=== PATIENT | female | born 1980 | race Caucasian/White ===

== ENCOUNTER 2024-10-22 07:53 | Inpatient (IN) ==
[2024-10-22] MEDS ORDERED: CALCIUM CARBONATE 500 MG CHEWABLE TAB PO PRN (09:47)
[2024-10-22] MEDS ORDERED: LIDOCAINE 1% LOCAL 20 ML VIAL INFIL PRN (09:47)
[2024-10-22] MEDS ORDERED: ACETAMINOPHEN 500 MG TAB PO PRN (09:47)
[2024-10-22] MEDS ORDERED: OXYTOCIN 30 UNITS/NSS 30 UNITS/500 ML BAG IV PRN (09:47)
[2024-10-22] MEDS: DINOPROSTONE 10 MG INSERT PV ONE (10:20)
--- NOTE | 2024-10-22 10:29 | History & Physical Report ---
Date of Service October 22, 2024 Assessment & Plan (1) Encounter for induction of labor: Plan: 44-year-old -0-1-0 at 39 weeks of gestation scheduled for induction of labor at term for AMA, Vital signs stable afebrile, GBS negative, labs pending heart rate reassuring, Cervix unfavorable, Cervidil is placed for cervical ripening, Discussed what to expect during induction of labor, continue to monitor closely, All questions were answered. (2) AMA (advanced maternal age) primigravida 35+: (3) Marginal insertion of umbilical cord affecting management of mother in third trimester: (4) Hx of partial thyroidectomy: Admission and Anticipated Discharge Date Admission Date: October 22, 2024 History of Present Illness Primary Care Provider: Kelsey Vitale DO Patient is a 42-year-old -0-1-0 at 39 weeks who was admitted for induction of labor at term for AMA. She has no complaints. She denies contractions, leakage of fluid, vaginal bleeding. She reports good movements. Her has been complicated by, 1. AMA, NIPT testing was low risk, has seen maternal- medicine, 2. History of trisomy 13 and prior , SAB at 11 weeks, 3. hypothyroidism, on levothyroxine, Allergies Allergy/AdvReac Type Severity Reaction Status Date / Time Sulfa (Sulfonamide Allergy Intermediate Rash Verified 10/22/24 08:52 Antibiotics) Home Medications Medication Instructions Recorded Confirmed Type levothyroxine 112 mcg capsule 112 mcg PO DAILY 10/22/24 10/22/24 History vits no.124-ferrous fum 1 tab PO DAILY 10/22/24 10/22/24 History 27 mg iron-folic acid 800 mcg tablet ( Vitamin) Patient History Medical History AMA (advanced maternal age) primigravida 35+ Marginal insertion of umbilical cord affecting management of mother in third trimester Surgical History Hx of partial thyroidectomy Family History Mother Hypertension Hyperlipidemia Father Hypertension Hyperlipidemia Social History Smoking Status: Former smoker Tobacco Type: Cigarettes Second Hand Exposure: No; Do You Dip or Chew Tobacco: No; Tobacco Cessation Education Requested by Patient: No Hx Alcohol Use: No Hx Substance Use: No Preferred Language: Slovenian Communication Ability: Effective [employer] Supervisor Required: No Beliefs That Will Affect Care: None marital status: Current Living Situation: Spouse Other Information That Helps Us Care for You: No Feels Safe at Home: Yes Safety Concerns: Feels Safe At This Time 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 no history of STDs, no history of chlamydia, gonorrhea, herpes Review of Systems as per Subjective / HPI Physical Exam Constitutional: WD/WN, vitals as above well developed, well nourished and comfortable Gastrointestinal (Abdomen): normal bowel sounds, soft, nontender, no hepat osplenomegaly ( gravid) Genitourinary: normal external appearance OB Exam Abdomen: + vertex ( confirmed with bedside ultrasound) Manual OB Exam: + cervical dilation fingertip, + cervical effacement 10% and + station high ( posterior) OB Exam Monitor Tracing: + external uterine monitor used and + category I Results & Data Vital Signs (Past 12 Hours) Vital Signs Temp Pulse Resp BP 10/22/24 08:21 36.6 C 18 10/22/24 08:16 107 H 133/80 (2) AMA (advanced maternal age) primigravida 35+ Trimester: third trimester Qualified Code(s): O09.513 - Supervision of elderly primigravida, third trimester
[2024-10-22] MEDS: LACTATED RINGER'S 1,000 ML IV PRN (10:49)
[2024-10-22 10:53] LABS: Hematocrit (blood only) 34.3 % (37.0-47.0); Hemoglobin 11.8 g/dl (12.0-16.0); Mean Corpuscular Hemoglobin 32.4 pg (25.0-34.0); Mean Corpuscular Hgb Conc 34.4 g/dL (32.0-36.0); Mean Corpuscular Volume 94.2 fL (80.0-100.0); Mean Platelet Volume 8.6 fL (9.4-12.4); Platelet Count 194 K/uL (130-400); RDW Coefficient of Variation 13.4 % (11.5-14.5); RDW Standard Deviation 46.2 fL (36.4-46.3); Red Blood Count 3.64 M/uL (4.20-5.40)
[2024-10-22 11:11] LABS: Albumin Globulin Ratio 1.3 (0.9-2); Albumin Level 3.5 gm/dl (3.4-5.0); BUN Creatinine Ratio 15.9 (10-20); Bilirubin,Total 0.3 mg/dl (0.2-1.0); Calcium 8.9 mg/dl (8.6-10.3); Globulin 2.7 gm/dl (2.5-4.0); Potassium 3.7 mmol/L (3.5-5.1); Total Protein 6.2 gm/dl (6.0-8.3)
--- OUTSIDE RECORDS SUMMARY | 2024-10-22 12:14 | External Medical Summary ---
Author Name Unknown Address Unknown Organization [id number] [place] [id number] Laboratory Report Ordering Provider Test Date Status NURSE,GW 10/17/2024 13:31:00 Final Observation Date Value Abnormality Reference (Units ) Status Color of Urine by Auto 10/17/2024 13:31:00 Yellow Light Yellow, Yellow Final Clarity, Urine 10/17/2024 13:31:00 Clear Clear Final Glucose [Mass/volume] in Urine by Automated test strip 10/17/2024 13:31:00 Negative Negative (mg/dL) Final Bilirubin.total [Presence] in Urine by Automated test strip 10/17/2024 13:31:00 Negative Negative Final Ketones [Mass/volume] in Urine by Automated test strip 10/17/2024 13:31:00 15 Abnormal Negative (mg/dL) Final Specific gravity, Urine 10/17/2024 13:31:00 >=1.030 1.003-1.030 Final Hemoglobin [Presence] in Urine by Automated test strip 10/17/2024 13:31:00 Negative Negative Final pH, Urine 10/17/2024 13:31:00 6.0 5.0, 5.5, 6.0, 6.5, 7.0, 7.5 (units) Final Protein [Mass/volume] in Urine by Automated test strip 10/17/2024 13:31:00 Trace Abnormal Negative (mg/dL) Final Urobilinogen, Urine 10/17/2024 13:31:00 0.2 0.2, 1.0 (mg/dL) Final Nitrite [Presence] in Urine by Automated test strip 10/17/2024 13:31:00 Negative Negative Final Leukocyte esterase [Presence] in Urine by Automated test strip 10/17/2024 13:31:00 Trace Abnormal Negative Final Performing Location [facility] [place] [id number]
--- OUTSIDE RECORDS SUMMARY | 2024-10-22 12:14 | External Medical Summary | Summary of Care ---
Author Name Unknown Organization [facility] Address [address] [address] Phone [phone] Care Team Providers Care Tool Crib Lead Name Role Phone Kelsey Vitale DO Primary Care Provider [phone] Reason for Visit * Reason Onset Date Comments Forms Request 10/06/2024 [facility] paperwork f or Encounter Details Date Type Department Care Team (Late st Contact Info) Description 10/06/2024 Telephone Gynecology/Obstetrics [facility] [address] [place] [id number] Analilia Perry CRNP [address] [place] [address] Forms Request ([facility] paperwork for ) Allergies Active Allergy Reactions Criticality Noted Date Comments Sulfa Antibiotics Hives 08/13/2018 documented as of this encounter (statuses as of 10/07/2024) Medications 28-0.8 MG Oral Tablet Take by mouth. Active Levothyroxine Sodium 112 MCG Oral Tablet (Levoxyl)Indica tions:Hypothyro idism affecting in first trimester 1 tablet by mouth on Sunday, Sunday, Sunday, Sunday, Sunday; 2 tablets on / (at least 30 min prior to breakfast or other meds) 36 Tablet 6 4 Active documented as of this encounter (statuses as of 10/07/2024) Active Problems Problem Noted Date Diagnosed Date Marginal insertion of umbili zach cord affecting management of mother 06/13/2024 Assessment & Plan (06/13/2024 2:23 PM EST): A marginal cord insertion was noted on today's u/s. This finding may be associated with a mildly increased risk for poor OB outcomes, including PTD, pre-eclampsia, and IUGR. Family history of trisomy 13 03/24/2024 Overview (03/27/2024): Qnatal positive for Trisomy 13 in 10/2023 -- pt had miscarriage Patient deferred genetic counseling referral at this time. Patient desires NIPT. Assessment & Plan (03/25/2024 1:41 PM EDT): Offer genetic counseling referral. At risk for complication of 10/03/2023 Overview (03/27/2024): Moderate risk factors for preeclampsia: nulliparity, age >35YO, and BMI >30 BP Readings from Last 5 Encounters: 03/24/24 118/70 02/15/24 126/68 11/09/23 108/70 11/02/23 135/77 10/30/23 112/64 Discussed recommendation for bASA therapy (aspirin 81mg/day) starting at 13w gestation. Assessment & Plan (03/27/2024 9:57 AM EDT): For patients with more than one moderate risk factor for developing preeclampsia, we recommend aspirin (dose less than 81 mg), starting at 12-28 weeks' gestation (optimally before 16 weeks) continued until delivery. These moderate risk factors include: nulliparity, obesity (BMI greater than 30), race, use of assisted reproductive techniques, family history of preeclampsia (ie mother or sister), age greater than or equal to 35, personal history factors (eg low weight, SGA, or previous adverse outcome, greater than 10-year interval). There is no evidence of increased risk of bleeding complications, abruption, early closure of the ductus arteriosus or intraventricular hemorrhage in women exposed to low-dose aspirin. Contraindications to aspirin use during include: Women with a history of aspirin allergy or hypersensitivity to other salicylates Women with a history of a hypersensitivity to NSAIDs Women with nasal polyps as it can result in life-threatening bronchoconstriction Women with a history of aspirin-induced bronchospasm History of gastrointestinal bleeding, active peptic ulcer disease, and severe hepatic dysfunction Thrombocytopenia (platelets less than 150,000) Assessment & Plan (10/03/2023 9:46 AM EST): For patients with more than one moderate risk factor for developing preeclampsia, we recommend aspirin (dose less than 81 mg), starting at 12-28 weeks' gestation (optimally before 16 weeks) continued until delivery. These moderate risk factors include: nulliparity, obesity (BMI greater than 30), race, use of assisted reproductive techniques, family history of preeclampsia (ie mother or sister), age greater than or equal to 35, personal history factors (eg low weight, SGA, or previous adverse outcome, greater than 10-year interval). There is no evidence of increased risk of bleeding complications, abruption, early closure of the ductus arteriosus or intraventricular hemorrhage in women exposed to low-dose aspirin. Contraindications to aspirin use during include: Women with a history of aspirin allergy or hypersensitivity to other salicylates Women with a history of a hypersensitivity to NSAIDs Women with nasal polyps as it can result in life-threatening bronchoconstriction Women with a history of aspirin-induced bronchospasm History of gastrointestinal bleeding, active peptic ulcer disease, and severe hepatic dysfunction Thrombocytopenia (platelets less than 150,000) High-risk 09/26/2023 Hypothyroidism affecting 09/26/2023 Overview (07/17/2024): Postoperative hypothyroidism History of Graves disease, was on methimazole in past. Patient had thyroidectomy by Dr. Regalado in May 2015, and pathology was benign. Managed by PCP Managed with Levothyroxine 112 mcg daily Lab Results Component Value Date/Time TSH - [facility] 1.55 05/22/2024 04:07 PM TSH - [facility] 1.11 02/25/2020 08:45 AM Assessment & Plan (06/13/2024 1:25 PM EST): TSH Results: Lab Results Component Value Date/Time TSH - [facility] 1.55 05/22/2024 04:07 PM TSH - [facility] 1.33 03/14/2024 08:14 AM TSH - [facility] 0.17 (L) 02/11/2024 12:07 PM TSH - [facility] 1.11 02/25/2020 08:45 AM TSH - [facility] 0.72 04/02/2019 07:24 AM Stable on current levothyroxine. Assessment & Plan (03/25/2024 1:42 PM EDT): CONSIDERATIONS: Discussed with the patient that uncontrolled maternal hypothyroidism is associated with compromised neuropsychological development of the developing fetus in addition to an increased risk of miscarriage, , preeclampsia, placental abruption, low weight infants, and IUFD. These risks are modifiable with thyroid-replacement medications. Thyroid-replacement therapies are safe to use during and essential to normal development. One third of hypothyroid patients will require increased T4 supplementation in . Discussed that she should space her thyroxine dose and her vitamin, iron or calcium doses by 2-3 hours as these can interfere with thyroxine absorption. If hypothyroidism is due to treated Graves' disease, the fetus may be at risk for or goiter/hyperthyroidism due to the residual presence of maternal thyroid receptor antibodies (TRAb). RECOMMENDATIONS: In women with pre- diagnosis of hypothyroidism, recommend assessing TSH every 4-6 weeks until the patient is euthyroid based on TSH (first trimester, 0.1-2.5 mIU/L; second trimester, 0.2-2.5 mIU/L; third trimester, 0.3-2.5 mIU/L). After any adjustment of thyroid replacement dosing, recheck TSH 4-6 weeks later. Once euthyroidism is attained, TSH should be assessed every trimester. In those with previous radioiodine ablation or thyroidectomy, anticipatory increases of T4 replacement by 25% are suggested to decrease the likelihood of significant hypothyroidism in . Maternal Medicine ultrasound is only indicated if patient requires an adjustment of her thyroid replacement therapy dosing after the first trimester of . Refer back to [facility] if this occurs. She should continue to have growth assessments with MFM while she is clinically hypothyroid. If patient experiences thyroid goiter or nodule during , we recommend that she be referred to endocrinology for evaluation and management. is not a contraindication to fine needle aspiration but should be handled at the discretion of the highway technician. If hypothyroidism is poorly controlled, consider weekly NSTs at 32 weeks. For women with a history of treated Graves' disease, third trimester MFM ultrasound should be performed to evaluate for goiter. Please refer immediately back to [facility] for persistent tachycardia on office evaluation as this may also be a symptom of hyperthyroidism. Please check TSI/TRAb after 20 weeks and notify MF if positive by sending a message to the [facility] Advanced Practitioner Pool ([id number]). We will alert pediatrics to the need for possible follow-up. Assessment & Plan (10/01/2023 7:20 PM EST): CONSIDERATIONS: Discussed with the patient that uncontrolled maternal hypothyroidism is associated with compromised neuropsychological development of the developing fetus in addition to an increased risk of miscarriage, , preeclampsia, placental abruption, low weight infants, and IUFD. These risks are modifiable with thyroid-replacement medications. Thyroid-replacement therapies are safe to use during and essential to normal development. One third of hypothyroid patients will require increased T4 supplementation in . Discussed that she should space her thyroxine dose and her vitamin, iron or calcium doses by 2-3 hours as these can interfere with thyroxine absorption. If hypothyroidism is due to treated Graves' disease, the fetus may be at risk for or goiter/hyperthyroidism due to the residual presence of maternal thyroid receptor antibodies (TRAb). RECOMMENDATIONS: In women with pre- diagnosis of hypothyroidism, recommend assessing TSH every 4-6 weeks until the patient is euthyroid based on TSH (first trimester, 0.1-2.5 mIU/L; second trimester, 0.2-2.5 mIU/L; third trimester, 0.3-2.5 mIU/L). After any adjustment of thyroid replacement dosing, recheck TSH 4-6 weeks later. Once euthyroidism is attained, TSH should be assessed every trimester. In those with previous radioiodine ablation or thyroidectomy, anticipatory increases of T4 replacement by 25% are suggested to decrease the likelihood of significant hypothyroidism in . Maternal Medicine ultrasound is only indicated if patient requires an adjustment of her thyroid replacement therapy dosing after the first trimester of . Refer back to [facility] if this occurs. She should continue to have growth assessments with [facility] while she is clinically hypothyroid. If patient experiences thyroid goiter or nodule during , we recommend that she be referred to endocrinology for evaluation and management. is not a contraindication to fine needle aspiration but should be handled at the discretion of the highway technician. If hypothyroidism is poorly controlled, consider weekly NSTs at 32 weeks. For women with a history of treated Graves' disease, third trimester MFM ultrasound should be performed to evaluate for goiter. Please refer immediately back to [facility] for persistent tachycardia on office evaluation as this may also be a symptom of hyperthyroidism. Please check TSI/TRAb after 20 weeks and notify [facility] if positive by sending a message to the [facility] Advanced Practitioner Pool ([id number]). We will alert pediatrics to the need for possible follow-up. AMA (advanced maternal age) multigravida 35+ Overview (04/16/2024): Age 44YO at [facility] Patient desires NIPT - ordered by [facility]. Patient deferred genetic counseling referral at this time. 04/16/24: NIPT LR Assessment & Plan (06/13/2024 1:26 PM EST): Low risk NIPT and msAFP appreciated. Plan to repeat u/s for growth in the third trimester as well as NST at 38 weeks and delivery by EDC reviewed. Assessment & Plan (03/27/2024 9:57 AM EDT): CONSIDERATIONS: We reviewed the most pertinent aspects of the following: Advanced maternal age (AMA) refers to a woman with a nesbitt who will be at the age of 35 or older at the estimated time of delivery and may be associated with increased morbidity. After discussion of the genetic screening/testing options, the patient desires cffDNA screening, and testing was coordinated by [facility]. Cell-free DNA (cffDNA) screening is a genetic screening option that analyzes maternal blood for DNA that is placental in origin and targets the following conditions: Trisomy 21 (Down syndrome), trisomy 18, trisomy 13, and sex chromosome abnormalities such as monosomy X (Soriano syndrome), and sex chromosome trisomies (triple X, Klinefelter syndrome, XYY). It may also evaluate for other genetic alterations such as microdeletions, depending on the specific test. It reveals the sex of the fetus but should generally not be performed solely for this indication. The screening test can be performed after 10 weeks gestation. Results provided are NOT diagnostic, but provide a risk estimate. Types of results include low-risk/negative, high-risk/positive, and inconclusive. Low-risk results convey a low risk for the conditions screened, while high-risk results will indicate which condition is high risk and the likelihood of the condition based on the results. High-risk and inconclusive results would require follow up with a Maternal- Medicine genetic counselor. Amniocentesis would be recommended in the setting of high-risk results. Cost of cffDNA screening is dependent on health insurance plan. Offer MSAFP only (not Quad Screen) at 16-22 weeks if screening for open neural tube defects is desired. Amniocentesis for diagnosis of chromosomal abnormalities is also available. The risk of complications from the procedure and that risk is 1 in 500 (0.2%). In addition to the risk of chromosomal abnormalities, there is an increased risk of congenital/structural anomalies. RECOMMENDATIONS: Recommend MFM anatomy ultrasound at 19-20 weeks gestation. As patient is 40 or greater at [place]: Recommend ultrasound for growth 28-30 weeks gestation. Recommend surveillance with weekly NST at 38 weeks. Recommend delivery by EDC. Assessment & Plan (10/29/2023 3:35 PM EDT): I reviewed the ultrasound with her. There is no heart rate identified on today's ultrasound, indicating a demise. The crown-rump length is consistent with an 11 week 0 day gestation. I explained the above findings with the patient. She has yet to complete any noninvasive screening. I told her that she should not get the blood drawn as the demise we will greatly affect this result. We did review some of the causes of miscarriage at this point in . She did have some spotting with wiping today and some very minimal cramping. I told her if this continues, then she is to call her primary OB provider or come into the hospital to be evaluated. I told her to call her primary OB provider tomorrow for plans on follow-up. Assessment & Plan (10/03/2023 9:43 AM EST): CONSIDERATIONS: We reviewed the most pertinent aspects of the following: Advanced maternal age (AMA) refers to a woman with a nesbitt who will be at the age of 35 or older at the estimated time of delivery and may be associated with increased morbidity. After discussion of the genetic screening/testing options, the patient desires cffDNA screening, and testing was coordinated by [facility]. Cell-free DNA (cffDNA) screening is a genetic screening option that analyzes maternal blood for DNA that is placental in origin and targets the following conditions: Trisomy 21 (Down syndrome), trisomy 18, trisomy 13, and sex chromosome abnormalities such as monosomy X (Soriano syndrome), and sex chromosome trisomies (triple X, Klinefelter syndrome, XYY). It may also evaluate for other genetic alterations such as microdeletions, depending on the specific test. It reveals the sex of the fetus but should generally not be performed solely for this indication. Results provided are NOT diagnostic, but provide a risk estimate. Types of results include low-risk/negative, high-risk/positive, and inconclusive. Low-risk results convey a low risk for the conditions screened, while high-risk results will indicate which condition is high risk and the likelihood of the condition based on the results. High-risk and inconclusive results would require follow up with a Maternal- Medicine genetic counselor. Amniocentesis would be recommended in the setting of high-risk results. Offer MSAFP only (not Quad Screen) at 16-22 weeks if screening for open neural tube defects is desired. Amniocentesis for diagnosis of chromosomal abnormalities is also available. The risk of complications from the procedure and that risk is 1 in 500 (0.2%). In addition to the risk of chromosomal abnormalities, there is an increased risk of congenital/structural anomalies. RECOMMENDATIONS: Recommend MFM anatomy ultrasound at 19-20 weeks gestation. As patient is 40 or greater at [place]: Recommend ultrasound for growth 28-30 weeks gestation. Recommend surveillance with weekly NST at 38 weeks. Recommend delivery by EDC. Obesity in , antepartum 09/26/2023 Overview (03/27/2024): The patient's pre-gravid BMI is 31.63. Class 1 Early 1hr GCT ordered. Assessment & Plan (03/25/2024 1:42 PM EDT): CONSIDERATIONS: Discussed obstetrical risks associated with class I obesity (pre- BMI of 30 to 34.9) Reviewed that the accuracy of ultrasound at diagnosing anomalies is significantly decreased for women with an increased BMI. RECOMMENDATIONS: Recommend restricting weight gain during to 11-20 pounds. Consider referral for nutrition consult. Recommend evaluation for signs and symptoms (snoring, excessive daytime sleepiness witnessed apnea or unexplained hypoxia) of obstructive sleep apnea. If any of these are present, referral to Sleep Medicine specialist for further evaluation should be considered. Recommend performing gestational diabetes mellitus screen at first visit and repeat again at 26-28 weeks if early screen is normal. Recommend Maternal- Medicine ultrasound for anatomy at 20 weeks. Assessment & Plan (10/01/2023 7:17 PM EST): DISCUSSION: Discussed obstetrical risks associated with class I obesity (pre- BMI of 30 to 34.9). Reviewed that the accuracy of ultrasound at diagnosing anomalies is significantly decreased for women with an increased BMI. RECOMMENDATIONS: Recommend restricting weight gain during to 11-20 pounds. Consider referral for nutrition consult. Recommend evaluation for signs and symptoms (snoring, excessive daytime sleepiness witnessed apnea or unexplained hypoxia) of obstructive sleep apnea. If any of these are present, referral to Sleep Medicine specialist for further evaluation should be considered. Recommend performing gestational diabetes mellitus screen at first visit and repeat again at 26-28 weeks if early screen is normal. Recommend Maternal- Medicine ultrasound for anatomy at 20 weeks. Postoperative hypothyroidism 08/13/2018 Overview (08/13/2018): S/p partial thyroidectomy Chronic allergic rhinitis 08/13/2018 Estimated Date of Delivery Comme nts Yes 10/29/2024 Based on last me nstrual period of 01/23/2024 (Exact Date) documented as of this encounter (statuses as of 10/07/2024) Resolved Problems Problem Noted Date Diagnosed Date Resolved Date Maternal care for (suspected ) chromosomal abnormality in fetus, trisomy 13, fetus 1 10/31/2023 03/24/2024 Overview (10/31/2023): Qnatal positive for Trisomy 13 in 10/2023 -- pt had miscarriage History of Graves' disease 10/01/2023 0 03/24/2024 Overview (10/03/2023): History of Graves disease - S/P partial thyroidectomy Per MFM: Please check TSI/TRAb after 20 weeks and notify MFM if positive by sending a message to the [facility] Advanced Practitioner Pool ([id number]). Abnormal mammogram 04/17/2022 Overview (04/17/2022): Subcentimeter focal asymmetry about 8/9 o'clock middle to posterior depth, right breast. Additional imaging is advised. No mammographic evidence of malignancy In the left breast. Further imaging right breast ordered documented as of this encounter (statuses as of 10/07/2024) Immunizations Name Administration Dates Next Due DTaP Dipth/Tet/Acell Pertussis (Infanrix), Peds 04/24/1986,10/18/1983,1982,08/15,1982 HIB PRP-T, 4 Dose, PF, IM (H iberix, ActHib) 10/18/1983,1982,1982,06/16 Hepatitis B, 0-19 yrs 07/12/1998,01/13/1998,0512/1997 IPV - Polio Virus Vaccine (Inact) 1983,1982,1982,06/16 MMR - Measles/Mumps/Rubella Vaccine 12/02/1997,1 1982 Meningococcal Conjugate Vacc ine (Menactra/Menveo) 07/30/2000 Seasonal Influenza, PF, 6 M & above, IM , (FluLaval or Fluzone) 04/21/2022,04/19/2021,04/15/2020,08/18 Seasonal Influenza, Trivalen t, (IIV3), PF, (Fluzone) 06/19/2024 TDAP, Age 7 and older, IM (Adacel) 08/04/2024, documented as of this encounter Social History Tobacco Use Types Packs/Day Years Used Date Smoking Tobacco: Former Cigarettes 0.3 5 2 008 - 2013 Passive Smoke Exposure: Never Smokeless Tobacco: Never Alcohol Use Standard Drinks/Week Comments Not Currently 0 (1 standard drink = 0.6 oz pur e alcohol) denies in AUDIT-C Answer Date Recorded Q1: How often do you have a drink containing alcohol? 4 or more times a week 11/24/2020 Q2: How many drinks containi ng alcohol do you have on a typical day when you are drinking? 1 or 2 Q3: How often do you have si x or more drinks on one occasion? Less than monthly 11/24/2020 PHQ-2 Answer Date Recorded PHQ Adult Total Score 1 02/15/2024 Hunger Vital Sign Answer Date Recorded Within the past 12 months, y ou worried that your food would run out before you got the money to buy more. Never true 06/05/20 24 Within the past 12 months, t he food you bought just didn't last and you didn't have money to get more. Never true 06/05/2024 [place] Depression Scale Answer Date Recorded [place] Depression Scale Total 3 09/18/2024 The thought of harming myself has occurred to me . Never 09/18/2024 Childcare Answer Date Recorded Do you feel overwhelmed with taking care of a child, family member or friend? No 06/05/2024 Does your family need help f inding childcare? (Household - for ages 0-17 years) Not on file 06/05/2024 Clothing Answer Date Recorded Have you been unable to get clothing when it was really needed? No 06/05/2024 Is your family able to get c lothes or diapers when needed? (Household - for ages 0-17 years) Not on file 06/05/2024 Personal Safety Answer Date Recorded Do you feel unsafe or have concerns for your saf ety? No 06/05/2024 Do you have concerns for you r family's safety? (Household - for ages 0-17 years) Not on file 06/05/2024 Utilities Answer Date Recorded Do you have trouble paying y our heating, water, or electric bill? No 06/05/2024 Is your family able to pay t he heat, water, or electric bill? (Household - for ages 0-17 years) Not on file 06/05/2024 Does your family have access to good internet? (Household - for ages 0-17 years) Not on file 06/05/2024 Employment Status Answer Date Recorded Are you unemployed or without regular income? No 06/05/2024 Does the household have a [facility] source [facility] income? (Household - for ages 0-17 years) Not on file 06/05/2024 Social Connections Answer Date Recorded How often do you feel lonely or isolated from th ose around you? Never 06/05/2024 Financial Resource Strain Answer Date R ecorded Do you have any trouble payi ng for your medications, or do you think you might in the future? No 06/05/2024 Does your family have troubl e paying for medicine? (Household - for ages 0-17 years) Not on file 06/05/2024 Transportation Needs Answer Date Record ed Do you have trouble getting a ride to medical visits or work? (Adult - for ages 18 years and over) Not on file 06/05/2024 Does your family have a hard time getting a ride to doctors visits? (Household - for ages 0-17 years) Not on file 06/05/2024 Has lack of transportation k ept you from medical appointments, meetings, work, or from getting things needed for daily living? Check all that apply. No 06/05/2024 Do you (or your family) have trouble finding or paying for a ride (transportation)? (Household - for ages 0-17 years) Not on file 06/05/2024 Housing Stability Answer Date Recorded Do you currently live in a s helter or have no steady place to sleep at night? No 06/05/2024 Do you think you are at risk of becoming homeless? (Adult - for ages 18 years and over) Not on file 06/05/2024 Does your family worry about paying for your home or becoming homeless? (Household - for ages 0-17 years) Not on file 1 08/05/2023 Are you homeless or worried that you might be in the future? No 06/05/2024 Are you (or your family) tiara eless or worried that you might be in the future? (Household - for ages 0-17 years) Not on file Food Insecurity Answer Date Recorded Do you need food for this week? No 06/05/2024 Are you able to get enough f ood for your family? (Household - for ages 0-17 years) Not on file 06/05/2024 Does your family need food t his week? (Household - for ages 0-17 years) Not on file 06/05/2024 Do you always have enough fo od for your family? (Household - for ages 0-17 years) Not on file 06/05/2024 Food Insecurity Answer Date Recorded Within the past 12 months, y ou worried that your food would run out before you got the money to buy more. Never true 06/05/20 24 Within the past 12 months, t he food you bought just didn't last and you didn't have money to get more. Never true 06/05/2024 Do you need food for this week? No 06/05/2024 Estimated Date of Delivery Comme nts Yes 10/29/2024 Based on last me nstrual period of 01/23/2024 (Exact Date) Sex and Gender Information Value Date Recorded Sex Assigned at Female 04/06/2021 4:24 PM EDT Legal Sex Female 5:44 AM EST Gender Identity Female 04/06/2021 4:24 PM EDT Sexual Orientation Straight 04/06/2021 4: 24 PM EDT Occupation Industry Job Start Date Job End Date [employer] Not on file Not on file Not on file documented as of this encounter Miscellaneous Notes * Telephone Encounter - Maria Del Carmen Seay LPN - 10/06/2024 2:13 PM EDT Paperwork completed/signed by provider. Copy made and placed in scan bin. Original in pick up worker folder in triage. * Telephone Encounter - Maria Del Carmen Seay LPN - 10/06/2024 12:50 PM EDT Pt dropping of FMLA paperwork. Paperwork placed in Casandra's office for completion. documented in this encounter Plan of Treatment Upcoming Encounters Date Type Department Care Team (Late st Contact Info) Description 10/15/2024 11:30 AM EDT Office Visit Gynecology/Obstetrics Nicole Osorio [address] [place] [address] Taryn Johnson CRNP [address] [place] [address] [facility] Non Stress Tests Omar [address] [place] [address] 11/12/2024 11:30 AM EDT Telemedicine Gynecology/Obstetrics Nicole Osorio [address] [place] [address] Taryn Johnson CRNP [address] [place] [address] 12/04/2024 12:00 PM EDT Office Visit Gynecology/Obstetrics Nicole Osorio [address] [place] [address] Taryn Jonhson CRNP [address] [place] [address] Health Maintenance Due Date Last Done Comments HPV/Co-Test 2012 Cervical Cancer Screening 09/16/2022 Pap Smear 09/16/2022 09/16/2019, 08/30, 01/14/2018 COVID-19 Vaccine ( season) 2024 Mammogram 06/18/2024 06/18/2023, 05/31, 05/02/2022, Additional history exists Depression Screening 02/14/2025 02/15/2024 TSH 08/04/2025 08/04/2024, 04/30, 03/14/2024, Additional history exists Diabetes Screening 01/23/2026 01/23/2023, 0 01/23/2022, 02/25/2020, Additional history exists Lipid Panel 01/24/2028 01/23/2023, 12/29, 02/25/2020, Additional history exists DTap/Tdap Vaccines (8 - Td or Tdap) 08/04/2034 08/04/2024, 01/01/2014, 04/24/1986, Additional history exists Hepatitis B Vaccine Completed 07/12/1998, 01/13/1998, 12/02/1997 MENINGOCOCCAL (MENACTRA/MENVEO) Completed 07/30/2000 Influenza Vaccine (FLU shot) Completed , 04/21/2022, 04/19/2021, Additional history exists HPV (Gardasil) Vaccine Aged Out No lo nger eligible based on patient's age to complete this topic Meningitis B Vaccine (Bexsero/Trumemba) Aged Out No longer eligible based on patient's age to complete this topic Pneumococcal Vaccine: Pediatrics (0 to 5 Years) and At-Risk Patients (6 to 18 Years and 19+ Years) Aged Out No longer eligib le based on patient's age to complete this topic documented as of this encounter Goals Goal Patient Goal Type Associated Problems Recent Progress Patient-Stated? Author Reminders Care Plan OB Reminders No Rasheeda Provider documented as of this encounter Medical Devices Not on filedocumented as of this encounter Additional Health Concerns Active Problems Noted Date Diagnosed Date OB Reminders 04/08/2024 documented as of this encounter Care Teams Tool Crib Lead Relationship Specialty Start Date End Date Kelsey Vitale DO [address] [place] [address] PCP - General Family Medicine 11/02/23 documented as of this encounter
--- OUTSIDE RECORDS SUMMARY | 2024-10-22 12:14 | External Medical Summary | Summary of Care ---
Author Name Unknown Organization [facility] Address [address] [facility] [place] [address] Phone [phone] Care Team Providers Care Property Utilization Manager Name Role Phone Kelsey Vitale DO Primary Care Provider Encounter Details Date Type Department Care Team (Late st Contact Info) Description 10/10/2024 Telephone [facility] [address] [place] [address] Raymond Wood MD [address] [place] [phone] Allergies Active Allergy Reactions Criticality Noted Date Comments Sulfa Antibiotics Hives 08/13/2018 documented as of this encounter (statuses as of 10/10/2024) Medications 28-0.8 MG Oral Tablet Take by mouth. Active Levothyroxine Sodium 112 MCG Oral Tablet (Levoxyl)Indica tions:Hypothyro idism affecting in first trimester 1 tablet by mouth on Sunday, Sunday, Sunday, Sunday, Sunday; 2 tablets on Tu/Thurs (at least 30 min prior to breakfast or other meds) 36 Tablet 6 4 Active documented as of this encounter (statuses as of 10/10/2024) Active Problems Problem Noted Date Diagnosed Date [...] first trimester of . Refer back to MFM if this occurs. She should continue to have growth assessments with MFM while she is clinically hypothyroid. If patient experiences thyroid goiter or nodule during , we recommend that she be referred to endocrinology for evaluation and management. is not a contraindication to fine needle aspiration but should be handled at the discretion of the quotation clerk. If hypothyroidism is poorly controlled, consider weekly NSTs at 32 weeks. For women with a history of treated Graves' disease, third trimester MFM ultrasound should be performed to evaluate for goiter. Please refer immediately back to MFM for persistent tachycardia on office evaluation as this may also be a symptom of hyperthyroidism. Please check TSI/TRAb after 20 weeks and notify MFM if positive by sending a message to the [facility] Advanced Practitioner Pool ([id number]). We will alert pediatrics to the need [...] first trimester of . Refer back to [facility] if this occurs. She should continue to have growth assessments with MFM while she is clinically hypothyroid. If patient experiences thyroid goiter or nodule during , we recommend that she be referred to endocrinology for evaluation and management. is not a contraindication to fine needle aspiration but should be handled at the discretion of the quotation clerk. If hypothyroidism is poorly controlled, consider weekly NSTs at 32 weeks. For women with a history of treated Graves' disease, third trimester MFM ultrasound should be performed to evaluate for goiter. Please refer immediately back to MFM for persistent tachycardia on office evaluation as this may also be a symptom of hyperthyroidism. Please check TSI/TRAb after 20 weeks and notify MFM if positive by sending a message to the [facility] Advanced Practitioner Pool ([id number]). We will alert pediatrics to the need for possible follow-up. AMA (advanced maternal age) multigravida 35+ Overview (04/16/2024): Age 44YO at [facility] Patient desires NIPT - ordered by [facility]. Patient deferred genetic counseling referral at [...] cffDNA screening, and testing was coordinated by [facility]. Cell-free DNA (cffDNA) screening is a [...] cffDNA screening, and testing was coordinated by [facility]. Cell-free DNA (cffDNA) screening is a [...] as of this encounter (statuses as of 10/10/2024) Resolved Problems Problem Noted Date Diagnosed Date [...] positive by sending a message to the [facility] Advanced Practitioner Pool ([id number]). Abnormal mammogram 04/17/2022 3 Overview (04/17/2022): Subcentimeter focal asymmetry about 8/9 o'clock middle to posterior depth, right breast. Additional imaging is advised. No mammographic evidence of malignancy In the left breast. Further imaging right breast ordered documented as of this encounter (statuses as of 10/10/2024) Immunizations Name Administration Dates Next Due DTaP Dipth/Tet/Acell Pertussis (Infanrix), Peds 04/24/1986,10/18/1983,1982,08/15,1982 HIB PRP-T, 4 Dose, PF, IM (H iberix, ActHib) 10/18/1983,1982,1982,06/16 Hepatitis B, 0-19 yrs 07/12/1998,01/13/1998,12/1997 IPV - Polio Virus Vaccine (Inact) 1983,1982,1982,06/16 [...] money to get more. Never true 06/05/2024 Coin Depression Scale Answer Date Recorded Coin Depression Scale Total 3 09/18/2024 The thought [...] No 06/05/2024 Does the household have a re gular source of income? (Household - for ages [...] Industry Job Start Date Job End Date [employer] Not on file Not on file Not on file documented as of this encounter Miscellaneous Notes * Telephone Encounter - Yolis Duarte RN - 10/10/2024 11:38 AM EDT Pt c/o back pain. Just started today. ONly when sitting. She has not tried tylenol or heat. Advisedto try this and see if it helps and if not, may be more of a late stage concern. Pt is aware. documented in this encounter Plan of Treatment Upcoming Encounters Date Type Department Care Team (Late st Contact Info) Description 10/15/2024 11:30 AM EDT Office Visit Gynecology/Obstetrics [address] [place] [address] Taryn Johnson CRNP [address] [place] [address] Osorio Non Stress Tests Omar [address] [place] [address] 11/12/2024 11:30 AM EDT Telemedicine Gynecology/Obstetrics [facility] [address] [place] [address] Taryn Johnson CRNP [address] [place] [address] 12/04/2024 12:00 PM EDT Office Visit Gynecology/Obstetrics [facility] [address] [place] [address] Taryn Johnson CRNP [address] [place] [address] Health Maintenance Due Date Last Done Comments [...] Author Reminders Care Plan OB Reminders No Mychart, Provider documented as of this encounter Medical Devices Not on filedocumented as of this encounter Additional Health Concerns Active Problems Noted Date Diagnosed Date OB Reminders 04/08/2024 documented as of this encounter Care Teams Property Utilization Manager Relationship Specialty Start Date End Date Kelsey Vitale DO [address] [place] [address] PCP - General Family Medicine 11/02/23 documented as of this encounter
--- OUTSIDE RECORDS SUMMARY | 2024-10-22 12:14 | External Medical Summary | Summary of Care ---
Author Name Unknown Organization [facility] Address [address] [facility] [address] Phone [phone] Care Team Providers Care Braiding Operator Name Role Phone Kelsey Vitale DO Primary Care Provider [phone] Reason for Visit * Reason Comments Return Visit Non Stress Test Encounter Details Date Type Department Care Team (Late st Contact Info) Description 10/15/2024 11:30 AM EDT Office Visit Gynecology/Obstetric s Nicole Osorio [address] [place] [address] Taryn Johnson CRNP [address] [place] [address] [place] Non Stress Tests Omar [address] [place] [address] High-risk in third trimester*; Postoperative hypothyroidism; Hypothyroidism affecting in third trimester; Antepartum multigravida of advanced maternal age; Obesity in , antepartum; At risk for complication of ; Family history of trisomy 13; Marginal insertion of umbilical cord affecting management of mother; Multigravida of advanced maternal age in third trimester Allergies Active Allergy Reactions Criticality Noted Date Comments Sulfa Antibiotics Hives 08/13/2018 documented as of this encounter (statuses as of 10/15/2024) Medications 28-0.8 MG Oral Tablet Take by mouth. Active Levothyroxine Sodium 112 MCG Oral Tablet (Levoxyl)Indica tions:Hypothyro idism affecting in first trimester 1 tablet by mouth on Sunday, Sunday, Sunday, Sunday, Sunday; 2 tablets on / (at least 30 min prior to breakfast or other meds) 36 Tablet 6 4 Active documented as of this encounter (statuses as of 10/15/2024) Active Problems Problem Noted Date Diagnosed Date [...] first trimester of . Refer back to [facility] if this occurs. She should continue to have growth assessments with MFM while she is clinically hypothyroid. If patient experiences thyroid goiter or nodule during , we recommend that she be referred to endocrinology for evaluation and management. is not a contraindication to fine needle aspiration but should be handled at the discretion of the water plant maintenance mechanic. If hypothyroidism is poorly controlled, consider weekly NSTs at 32 weeks. For women with a history of treated Graves' disease, third trimester MFM ultrasound should be performed to evaluate for goiter. Please refer immediately back to [facility] for persistent tachycardia on office evaluation as this may also be a symptom of hyperthyroidism. Please check TSI/TRAb after 20 weeks and notify [facility] if positive by sending a message to the [facility] Advanced Practitioner Pool ([id number]). We will alert pediatrics to the need [...] first trimester of . Refer back to [facility] if this occurs. She should continue to have growth assessments with MFM while she is clinically hypothyroid. If patient experiences thyroid goiter or nodule during , we recommend that she be referred to endocrinology for evaluation and management. is not a contraindication to fine needle aspiration but should be handled at the discretion of the water plant maintenance mechanic. If hypothyroidism is poorly controlled, consider weekly NSTs at 32 weeks. For women with a history of treated Graves' disease, third trimester MFM ultrasound should be performed to evaluate for goiter. Please refer immediately back to [facility] for persistent tachycardia on office evaluation as this may also be a symptom of hyperthyroidism. Please check TSI/TRAb after 20 weeks and notify [facility] if positive by sending a message to the [facility] Advanced Practitioner Pool ([id number]). We will alert pediatrics to the need for possible follow-up. AMA (advanced maternal age) multigravida 35+ Overview (04/16/2024): Age 44YO at [facility] Patient desires NIPT - ordered by [facility]. Patient deferred genetic counseling referral at [...] cffDNA screening, and testing was coordinated by [facility]. Cell-free DNA (cffDNA) screening is a [...] increased risk of congenital/structural anomalies. RECOMMENDATIONS: Recommend M anatomy ultrasound at 19-20 weeks gestation. As [...] cffDNA screening, and testing was coordinated by [facility]. Cell-free DNA (cffDNA) screening is a genetic [...] as of this encounter (statuses as of 10/15/2024) Resolved Problems Problem Noted Date Diagnosed Date [...] positive by sending a message to the [facility] Advanced Practitioner Pool ([id number]). Abnormal mammogram 04/17/2022 3 Overview (04/17/2022): Subcentimeter focal asymmetry about 8/9 o'clock middle to posterior depth, right breast. Additional imaging is advised. No mammographic evidence of malignancy In the left breast. Further imaging right breast ordered documented as of this encounter (statuses as of 10/15/2024) Immunizations Name Administration Dates Next Due DTaP [...] money to get more. Never true 06/05/2024 [place] Depression Scale Answer Date Recorded [place] Depression Scale Total 3 09/18/2024 The thought [...] 06/05/2024 Does the household have a re lar source of income? (Household - for ages [...] Industry Job Start Date Job End Date [employer] Not on file Not on file Not on file documented as of this encounter Last Filed Vital Signs Vital Sign Reading Time Taken Comments Blood Pressure 134/88 10/15/2024 11:30 AM EDT Pulse - - Temperature - - Respiratory Rate - - Oxygen Saturation - - Inhaled Oxygen Concentration - - Weight 108.5 kg (239 lb 3.2 oz) 025 11:30 AM EDT Height - - Body Mass Index 36.37 06/19/2024 9:12 AM EST documented in this encounter Progress Notes * Taryn Johnson CRNP - 10/15/2024 11:51 AM EDT 38w No complaints. Baby is active. No contractions or bleeding. BP mildly elevated today. Urine dip with trace proteinuria. Return in 2 days for BP and urine dip. ASSESSMENT assessment with Non-stress Test completed on 10/15/2024 at 38weeks gestation for indication ofAMA heart baseline: 135 bpm Variability: Moderate Decelerations: absent Accelerations: present Contractions: None NST start time: 1421 (time stamp on NST) NST stop time: 1445 NST strip reviewed, interpreted, and approved by OB Taryn lofton CRNP . NST strip stored in clinic storage file * Luz Gray CMA - 10/15/2024 11:30 AM EDT [id number] Denies any concerns documented in this encounter Plan of Treatment Upcoming Encounters Date Type Department Care Team (Late st Contact Info) Description 10/17/2024 1:30 PM EDT Nurse Only Gynecology/Obstetrics [facility] [address] [place] [address] Gw, Nurse Obgyn Injection [address] [place] [address] 11/12/2024 11:30 AM EDT Telemedicine Gynecology/Obstetrics Nicole Osorio [address] [place] [address] Taryn Johnson CRNP [address] [place] [address] 12/04/2024 12:00 PM EDT Office Visit Gynecology/Obstetrics Nicole Osorio [address] [place] [address] Taryn Johnson CRNP [address] [place] [address] Health Maintenance Due Date Last Done Comments [...] Author Reminders Care Plan OB Reminders No Magot, Provider documented as of this encounter Medical Devices Not on filedocumented as of this encounter Procedures Procedure Name Priority Date/Time Associated Diagnosis Comments URINALYSIS OBSTETRICS, POINT OF CARE [facility] 10/15/2024 11:56 AM EDT documented in this encounter Results * (ABNORMAL) URINALYSIS OBSTETRICS, POINT OF CARE (10/15/2024 11:56 AM EDT) Color, Urine Yellow Light Yellow, Yellow 10/15/2024 12:15 PM EDT [facility] Clarity, Urine Clear Clear 10/15/2024 12:15 PM EDT [facility] Glucose, Urine Negative Negative mg/dL 10/15/2024 12:15 PM EDT [facility] [place] [facility] [facility] Bilirubin, Urine Negative Negative 10/15/2024 12:15 PM EDT [facility] [place] [facility] Ketone, Urine 15(A) Negative mg/dL 10/15/2024 12:15 PM EDT [facility] [place] [facility] [facility] Specific [place], Urine 1.020 1.003 - 1.030 10/15/2024 12:15 PM EDT [facility] [place] [facility] [facility] Blood, Urine Negative Negative 10/15/2024 12:15 PM EDT [facility] [place] [facility] pH, Urine 7.0 5.0, 5.5, 6.0, 6.5, 7.0, 7.5 units 10/15/2024 12:15 PM EDT [facility] [place] [facility] [facility] Protein, Urine Trace(A) Negative mg/dL 10/15/2024 12:15 PM EDT [facility] [place] [facility] Urobilinogen, Urine 0.2 0.2, 1.0 mg/dL 10/15/2024 12:15 PM EDT [facility] [place] [facility] [facility] Nitrite, Urine Negative Negative 10/15/2024 12:15 PM EDT [facility] [place] [facility] Esterase, Urine Small(A) Negative 10/15/2024 12:15 PM EDT [facility] Urine 10/15/2024 11:5 6 AM EDT 10/15/2024 12:14 PM EDT [facility] POINT OF CARE TE ST DOCKED DEVICE UNSOLICITED RESULTS Final Result Performing Organization Address City/State/[facility] [[email or web address]] Co de Phone Number [facility] [address] [facility] [place] [address] documented in this encounter Visit Diagnoses Diagnosis Supervision of high-risk , first trimester- Primary 8 weeks gestation of state, incidental Primigravida of advanced maternal age in first trimester Hypothyroidism affecting in first trimester History of Graves' disease Personal history of other endocrine, metabolic, and immunity disorders Obesity in , antepartum Obesity complicating , childbirth, or the puerperium, antepartum condition or complication At risk for complication of Primigravida of advanced maternal age in first trimester- Primary Hypothyroidism affecting in first trimester Obesity in , antepartum Obesity complicating , childbirth, or the puerperium, antepartum condition or complication Supervision of high risk in first trimester- Primary Unspecified high-risk 9 weeks gestation of state, incidental Multigravida of advanced maternal age in first trimester Family history of trisomy 13 Obesity in , antepartum Obesity complicating , childbirth, or the puerperium, antepartum condition or complication Hypothyroidism affecting in first trimester At risk for complication of Obesity in , antepartum- Primary Obesity complicating , childbirth, or the puerperium, antepartum condition or complication Multigravida of advanced maternal age in second trimester Encounter for anatomic survey 20 weeks gestation of state, incidental Hypothyroidism affecting in second trimester Marginal insertion of umbilical cord affecting management of mother High-risk in third trimester- Primary Postoperative hypothyroidism Postsurgical hypothyroidism Hypothyroidism affecting in third trimester Antepartum multigravida of advanced maternal age Obesity in , antepartum Obesity complicating , childbirth, or the puerperium, antepartum condition or complication At risk for complication of Family history of trisomy 13 Marginal insertion of umbilical cord affecting management of mother Multigravida of advanced maternal age in third trimester documented in this encounter Additional Health Concerns Active Problems Noted Date Diagnosed Date OB Reminders 04/08/2024 documented as of this encounter Care Teams Braiding Operator Relationship Specialty Start Date End Date Kelsey Vitale DO [address] [address] PCP - General Family Medicine 11/02/23 documented as of this encounter
--- OUTSIDE RECORDS SUMMARY | 2024-10-22 12:14 | External Medical Summary | Summary of Care ---
Author Name Unknown Organization [facility] Address [address] [facility] [address] Phone [phone] Care Team Providers Care [employer] Teacher Name Role Phone Kelsey Vitale DO Primary Care Provider [phone] Reason for Visit * Reason Comments Return Visit Encounter Details Date Type Department Care Team (Late st Contact Info) Description 10/06/2024 8:30 AM EDT Office Visit Gynecology/Obstetric s Nicole Osorio [address] [place] [address] Analilia ePrry CRNP [address] [place] [address] High-risk in third trimester*; Postoperative hypothyroidism; Hypothyroidism affecting in third trimester; Multigravida of advanced maternal age in third trimester; Obesity in , antepartum; At risk for complication of ; Family history of trisomy 13; Marginal insertion of umbilical cord affecting management of mother Allergies Active Allergy Reactions Criticality Noted Date Comments Sulfa Antibiotics Hives 08/13/2018 documented as of this encounter (statuses as of 10/06/2024) Medications 28-0.8 MG Oral Tablet Take by mouth. Active Levothyroxine Sodium 112 MCG Oral Tablet (Levoxyl)Indica tions:Hypothyro idism affecting in first trimester 1 tablet by mouth on Sunday, Sunday, Sunday, Sunday, Sunday; 2 tablets on / (at least 30 min prior to breakfast or other meds) 36 Tablet 6 4 Active documented as of this encounter (statuses as of 10/06/2024) Active Problems Problem Noted Date Diagnosed Date [...] first trimester of . Refer back to [facility] if this occurs. She should continue to have growth assessments with MFM while she is clinically hypothyroid. If patient experiences thyroid goiter or nodule during , we recommend that she be referred to endocrinology for evaluation and management. is not a contraindication to fine needle aspiration but should be handled at the discretion of the newspaper carrier. If hypothyroidism is poorly controlled, consider weekly NSTs at 32 weeks. For women with a history of treated Graves' disease, third trimester MFM ultrasound should be performed to evaluate for goiter. Please refer immediately back to [facility] for persistent tachycardia on office evaluation as this may also be a symptom of hyperthyroidism. Please check TSI/TRAb after 20 weeks and notify [facility] if positive by sending a message to the [facility] Advanced Practitioner Pool ([id number]). We will alert pediatrics to the need [...] first trimester of . Refer back to [facility] if this occurs. She should continue to have growth assessments with MFM while she is clinically hypothyroid. If patient experiences thyroid goiter or nodule during , we recommend that she be referred to endocrinology for evaluation and management. is not a contraindication to fine needle aspiration but should be handled at the discretion of the newspaper carrier. If hypothyroidism is poorly controlled, consider weekly NSTs at 32 weeks. For women with a history of treated Graves' disease, third trimester MFM ultrasound should be performed to evaluate for goiter. Please refer immediately back to [facility] for persistent tachycardia on office evaluation as this may also be a symptom of hyperthyroidism. Please check TSI/TRAb after 20 weeks and notify MF if positive by sending a message to the [facility] Advanced Practitioner Pool ([id number]). We will alert pediatrics to the need for possible follow-up. AMA (advanced maternal age) multigravida 35+ Overview (04/16/2024): Age 44YO at [facility] Patient desires NIPT - ordered by [facility]. Patient deferred genetic counseling referral at this [...] cffDNA screening, and testing was coordinated by MFM. Cell-free DNA (cffDNA) screening is a genetic [...] cffDNA screening, and testing was coordinated by [facility]. Cell-free DNA (cffDNA) screening is a genetic [...] increased risk of congenital/structural anomalies. RECOMMENDATIONS: Recommend [facility] anatomy ultrasound at 19-20 weeks gestation. As [...] as of this encounter (statuses as of 10/06/2024) Resolved Problems Problem Noted Date Diagnosed Date [...] positive by sending a message to the [facility] Advanced Practitioner Pool ([id number]). Abnormal mammogram 04/17/2022 Overview (04/17/2022): Subcentimeter focal asymmetry about 8/9 o'clock middle to posterior depth, right breast. Additional imaging is advised. No mammographic evidence of malignancy In the left breast. Further imaging right breast ordered documented as of this encounter (statuses as of 10/06/2024) Immunizations Name Administration Dates Next Due DTaP [...] money to get more. Never true 06/05/2024 Creighton Depression Scale Answer Date Recorded Creighton Depression Scale Total 3 09/18/2024 The thought [...] Sign Reading Time Taken Comments Blood Pressure 114/68 10/06/2024 8:23 AM EDT Pulse - - Temperature - - Respiratory Rate - - Oxygen Saturation - - Inhaled Oxygen Concentration - - Weight 107.5 kg (237 lb) 10/06/2024 8:23 AM EDT Height - - Body Mass Index 36.04 06/19/2024 9:12 AM EST documented in this encounter Progress Notes * Analilia Perry CRNP - 10/06/2024 8:33 AM EDT 36w5d Baby is active. No ctx, leaking, bleeding. Plans to use condoms . Agreeable to IOL in 39th week, scheduled. Start weekly NSTs at 38 weeks. 1 week NURYS. Lead Sharepoint Developer Documentation Provider requested kier tender. Name of kier tender: JAYSON Coon * Maria Del Carmen Seay LPN - 10/06/2024 8:24 AM EDT 36w5d Denies vaginal bleeding/rom + movement documented in this encounter Plan of Treatment Upcoming Encounters Date Type Department Care Team (Late st Contact Info) Description 10/15/2024 11:30 AM EDT Office Visit Gynecology/Obstetrics Irving[facility] Osorio [address] [place] [address] Taryn Johnson CRNP [address] [place] [address] Charlotte Osorio Stress Tests Omar [address] [place] [address] 11/12/2024 11:30 AM EDT Telemedicine Gynecology/Obstetrics [facility] Venegass [address] [place] [address] Taryn Johnson CRNP [address] [place] [address] 12/04/2024 12:00 PM EDT Office Visit Gynecology/Obstetrics [facility] Osorio [address] [place] [address] Taryn Johnson CRNP [address] [place] [address] Scheduled Orders Name Type Priority Associated Diagnoses Orde r Schedule GROUP B STREP CULTURE/PCR Lab Routine High-risk in third trimester Expected: 10/06/2024, Expires: 10/06/2025 Health Maintenance Due Date Last Done Comments [...] Not on filedocumented as of this encounter Visit Diagnoses Diagnosis Supervision of [...] Postsurgical hypothyroidism Hypothyroidism affecting in third trimester Multigravida of advanced maternal age in third trimester Obesity in , antepartum Obesity complicating , childbirth, or the puerperium, antepartum condition or complication At risk for complication of Family history of trisomy 13 Marginal insertion of umbilical cord affecting management of mother documented in this encounter Additional Health Concerns Active Problems Noted Date Diagnosed Date OB Reminders 04/08/2024 documented as of this encounter Care Teams [employer] Auto [employer] Teacher Relationship Specialty Start Date End Date Kelsey Vitale DO [address] [address] PCP - General Family Medicine 11/02/23 documented as of this encounter
--- OUTSIDE RECORDS SUMMARY | 2024-10-22 12:14 | External Medical Summary | Summary of Care ---
Author Name Unknown Organization [facility] Address [address] [address] Phone [phone] Care Team Providers Care Clinical Pharmacy Specialist Name Role Phone Kelsey Vitale DO Primary Care Provider [phone] Reason for Visit * Reason Comments Blood Pressure Check Encounter Details Date Type Department Care Team (Late st Contact Info) Description 10/17/2024 1:30 PM EDT Nurse Only Gynecology/Obstetrics [facility] [address] [place] [address] Gw, Nurse Obgyn Injection [address] [place] [address] Blood Pressure Check Allergies Active Allergy Reactions Criticality Noted Date Comments Sulfa Antibiotics Hives 08/13/2018 documented as of this encounter (statuses as of 10/17/2024) Medications 28-0.8 MG Oral Tablet Take by mouth. Active Levothyroxine Sodium 112 MCG Oral Tablet (Levoxyl)Indica tions:Hypothyro idism affecting in first trimester 1 tablet by mouth on Sunday, Sunday, Sunday, Sunday, Sunday; 2 tablets on / (at least 30 min prior to breakfast or other meds) 36 Tablet 6 4 Active documented as of this encounter (statuses as of 10/17/2024) Active Problems Problem Noted Date Diagnosed Date [...] be handled at the discretion of the stone and concrete washer. If hypothyroidism is poorly controlled, consider weekly NSTs at 32 weeks. For women with a history of treated Graves' disease, third trimester MFM ultrasound should be performed to evaluate for goiter. Please refer immediately back to [facility] for persistent tachycardia on office evaluation as this may also be a symptom of hyperthyroidism. Please check TSI/TRAb after 20 weeks and notify MF if positive by sending a message to the [facility] Advanced Practitioner Pool ([id number]). We will alert pediatrics to the need [...] first trimester of . Refer back to [facility] if this occurs. She should continue to have growth assessments with MF while she is clinically hypothyroid. If patient experiences thyroid goiter or nodule during , we recommend that she be referred to endocrinology for evaluation and management. is not a contraindication to fine needle aspiration but should be handled at the discretion of the stone and concrete washer. If hypothyroidism is poorly controlled, consider weekly NSTs at 32 weeks. For women with a history of treated Graves' disease, third trimester MFM ultrasound should be performed to evaluate for goiter. Please refer immediately back to [facility] for persistent tachycardia on office evaluation as this may also be a symptom of hyperthyroidism. Please check TSI/TRAb after 20 weeks and notify MFM if positive by sending a message to the [facility] Advanced Practitioner Pool ([id number]). We will alert pediatrics to the need for possible follow-up. AMA (advanced maternal age) multigravida 35+ Overview (04/16/2024): Age 44YO at [facility] Patient desires NIPT - ordered by [facility]. Patient deferred genetic counseling referral at [...] cffDNA screening, and testing was coordinated by [facility]. Cell-free DNA (cffDNA) screening is a [...] cffDNA screening, and testing was coordinated by [facility]. Cell-free DNA (cffDNA) screening is a [...] As patient is 40 or greater at [facility]: Recommend ultrasound for growth 28-30 weeks gestation. [...] as of this encounter (statuses as of 10/17/2024) Resolved Problems Problem Noted Date Diagnosed Date [...] positive by sending a message to the [facility] Advanced Practitioner Pool ([id number]). Abnormal mammogram 04/17/2022 Overview (04/17/2022): Subcentimeter focal asymmetry about 8/9 o'clock middle to posterior depth, right breast. Additional imaging is advised. No mammographic evidence of malignancy In the left breast. Further imaging right breast ordered documented as of this encounter (statuses as of 10/17/2024) Immunizations Name Administration Dates Next Due DTaP [...] money to get more. Never true 06/05/2024 Jean Depression Scale Answer Date Recorded Jean Depression Scale Total 3 09/18/2024 The thought [...] Sign Reading Time Taken Comments Blood Pressure 124/80 10/17/2024 1:35 PM EDT Pulse - - Temperature - - Respiratory Rate - - Oxygen Saturation - - Inhaled Oxygen Concentration - - Weight - - Height - - Body Mass Index - - documented in this encounter Nursing Notes * Luz Gray CMA - 10/17/2024 1:36 PM EDT Patient here for BP check. In office 124/80. Denies vision changes. States she has a headache but more in her neck from how she slept. documented in this encounter Plan of Treatment Upcoming Encounters Date Type Department Care Team (Late st Contact Info) Description 11/12/2024 11:30 AM EDT Telemedicine Gynecology/Obstetrics Nicole Osorio [address] [place] [address] Taryn Johnson CRNP [address] [place] [address] 12/04/2024 12:00 PM EDT Office Visit Gynecology/Obstetrics Nicole Osorio [address] [place] [address] Taryn Johnson CRNP [address] [place] [address] Health Maintenance Due Date Last Done Comments [...] Diagnosis Comments URINALYSIS OBSTETRICS, POINT OF CARE [place] 10/17/2024 1:31 PM EDT documented in this encounter Results * (ABNORMAL) URINALYSIS OBSTETRICS, POINT OF CARE (10/17/2024 1:31 PM EDT) Color, Urine Yellow Light Yellow, Yellow 10/17/2024 1:34 PM EDT [facility] Clarity, Urine Clear Clear 10/17/2024 1:34 PM EDT [facility] Glucose, Urine Negative Negative mg/dL 10/17/2024 1:34 PM EDT [facility] Bilirubin, Urine Negative Negative 10/17/2024 1:34 PM EDT [facility] Ketone, Urine 15(A) Negative mg/dL 10/17/2024 1:34 PM EDT [facility] Specific [place]man, Urine >=1.030 1.003 - 1.030 10/17/2024 1:34 PM EDT [facility] Blood, Urine Negative Negative 10/17/2024 1:34 PM EDT [facility] pH, Urine 6.0 5.0, 5.5, 6.0, 6.5, 7.0, 7.5 units 10/17/2024 1:34 PM EDT [facility] Protein, Urine Trace(A) Negative mg/dL 10/17/2024 1:34 PM EDT [facility] Urobilinogen, Urine 0.2 0.2, 1.0 mg/dL 10/17/2024 1:34 PM EDT [facility] Nitrite, Urine Negative Negative 10/17/2024 1:34 PM EDT [facility] Esterase, Urine Trace(A) Negative 10/17/2024 1:34 PM EDT [facility] Urine 10/17/2024 1:31 PM EDT 10/17/2024 1:34 PM EDT us Nurse Obgyn Injection Gw LAB POINT OF CA RE TEST DOCKED DEVICE UNSOLICITED RESULTS Final Result [facility] [address] [place] [address] documented in this encounter Additional Health Concerns Active Problems Noted Date Diagnosed Date OB Reminders 04/08/2024 documented as of this encounter Care Teams Clinical Pharmacy Specialist Relationship Specialty Start Date End Date Kelsey Vitale DO [address] [address] PCP - General Family Medicine 11/02/23 documented as of this encounter
--- OUTSIDE RECORDS SUMMARY | 2024-10-22 12:14 | External Medical Summary ---
Author Name Unknown Address Unknown Organization [facility] [place] [address] Laboratory Report Ordering Provider Test Date Status MAYRA DARNELL 10/15/2024 11:56:00 Final Observation Date Value Abnormality Reference (Units ) Status Color of Urine by Auto 10/15/2024 11:56:00 Yellow Light Yellow, Yellow Final Clarity, Urine 10/15/2024 11:56:00 Clear Clear Final Glucose [Mass/volume] in Urine by Automated test strip 10/15/2024 11:56:00 Negative Negative (mg/dL) Final Bilirubin.total [Presence] in Urine by Automated test strip 10/15/2024 11:56:00 Negative Negative Final Ketones [Mass/volume] in Urine by Automated test strip 10/15/2024 11:56:00 15 Abnormal Negative (mg/dL) Final Specific gravity, Urine 10/15/2024 11:56:00 1.020 1.003-1.030 Final Hemoglobin [Presence] in Urine by Automated test strip 10/15/2024 11:56:00 Negative Negative Final pH, Urine 10/15/2024 11:56:00 7.0 5.0, 5.5, 6.0, 6.5, 7.0, 7.5 (units) Final Protein [Mass/volume] in Urine by Automated test strip 10/15/2024 11:56:00 Trace Abnormal Negative (mg/dL) Final Urobilinogen, Urine 10/15/2024 11:56:00 0.2 0.2, 1.0 (mg/dL) Final Nitrite [Presence] in Urine by Automated test strip 10/15/2024 11:56:00 Negative Negative Final Leukocyte esterase [Presence] in Urine by Automated test strip 10/15/2024 11:56:00 Small Abnormal Negative Final Performing Location [facility] [address] [place] [address]
--- OUTSIDE RECORDS SUMMARY | 2024-10-22 12:15 | External Medical Summary | Summary of Care ---
Author Name Unknown Organization [facility] Address [address] [place] [address] Phone [phone] Care Team Providers Care Resolution Analyst Name Role Phone IamKelsey prado Marlys MENDEZ Primary Care Provider [phone] Reason for Visit * Evaluate & Treat - Unlimited Visits (Within 10 days (routine)) - Authorized Specialty Diagnoses / Procedures Referred By Contnawaf t Referred To Contact Obstetrics/Gynecology / Maternal Medicine Diagnoses High-risk in first trimester Primigravida of advanced maternal age in first trimester Obesity in , antepartum Hypothyroidism affecting in first trimester Analilia Perry CRNP [address] [facility] [place] [address] Phone: tel: fax: Referral ID Status Reason Start Date Expiration Date Visits Requested Visits Authorized [id number] Authorized Specialty Services Required 09/26/2023 09/26/[phone] Encounter Details Date Type Department Care Team (Late st Contact Info) Description 08/21/2024 8:45 AM EST Office Visit Avionics Technician Obstetrics Maternal Medicine, Omar Osorio [address] [place] [address] Verna Valencia, DO [address] [place] [address] Obesity in , antepartum*; Multigravida of advanced maternal age in second trimester; Marginal insertion of umbilical cord affecting management of mother; 30 weeks gestation of ; Ultrasound for screening for growth restriction Allergies Active Allergy Reactions Criticality Noted Date Comments Sulfa Antibiotics Hives 08/13/2018 documented as of this encounter (statuses as of 08/21/2024) Medications 28-0.8 MG Oral Tablet Take by mouth. Active Levothyroxine Sodium 112 MCG Oral Tablet (Levoxyl)Indica tions:Hypothyro idism affecting in first trimester 1 tablet by mouth on Sunday, Sunday, Sunday, Sunday, Sunday; 2 tablets on / (at least 30 min prior to breakfast or other meds) 36 Tablet 6 4 Active documented as of this encounter (statuses as of 08/21/2024) Active Problems Problem Noted Date Diagnosed Date [...] first trimester of . Refer back to [facility] if this occurs. She should continue to have growth assessments with MFM while she is clinically hypothyroid. If patient experiences thyroid goiter or nodule during , we recommend that she be referred to endocrinology for evaluation and management. is not a contraindication to fine needle aspiration but should be handled at the discretion of the microsoft dynamics ax consultant. If hypothyroidism is poorly controlled, consider weekly NSTs at 32 weeks. For women with a history of treated Graves' disease, third trimester MFM ultrasound should be performed to evaluate for goiter. Please refer immediately back to [facility] for persistent tachycardia on office evaluation as this may also be a symptom of hyperthyroidism. Please check TSI/TRAb after 20 weeks and notify [facility] if positive by sending a message to the [facility] Advanced Practitioner Pool ([id number]). We will alert pediatrics to the need [...] first trimester of . Refer back to [facility] if this occurs. She should continue to have growth assessments with MFM while she is clinically hypothyroid. If patient experiences thyroid goiter or nodule during , we recommend that she be referred to endocrinology for evaluation and management. is not a contraindication to fine needle aspiration but should be handled at the discretion of the microsoft dynamics ax consultant. If hypothyroidism is poorly controlled, consider weekly [...] positive by sending a message to the [facility] Advanced Practitioner Pool ([id number]). We will alert pediatrics to the need for possible follow-up. AMA (advanced maternal age) multigravida 35+ Overview (04/16/2024): Age 44YO at [facility] Patient desires NIPT - ordered by [facility]. Patient deferred genetic counseling referral at [...] cffDNA screening, and testing was coordinated by [facility]. Cell-free DNA (cffDNA) screening is a [...] cffDNA screening, and testing was coordinated by [facility]. Cell-free DNA (cffDNA) screening is a [...] as of this encounter (statuses as of 08/21/2024) Resolved Problems Problem Noted Date Diagnosed Date [...] positive by sending a message to the [facility] Advanced Practitioner Pool ([id number]). Abnormal mammogram 04/17/2022 3 Overview (04/17/2022): Subcentimeter focal asymmetry about 8/9 o'clock middle to posterior depth, right breast. Additional imaging is advised. No mammographic evidence of malignancy In the left breast. Further imaging right breast ordered documented as of this encounter (statuses as of 08/21/2024) Immunizations Name Administration Dates Next Due DTaP Dipth/Tet/Acell Pertussis (Infanrix), Peds 04/24/1986,10/18/1983,1982,08/15,1982 HIB PRP-T, 4 Dose, PF, IM (H iberix, ActHib) 10/18/1983,1982,1982,06/16 Hepatitis B, 0-19 yrs 07/12/1998,01/13/1998,05/0 12/1997 IPV - Polio Virus Vaccine (Inact) 1983,1982,1982,06/16 [...] money to get more. Never true 06/05/2024 Cinebar Depression Scale Answer Date Recorded Cinebar Depression Scale Total 3 03/24/2024 The thought of harming myself has occurred to me . Never 03/24/2024 Childcare Answer Date Recorded Do you feel [...] No 06/05/2024 Does the household have a [facility] source of income? (Household - for ages [...] ages 0-17 years) Not on file 06/05/2024 Estimated Date of Delivery Comme nts [...] on file documented as of this encounter Progress Notes * Verna Valencia, - 08/21/2024 10:10 AM EST Brook presented today at 30w1d for an ultrasound for the following indications: Obesity in , antepartum Multigravida of advanced maternal age in second trimester Marginal insertion of umbilical cord affecting management of mother 30 weeks gestation of Ultrasound for screening for growth restriction Ultrasound summary: Patient presented at 30w 1d for growth assessment. Normal growth with EFW 1502 g at 34%ile. Normal CAROL at 12 cm. Cephalic presentation. I reviewed the ultrasound images. Brook was given the opportunity to meet with me if she had anyquestions. Please refer to the ultrasound report for additional details about today's ultrasound examination. RECOMMENDATIONS: Follow up with MFM for ultrasound as clinically indicated. Weekly NSTs at 38 weeks. See prior formal MFM consultation note. Thank you for allowing us to participate in the care of this patient. Please call with any questions. Verna Valencia DO 08/21/2024 10:10 AM documented in this encounter Plan of Treatment Upcoming Encounters Date Type Department Care Team (Late st Contact Info) Description 09/05/2024 8:45 AM EST Office Visit Gynecology/Obstetrics [facility] [address] [place] [address] Taryn Johnson CRNP [address] [place] [address] Health Maintenance Due Date Last Done Comments [...] of umbilical cord affecting management of mother Obesity in , antepartum- Primary Obesity complicating , childbirth, or the puerperium, antepartum condition or complication Multigravida of advanced maternal age in second trimester Marginal insertion of umbilical cord affecting management of mother 30 weeks gestation of state, incidental Ultrasound for screening for growth restriction screening for growth retardation using ultrasonics documented in this encounter Additional Health Concerns Active Problems Noted Date Diagnosed Date OB Reminders 04/08/2024 documented as of this encounter Care Teams Resolution Analyst Relationship Specialty Start Date End Date Kelsey Vitale DO [address] [place] [address] PCP - General Family Medicine 11/02/23 documented as of this encounter
--- OUTSIDE RECORDS SUMMARY | 2024-10-22 12:15 | External Medical Summary | Summary of Care ---
Author Name Unknown Organization [facility] Address [address] [facility] [place] [address] Phone [phone] Care Team Providers Care Resp Ther Name Role Phone Kelsey Vitale DO Primary Care Provider [phone] Encounter Details Date Type Department Care Team (Late st Contact Info) Description 08/19/2024 Population Health External Data Unspecified Department Allergies Active Allergy Reactions Criticality Noted Date Comments Sulfa Antibiotics Hives 08/13/2018 documented as of this encounter (statuses as of 08/19/2024) Medications 28-0.8 MG Oral Tablet Take by mouth. Active Levothyroxine Sodium 112 MCG Oral Tablet (Levoxyl)Indica tions:Hypothyro idism affecting in first trimester 1 tablet by mouth on Sunday, Sunday, Sunday, Sunday, Sunday; 2 tablets on / (at least 30 min prior to breakfast or other meds) 36 Tablet 6 4 Active documented as of this encounter (statuses as of 08/19/2024) Active Problems Problem Noted Date Diagnosed Date [...] be handled at the discretion of the radiology therapist. If hypothyroidism is poorly controlled, consider weekly [...] positive by sending a message to the [facility] Advanced Practitioner Pool ([id number]). We will alert pediatrics to the need [...] first trimester of . Refer back to [facility] if this occurs. She should continue to have growth assessments with MFM while she is clinically hypothyroid. If patient experiences thyroid goiter or nodule during , we recommend that she be referred to endocrinology for evaluation and management. is not a contraindication to fine needle aspiration but should be handled at the discretion of the radiology therapist. If hypothyroidism is poorly controlled, consider weekly NSTs at 32 weeks. For women with a history of treated Graves' disease, third trimester MFM ultrasound should be performed to evaluate for goiter. Please refer immediately back to M for persistent tachycardia on office evaluation as this may also be a symptom of hyperthyroidism. Please check TSI/TRAb after 20 weeks and notify MFM if positive by sending a message to the [facility] Advanced Practitioner Pool ([id number]). We will alert pediatrics to the need for possible follow-up. AMA (advanced maternal age) multigravida 35+ Overview (04/16/2024): Age 44YO at [facility] Patient desires NIPT - ordered by [facility]. Patient deferred genetic counseling referral at [...] cffDNA screening, and testing was coordinated by [facility]. Cell-free DNA (cffDNA) screening is a [...] cffDNA screening, and testing was coordinated by [facility]. Cell-free DNA (cffDNA) screening is a [...] increased risk of congenital/structural anomalies. RECOMMENDATIONS: Recommend [facility] anatomy ultrasound at 19-20 weeks gestation. As [...] as of this encounter (statuses as of 08/19/2024) Resolved Problems Problem Noted Date Diagnosed Date Resolved Date Maternal care for (suspected ) chromosomal abnormality in fetus, trisomy 13, fetus 1 10/31/2023 03/24/2024 Overview (10/31/2023): Qnatal positive for Trisomy 13 in 10/2023 -- pt had miscarriage History of Graves' disease 10/01/2023 0 03/24/2024 Overview (10/03/2023): History of Graves disease - S/P partial thyroidectomy Per [facility]: Please check TSI/TRAb after 20 weeks and notify [facility] if positive by sending a message to the [facility] Advanced Practitioner Pool ([id number]). Abnormal mammogram 04/17/2022 3 Overview (04/17/2022): Subcentimeter focal asymmetry about 8/9 o'clock middle to posterior depth, right breast. Additional imaging is advised. No mammographic evidence of malignancy In the left breast. Further imaging right breast ordered documented as of this encounter (statuses as of 08/19/2024) Immunizations Name Administration Dates Next Due DTaP [...] money to get more. Never true 06/05/2024 [place] Depression Scale Answer Date Recorded [place] Depression Scale Total 3 03/24/2024 The thought [...] on file documented as of this encounter Plan of Treatment Upcoming Encounters Date Type Department Care Team (Late st Contact Info) Description 08/21/2024 8:45 AM EST Imaging Maternal Medicine Imaging, [facility] [address] [facility] [facility] [place] [id number] 08/21/2024 8:45 AM EST Office Visit Wall Taper Helper Obstetrics Maternal Medicine, [facility] [address] [facility] [place] [address] Verna Valencia, DO [address] [place] [address] 08/21/2024 10:15 AM EST Office Visit Gynecology/Obstetrics [facility] [address] [place] [address] Taryn Johnson CRNP [address] [place] [address] Health Maintenance Due Date Last Done Comments [...] documented as of this encounter Care Teams Resp Ther Relationship Specialty Start Date End Date Kelsey Vitale DO [address] [place] [address] PCP - General Family Medicine 11/02/23 documented as of this encounter
--- OUTSIDE RECORDS SUMMARY | 2024-10-22 12:15 | External Medical Summary ---
Author Name Unknown Address Unknown Organization K01:[facility] [place] [facility] [address] [place] [address] Laboratory Report Ordering Provider Test Date Status ANDRA ZENG 10/06/2024 08:37:19 Final Observation Date Value Abnormality Reference (Units ) Status Streptococcus agalactiae DNA [Presence] in Specimen by ADRIAN with probe detection 10/06/2024 08:37:19 Negative Negative Final No Group B Streptococcus det ected by culture-enhanced PCR (amplified probe). GBS GBSCT - [facility] 10/06/2024 08:37:19 0.0 Final GBS SPCCT - [facility] 10/06/2024 08:37:19 31.1 Final Performing Location [facility] - [address] [place] [address]
--- OUTSIDE RECORDS SUMMARY | 2024-10-22 12:15 | External Medical Summary | Summary of Care ---
Author Name Unknown Organization [facility] Address [address] [facility] [place] [address] Phone [phone] Care Team Providers Care Paper Sales Representative Name Role Phone IamKelsey prado Primary Care Provider [phone] Encounter Details Date Type Department Care Team (Late st Contact Info) Description 05/12/2024 Telephone Gynecology/Obstetrics [facility] [address] [place] [address] Miguel A Salomon MD [address] [place] [address] Allergies Active Allergy Reactions Criticality Noted Date Comments Sulfa Antibiotics Hives 08/13/2018 documented as of this encounter (statuses as of 08/11/2024) Medications 28-0.8 MG Oral Tablet Take by mouth. Active Levothyroxine Sodium 112 MCG Oral Tablet (Levoxyl)Indica tions:Hypothyro idism affecting in first trimester 1 tablet by mouth on Sunday, Sunday, Sunday, Sunday, Sunday; 2 tablets on /Th (at least 30 min prior to breakfast or other meds) 36 Tablet 6 4 Active documented as of this encounter (statuses as of 08/11/2024) Active Problems Problem Noted Date Diagnosed Date [...] be handled at the discretion of the soaking room operator. If hypothyroidism is poorly controlled, consider weekly [...] positive by sending a message to the [facility] Advanced Practitioner Pool ([id number]). We will alert pediatrics to the need [...] first trimester of . Refer back to [facility] if this occurs. She should continue to have growth assessments with MFM while she is clinically hypothyroid. If patient experiences thyroid goiter or nodule during , we recommend that she be referred to endocrinology for evaluation and management. is not a contraindication to fine needle aspiration but should be handled at the discretion of the soaking room operator. If hypothyroidism is poorly controlled, consider weekly NSTs at 32 weeks. For women with a history of treated Graves' disease, third trimester MFM ultrasound should be performed to evaluate for goiter. Please refer immediately back to [facility] for persistent tachycardia on office evaluation as this may also be a symptom of hyperthyroidism. Please check TSI/TRAb after 20 weeks and notify MFM if positive by sending a message to the [facility] Advanced Practitioner Pool ([id number]). We will alert pediatrics to the need for possible follow-up. AMA (advanced maternal age) multigravida 35+ Overview (04/16/2024): Age 44YO at [facility] Patient desires NIPT - ordered by [facility]. Patient deferred genetic counseling referral at this [...] cffDNA screening, and testing was coordinated by [facility]. Cell-free DNA (cffDNA) screening is a genetic [...] cffDNA screening, and testing was coordinated by [facility]. Cell-free DNA (cffDNA) screening is a genetic [...] increased risk of congenital/structural anomalies. RECOMMENDATIONS: Recommend [facility] anatomy ultrasound at 19-20 weeks gestation. As [...] as of this encounter (statuses as of 08/11/2024) Resolved Problems Problem Noted Date Diagnosed Date [...] positive by sending a message to the [facility] Advanced Practitioner Pool ([id number]). Abnormal mammogram 04/17/2022 3 Overview (04/17/2022): Subcentimeter focal asymmetry about 8/9 o'clock middle to posterior depth, right breast. Additional imaging is advised. No mammographic evidence of malignancy In the left breast. Further imaging right breast ordered documented as of this encounter (statuses as of 08/11/2024) Immunizations Name Administration Dates Next Due DTaP Dipth/Tet/Acell Pertussis (Infanrix), Peds 04/24/1986,10/18/1983,1982,08/15,1982 HIB PRP-T, 4 Dose, PF, IM (H iberix, ActHib) 10/18/1983,1982,1982,06/16 Hepatitis B, 0-19 yrs 07/12/1998,01/13/1998,0512/1997 IPV - Polio Virus Vaccine (Inact) 1983,1982,1982,06/16 MMR - Measles/Mumps/Rubella Vaccine 12/02/1997,1 1982 Meningococcal Conjugate Vacc ine (Menactra/Menveo) 07/30/2000 Seasonal Influenza, PF, 6 M & above, IM , (FluLaval or Fluzone) 04/21/2022,04/19/2021,04/15/2020,08/18 TDAP, Age 7 and older, IM (Adacel) 01/01/2014 documented as of this encounter Social History Tobacco Use Types Packs/Day Years Used Date Smoking Tobacco: Former Cigarettes 0.3 5 2 008 - 2012 Passive Smoke Exposure: Never Smokeless Tobacco: Never [...] money to get more. Never true 06/05/2024 [place] Depression Scale Answer Date Recorded [place] Depression Scale Total 3 03/24/2024 The thought [...] encounter Miscellaneous Notes * Telephone Encounter - Heaven Ching LPN - 05/12/2024 12:24 PM EDT Spoke with pt she verbalized understanding. Please schedule pt for US in 2 weeks with her 05/22 appt * Telephone Encounter - Miguel A Salomon MD - 05/12/2024 12:18 PM EDT Should call if bleeding gets worse Pelvic rest Recommend to repeat US in 2 weeks Thanks * Telephone Encounter - Heaven Ching LPN - 05/12/2024 9:38 AM EDT I received report form [facility]. Pt went to er over the weekend for brown discharge. US Report Subchorionic bleed measuring 0.6 x 0.6 x 1.1 cm HR of 141 bpm. Report also showed echogenic debris seen near the internal os possible amniotic fluid sludge. Pt also had bacteria in urine and possible bv, yeast infection and was prescribed keflex 500mg every 8 hrs for 7 days and metronidazole 250mg tid for 7 days. Please review and advise * Telephone Encounter - Heaven Ching LPN - 05/12/2024 8:19 AM EDT Pt called in with going to ER in [place] over the weekend for brown discharge. Pt was toldjessy has a subchorionic hematoma and sludge in her uterus along with bacteria in her urine she was put on 2 abx and was told to call us right away on mon. I told pt that she needs to sign a record release from and I gave pt our fax number to have records faxed. I told pt once we receive these we will discuss with hospital admissions clerk provider for recommendations. Pt said she was going to call them right away documented in this encounter Plan of Treatment Upcoming Encounters Date Type Department Care Team (Late st Contact Info) Description 08/21/2024 8:45 AM EST Imaging Maternal Medicine Imaging, [facility] [address] [place] [phone] 08/21/2024 10:15 AM EST Office Visit Gynecology/Obstetrics Nicole Osorio [address] [place] [address] Taryn Johnson CRNP [address] [place] [address] Health Maintenance Due Date Last Done Comments [...] Not on filedocumented as of this encounter Results * US PREG LIMITED 1 OR MORE FETUSES (05/22/2024 3:39 PM EDT) Anatomical Region Laterality Modality Pelvis, Body Ultrasound 05/22/2024 4:04 PM EDT Impressions 05/22/2024 4:02 PM EDT IMPRESSION 1. Normal heart rate. 2. No subchorionic hemorrhage. Narrative 05/22/2024 4:02 PM EDT EXAM US PREG LIMITED 1 OR MORE FETUSES - 05/22/2024 3:39 pm HISTORY Subchorionic bleed COMPARISON 04/18/2024 TECHNIQUE Sonographic examination performed. FINDINGS : Nesbitt Presentation: Breech heart rate: 154 bpm Placenta: Posterior No subchorionic hemorrhage visualized. Procedure Note Olegario Carter MD - 05/22/2024 EXAM US PREG LIMITED 1 OR MORE FETUSES - 05/22/2024 3:39 pm HISTORY Subchorionic bleed COMPARISON 04/18/2024 TECHNIQUE Sonographic examination performed. FINDINGS : Nesbitt Presentation: Breech heart rate: 154 bpm Placenta: Posterior No subchorionic hemorrhage visualized. IMPRESSION IMPRESSION 1. Normal heart rate. 2. No subchorionic hemorrhage. us Miguel A Resendiz MD RAD ULTRASOUND Final Re sult documented in this encounter Visit Diagnoses Diagnosis [...] first trimester At risk for complication of Vaginal bleeding in - Primary Unspecified antepartum hemorrhage, unspecified as to episode of care Vaginal bleeding in Unspecified antepartum hemorrhage, unspecified as to episode of care Obesity in , antepartum- Primary Obesity complicating [...] documented as of this encounter Care Teams Paper Sales Representative Relationship Specialty Start Date End Date Kelsey Vitale DO [address] [place] [address] PCP - General Family Medicine 11/02/23 documented as of this encounter
--- OUTSIDE RECORDS SUMMARY | 2024-10-22 12:15 | External Medical Summary | Summary of Care ---
Author Name Unknown Organization [facility] Address [address] [address] [address] Phone [phone] Care Team Providers Care Carburizing Furnace Operator Name Role Phone Kelsey Vitale DO Primary Care Provider [phone] Reason for Visit * Reason Comments Return Visit Encounter Details Date Type Department Care Team (Late st Contact Info) Description 09/05/2024 8:45 AM EST Office Visit Gynecology/Obstetric s [facility] Osorio [address] [place] [address] Taryn Johnson CRNP [address] [place] [address] High-risk in third trimester*; Postoperative hypothyroidism; Hypothyroidism affecting in third trimester; Antepartum multigravida of advanced maternal age; Obesity in , antepartum; At risk for complication of ; Family history of trisomy 13; Marginal insertion of umbilical cord affecting management of mother Allergies Active Allergy Reactions Criticality Noted Date Comments Sulfa Antibiotics Hives 08/13/2018 documented as of this encounter (statuses as of 09/05/2024) Medications 28-0.8 MG Oral Tablet Take by mouth. Active Levothyroxine Sodium 112 MCG Oral Tablet (Levoxyl)Indica tions:Hypothyro idism affecting in first trimester 1 tablet by mouth on Sunday, Sunday, Sunday, Sunday, Sunday; 2 tablets on / (at least 30 min prior to breakfast or other meds) 36 Tablet 6 4 Active documented as of this encounter (statuses as of 09/05/2024) Active Problems Problem Noted Date Diagnosed Date [...] trimester of . Refer back to [facility] if this occurs. She should continue to have growth assessments with [facility] while she is clinically hypothyroid. If patient experiences thyroid goiter or nodule during , we recommend that she be referred to endocrinology for evaluation and management. is not a contraindication to fine needle aspiration but should be handled at the discretion of the software quality tester. If hypothyroidism is poorly controlled, consider weekly NSTs at 32 weeks. For women with a history of treated Graves' disease, third trimester MF ultrasound should be performed to evaluate for goiter. Please refer immediately back to [facility] for persistent tachycardia on office evaluation as this may also be a symptom of hyperthyroidism. Please check TSI/TRAb after 20 weeks and notify [facility] if positive by sending a message to the [facility] Advanced Practitioner Pool ([id number]). We will alert pediatrics to the need [...] trimester of . Refer back to [facility] if this occurs. She should continue to have growth assessments with MFM while she is clinically hypothyroid. If patient experiences thyroid goiter or nodule during , we recommend that she be referred to endocrinology for evaluation and management. is not a contraindication to fine needle aspiration but should be handled at the discretion of the software quality tester. If hypothyroidism is poorly controlled, consider weekly NSTs at 32 weeks. For women with a history of treated Graves' disease, third trimester MFM ultrasound should be performed to evaluate for goiter. Please refer immediately back to [facility] for persistent tachycardia on office evaluation as this may also be a symptom of hyperthyroidism. Please check TSI/TRAb after 20 weeks and notify MFM if positive by sending a message to the [facility] Advanced Practitioner Pool ([id number]). We will alert pediatrics to the need for possible follow-up. AMA (advanced maternal age) multigravida 35+ Overview (04/16/2024): Age 44YO at [facility] Patient desires NIPT - ordered by [facility]. Patient deferred genetic counseling referral [...] screening, and testing was coordinated by [facility]. Cell-free DNA (cffDNA) screening is [...] screening, and testing was coordinated by [facility]. Cell-free DNA (cffDNA) screening is [...] as of this encounter (statuses as of 09/05/2024) Resolved Problems Problem Noted Date Diagnosed Date [...] by sending a message to the [facility] Advanced Practitioner Pool ([id number]). Abnormal mammogram 04/17/2022 Overview (04/17/2022): Subcentimeter focal asymmetry about 8/9 o'clock middle to posterior depth, right breast. Additional imaging is advised. No mammographic evidence of malignancy In the left breast. Further imaging right breast ordered documented as of this encounter (statuses as of 09/05/2024) Immunizations Name Administration Dates Next Due DTaP [...] money to get more. Never true 06/05/2024 [place] Depression Scale Answer Date Recorded [place] Depression Scale Total 3 03/24/2024 The thought [...] Sign Reading Time Taken Comments Blood Pressure 122/68 09/05/2024 8:41 AM EST Pulse - - Temperature - - Respiratory Rate - - Oxygen Saturation - - Inhaled Oxygen Concentration - - Weight 106 kg (233 lb 9.6 oz) 09/05/2024 8:41 AM EST Height - - Body Mass Index 35.52 06/19/2024 9:12 AM EST documented in this encounter Progress Notes * Taryn Johnson CRNP - 09/05/2024 8:56 AM EST 32w2d C/o BLE edema, improves overnight. Suggested compression stockings. No other concerns. Planning to breastfeed. Discussed contraceptive options, planning condoms. JAYSON Shultz * Luz Gray CMA - 09/05/2024 8:41 AM EST 32w2d Swelling in both lower legs, more so after a long day. documented in this encounter Plan of Treatment Upcoming Encounters Date Type Department Care Team (Late st Contact Info) Description 09/18/2024 9:15 AM EST Office Visit Gynecology/Obstetrics [facility] [address] [place] [address] Backer, JAYSON Kay [address] [place] [address] Health Maintenance Due Date Last Done Comments [...] Author Reminders Care Plan OB Reminders No Soraidahart, Provider documented as of this encounter Medical [...] documented as of this encounter Care Teams Carburizing Furnace Operator Relationship Specialty Start Date End Date Kelsey Vitale DO [address] [place] [address] PCP - General Family Medicine 11/02/23 documented as of this encounter
--- OUTSIDE RECORDS SUMMARY | 2024-10-22 12:15 | External Medical Summary | Summary of Care ---
Author Name Unknown Organization [facility] Address [address] [facility] [place] [address] Phone [phone] Care Team Providers Care Veneer Jointer Operator Name Role Phone IamEricmanuel Frankel DO Primary Care Provider [phone] Encounter Details Date Type Department Care Team (Late st Contact Info) Description 08/20/2024 Telephone Gynecology/Obstetrics [facility] [address] [place] [address] Cassandra Haddad MD [address] [place] [address] Allergies Active Allergy Reactions Criticality Noted Date Comments Sulfa Antibiotics Hives 08/13/2018 documented as of this encounter (statuses as of 08/20/2024) Medications 28-0.8 MG Oral Tablet Take by mouth. Active Levothyroxine Sodium 112 MCG Oral Tablet (Levoxyl)Indica tions:Hypothyro idism affecting in first trimester 1 tablet by mouth on Sunday, Sunday, Sunday, Sunday, Sunday; 2 tablets on /Th (at least 30 min prior to breakfast or other meds) 36 Tablet 6 4 Active documented as of this encounter (statuses as of 08/20/2024) Active Problems Problem Noted Date Diagnosed Date [...] be handled at the discretion of the claims vice president. If hypothyroidism is poorly controlled, consider weekly [...] positive by sending a message to the [facility] Advanced Practitioner Pool ([id number]). We will alert pediatrics to the need [...] first trimester of . Refer back to MF if this occurs. She should continue to have growth assessments with MFM while she is clinically hypothyroid. If patient experiences thyroid goiter or nodule during , we recommend that she be referred to endocrinology for evaluation and management. is not a contraindication to fine needle aspiration but should be handled at the discretion of the claims vice president. If hypothyroidism is poorly controlled, consider weekly NSTs at 32 weeks. For women with a history of treated Graves' disease, third trimester MFM ultrasound should be performed to evaluate for goiter. Please refer immediately back to [facility] for persistent tachycardia on office evaluation as this may also be a symptom of hyperthyroidism. Please check TSI/TRAb after 20 weeks and notify MFM if positive by sending a message to the [facility] Advanced Practitioner Pool ([id number]). We will alert pediatrics to the need for possible follow-up. AMA (advanced maternal age) multigravida 35+ Overview (04/16/2024): Age 44YO at [facility] Patient desires NIPT - ordered by [facility]. Patient deferred genetic counseling referral at [...] cffDNA screening, and testing was coordinated by [facility]. Cell-free DNA (cffDNA) screening is a [...] cffDNA screening, and testing was coordinated by [facility]. Cell-free DNA (cffDNA) screening is a [...] as of this encounter (statuses as of 08/20/2024) Resolved Problems Problem Noted Date Diagnosed Date [...] positive by sending a message to the [facility] Advanced Practitioner Pool ([id number]). Abnormal mammogram 04/17/2022 3 Overview (04/17/2022): Subcentimeter focal asymmetry about 8/9 o'clock middle to posterior depth, right breast. Additional imaging is advised. No mammographic evidence of malignancy In the left breast. Further imaging right breast ordered documented as of this encounter (statuses as of 08/20/2024) Immunizations Name Administration Dates Next Due DTaP [...] money to get more. Never true 06/05/2024 [place] Depression Scale Answer Date Recorded [place] Depression Scale Total 3 03/24/2024 The thought [...] encounter Miscellaneous Notes * Telephone Encounter - Florinda Davies RN - 08/20/2024 4:[address] Haddad : I agree with your advice, but if the pt experiences any severe pain or vaginal bleeding , pt has togo the near hospital immediately for evaluation. Called patient and made aware of recommendations she is agreeable and verbalized understanding to all. Currently she feels fine, + FM, no bleeding, leaking or pain. * Telephone Encounter - Florinda Davies RN - 08/20/2024 1:46 PM EST Patient called she is 30w0d . concerned because she had a fall on the ice. She did not fallhard or directly on her belly, states she did a "split and knelt down to the ground on her knee". She has no vaginal bleeding, or leaking. Denies any pain. Has had + FM since falling. Advised her to continue to monitor FM, rest, drink plenty of water and monitor symptoms and to call back with new concerns. She verbalized understanding. Please advise further if needed. documented in this encounter Plan of Treatment Upcoming Encounters Date Type Department Care Team (Late st Contact Info) Description 08/21/2024 8:45 AM EST Imaging Maternal Medicine Imaging, [facility] [address] [facility] [place] [id number] 08/21/2024 8:45 AM EST Office Visit Dog Races Manager Obstetrics Maternal Medicine, [facility] [address] [facility] [place] [address] Verna Valencia, DO [address] [place] [address] 08/21/2024 10:15 AM EST Office Visit Gynecology/Obstetrics [facility] [address] [facility] [place] [address] Taryn Johnson CRNP [address] [facility] [address] Health Maintenance Due Date Last Done Comments [...] documented as of this encounter Care Teams Veneer Jointer Operator Relationship Specialty Start Date End Date Kelsey Vitale DO [address] [place] [address] PCP - General Family Medicine 11/02/23 documented as of this encounter
--- OUTSIDE RECORDS SUMMARY | 2024-10-22 12:15 | External Medical Summary | Summary of Care ---
Author Name Unknown Organization [facility] Address [address] [facility] [place] [address] Phone [phone] Care Team Providers Care Commercial Artist Lettering Name Role Phone Kelsey Vitale Primary Care Provider [phone] Reason for Visit * Reason Comments Return Visit Encounter Details Date Type Department Care Team (Late st Contact Info) Description 08/21/2024 10:15 AM EST Office Visit Gynecology/Obstetric s [facility] [address] [place] [address] Taryn Johnson CRNP [address] [place] [address] High-risk in third trimester*; Postoperative hypothyroidism; Hypothyroidism [...] in past. Patient had thyroidectomy by Dr. Regaaldo in May 2015, and pathology was benign. [...] first trimester of . Refer back to [facility] if this occurs. She should continue to have growth assessments with [facility] while she is clinically hypothyroid. If patient experiences thyroid goiter or nodule during , we recommend that she be referred to endocrinology for evaluation and management. is not a contraindication to fine needle aspiration but should be handled at the discretion of the classroom assistant. If hypothyroidism is poorly controlled, consider weekly NSTs at 32 weeks. For women with a history of treated Graves' disease, third trimester MF ultrasound should be performed to evaluate for goiter. Please refer immediately back to [facility] for persistent tachycardia on office evaluation as this may also be a symptom of hyperthyroidism. Please check TSI/TRAb after 20 weeks and notify [facility] if positive by sending a message to the [facility] Advanced Practitioner Pool ([id number]). We will alert pediatrics to the need [...] first trimester of . Refer back to [facility] if this occurs. She should continue to have growth assessments with MFM while she is clinically hypothyroid. If patient experiences thyroid goiter or nodule during , we recommend that she be referred to endocrinology for evaluation and management. is not a contraindication to fine needle aspiration but should be handled at the discretion of the classroom assistant. If hypothyroidism is poorly controlled, consider weekly NSTs at 32 weeks. For women with a history of treated Graves' disease, third trimester MFM ultrasound should be performed to evaluate for goiter. Please refer immediately back to [facility] for persistent tachycardia on office evaluation as this may also be a symptom of hyperthyroidism. Please check TSI/TRAb after 20 weeks and notify MFM if positive by sending a message to the [facility] Advanced Practitioner Pool ([id number]). We will alert pediatrics to the need for possible follow-up. AMA (advanced maternal age) multigravida 35+ Overview (04/16/2024): Age 44YO at [facility] Patient desires NIPT - ordered by [facility]. Patient deferred genetic counseling referral [...] cffDNA screening, and testing was coordinated by [facility]. Cell-free DNA (cffDNA) screening is [...] cffDNA screening, and testing was coordinated by [facility]. Cell-free DNA (cffDNA) screening is [...] positive by sending a message to the [facility] Advanced Practitioner Pool ([id number]). Abnormal mammogram 04/17/2022 Overview (04/17/2022): Subcentimeter focal [...] money to get more. Never true 06/05/2024 [place] Depression Scale Answer Date Recorded [place] Depression Scale Total 3 03/24/2024 The thought [...] Sign Reading Time Taken Comments Blood Pressure 126/74 08/21/2024 10:09 AM EST Pulse - - Temperature - - Respiratory Rate - - Oxygen Saturation - - Inhaled Oxygen Concentration - - Weight 105.1 kg (231 lb 12.8 oz) 2024 10:09 AM EST Height - - Body Mass Index 35.25 06/19/2024 9:12 AM EST documented in this encounter Progress Notes * Taryn Johnson CRNP - 08/21/2024 10:16 AM EST 30w1d No concerns. Baby is active. No contractions, bleeding, LOF. Had MFM appt before this visit, +cardiac activity, appropriate growth. JAYSON Shultz * Luz Gray CMA - 08/21/2024 10:09 AM EST 30w1d Denies any concerns documented in this encounter Plan of Treatment Upcoming Encounters Date Type Department Care Team (Late st Contact Info) Description 09/05/2024 8:45 AM EST Office Visit Gynecology/Obstetrics [facility] [address] [place] [address] Taryn Johnson CRNP [address] [place] [address] Health Maintenance Due Date Last Done Comments [...] documented as of this encounter Care Teams Commercial Artist Lettering Relationship Specialty Start Date End Date Kelsey Vitale DO [address] [place] [address] PCP - General Family Medicine 11/02/23 documented as of this encounter
--- OUTSIDE RECORDS SUMMARY | 2024-10-22 12:15 | External Medical Summary | Summary of Care ---
Author Name Unknown Organization [facility] Address [address] [place] [address] Phone [phone] Care Team Providers Care Scrub Technician Name Role Phone IamKelsey prdao Marlys MENDEZ Primary Care Provider [phone] Reason for Visit * Evaluate & Treat - Unlimited Visits (Within 10 days (routine)) - Authorized Specialty Diagnoses / Procedures Referred By Contnawaf t Referred To Contact Obstetrics/Gynecology / Maternal Medicine Diagnoses High-risk in first trimester Primigravida of advanced maternal age in first trimester Obesity in , antepartum Hypothyroidism affecting in first trimester Analilia Perry CRNP [address] [facility] [place] [address] Phone: tel: fax: Referral ID Status Reason Start Date Expiration Date Visits Requested Visits Authorized [id number] Authorized Specialty Services Required 09/26/2023 09/26/[phone] Encounter Details Date Type Department Care Team (Late st Contact Info) Description 08/21/2024 8:45 AM EST Office Visit Bricklayer'S Assistant Obstetrics Maternal Medicine, [facility] [address] [place] [address] Verna Valencia, DO [address] [place] [address] Obesity in , antepartum*; Multigravida [...] first trimester of . Refer back to [facility] if this occurs. She should continue to have growth assessments with MFM while she is clinically hypothyroid. If patient experiences thyroid goiter or nodule during , we recommend that she be referred to endocrinology for evaluation and management. is not a contraindication to fine needle aspiration but should be handled at the discretion of the fashion merchandiser. If hypothyroidism is poorly controlled, consider weekly NSTs at 32 weeks. For women with a history of treated Graves' disease, third trimester MFM ultrasound should be performed to evaluate for goiter. Please refer immediately back to [facility] for persistent tachycardia on office evaluation as this may also be a symptom of hyperthyroidism. Please check TSI/TRAb after 20 weeks and notify [facility] if positive by sending a message to the [facility] Advanced Practitioner Pool ([id number]). We will alert pediatrics to the need [...] first trimester of . Refer back to [facility] if this occurs. She should continue to have growth assessments with MFM while she is clinically hypothyroid. If patient experiences thyroid goiter or nodule during , we recommend that she be referred to endocrinology for evaluation and management. is not a contraindication to fine needle aspiration but should be handled at the discretion of the fashion merchandiser. If hypothyroidism is poorly controlled, consider weekly [...] positive by sending a message to the [facility] Advanced Practitioner Pool ([id number]). We will alert pediatrics to the need for possible follow-up. AMA (advanced maternal age) multigravida 35+ Overview (04/16/2024): Age 44YO at [facility] Patient desires NIPT - ordered by [facility]. Patient deferred genetic counseling referral [...] cffDNA screening, and testing was coordinated by [facility]. Cell-free DNA (cffDNA) screening is [...] cffDNA screening, and testing was coordinated by [facility]. Cell-free DNA (cffDNA) screening is [...] positive by sending a message to the [facility] Advanced Practitioner Pool ([id number]). Abnormal mammogram 04/17/2022 3 Overview (04/17/2022): Subcentimeter [...] money to get more. Never true 06/05/2024 [place] Depression Scale Answer Date Recorded [place] Depression Scale Total 3 03/24/2024 The thought [...] No 06/05/2024 Does the household have a [facility] source of income? (Household - for [...] 09/05/2024 8:45 AM EST Office Visit Gynecology/Obstetrics [facility] [address] [place] [address] Taryn Johnson CRNP [address] [place] [address] Health Maintenance Due Date Last Done Comments [...] documented as of this encounter Care Teams Scrub Technician Relationship Specialty Start Date End Date Kelsey Vitale DO [address] [place] [address] PCP - General Family Medicine 11/02/23 documented as of this encounter
--- OUTSIDE RECORDS SUMMARY | 2024-10-22 12:15 | External Medical Summary | Summary of Care ---
Author Name Unknown Organization [facility] Address [address] [facility] [address] Phone [phone] Care Team Providers Care Lcac Operator Name Role Phone Kelsey Vitale DO Primary Care Provider [phone] Reason for Visit * Reason Comments Return Visit Encounter Details Date Type Department Care Team (Late st Contact Info) Description 09/18/2024 9:15 AM EST Office Visit Gynecology/Obstetric s [facility] [address] [place] [address] Analilia Perry CRNP [address] [place] [address] High-risk in third trimester*; Postoperative hypothyroidism; Hypothyroidism affecting in third trimester; Multigravida of advanced maternal age in third trimester; Obesity in , antepartum; At risk for complication of ; Family history of trisomy 13; Marginal insertion of umbilical cord affecting management of mother Allergies Active Allergy Reactions Criticality Noted Date Comments Sulfa Antibiotics Hives 08/13/2018 documented as of this encounter (statuses as of 09/18/2024) Medications 28-0.8 MG Oral Tablet Take by mouth. Active Levothyroxine Sodium 112 MCG Oral Tablet (Levoxyl)Indica tions:Hypothyro idism affecting in first trimester 1 tablet by mouth on Sunday, Sunday, Sunday, Sunday, Sunday; 2 tablets on / (at least 30 min prior to breakfast or other meds) 36 Tablet 6 4 Active documented as of this encounter (statuses as of 09/18/2024) Active Problems Problem Noted Date Diagnosed Date [...] first trimester of . Refer back to [facility] if this occurs. She should continue to have growth assessments with MF while she is clinically hypothyroid. If patient experiences thyroid goiter or nodule during , we recommend that she be referred to endocrinology for evaluation and management. is not a contraindication to fine needle aspiration but should be handled at the discretion of the animal killer. If hypothyroidism is poorly controlled, consider weekly NSTs at 32 weeks. For women with a history of treated Graves' disease, third trimester MF ultrasound should be performed to evaluate for goiter. Please refer immediately back to [facility] for persistent tachycardia on office evaluation as this may also be a symptom of hyperthyroidism. Please check TSI/TRAb after 20 weeks and notify [facility] if positive by sending a message to the [facility] Advanced Practitioner Pool ([id number]). We will alert pediatrics to the need [...] first trimester of . Refer back to [facility] if this occurs. She should continue to have growth assessments with MFM while she is clinically hypothyroid. If patient experiences thyroid goiter or nodule during , we recommend that she be referred to endocrinology for evaluation and management. is not a contraindication to fine needle aspiration but should be handled at the discretion of the animal killer. If hypothyroidism is poorly controlled, consider weekly NSTs at 32 weeks. For women with a history of treated Graves' disease, third trimester MFM ultrasound should be performed to evaluate for goiter. Please refer immediately back to [facility] for persistent tachycardia on office evaluation as this may also be a symptom of hyperthyroidism. Please check TSI/TRAb after 20 weeks and notify MFM if positive by sending a message to the [facility] Advanced Practitioner Pool ([id number]). We will alert pediatrics to the need for possible follow-up. AMA (advanced maternal age) multigravida 35+ Overview (04/16/2024): Age 44YO at [facility] Patient desires NIPT - ordered by [facility]. Patient deferred genetic counseling referral at [...] cffDNA screening, and testing was coordinated by [facility]. Cell-free DNA (cffDNA) screening is a [...] cffDNA screening, and testing was coordinated by [facility]. Cell-free DNA (cffDNA) screening is a [...] increased risk of congenital/structural anomalies. RECOMMENDATIONS: Recommend [facility] anatomy ultrasound at 19-20 weeks gestation. [...] as of this encounter (statuses as of 09/18/2024) Resolved Problems Problem Noted Date Diagnosed Date [...] positive by sending a message to the [facility] Advanced Practitioner Pool ([id number]). Abnormal mammogram 04/17/2022 Overview (04/17/2022): Subcentimeter focal asymmetry about 8/9 o'clock middle to posterior depth, right breast. Additional imaging is advised. No mammographic evidence of malignancy In the left breast. Further imaging right breast ordered documented as of this encounter (statuses as of 09/18/2024) Immunizations Name Administration Dates Next Due DTaP [...] money to get more. Never true 06/05/2024 [place] Depression Scale Answer Date Recorded [place] Depression Scale Total 3 09/18/2024 The thought [...] Sign Reading Time Taken Comments Blood Pressure 118/70 09/18/2024 9:04 AM EST Pulse - - Temperature - - Respiratory Rate - - Oxygen Saturation - - Inhaled Oxygen Concentration - - Weight 106.1 kg (234 lb) 09/18/2024 9:04 AM EST Height - - Body Mass Index 35.58 06/19/2024 9:12 AM EST documented in this encounter Progress Notes * Analilia Perry CRNP - 09/18/2024 9:07 AM EST 34w1d Doing well. Denies ctx, leaking, bleeding. Baby moving normally - discussed [facility] and when to call with concerns. Labor instructions provided. In process of choosing a floor layer apprentice. Discussed MFM recommendations for weekly NSTs at 38 wks, delivery in 39th week. She declines scheduling an induction at this time. U/S with MFM last month showed normal growth and CAROL. 2 week return, GBS swab at that time. JAYSON Norman * Maria Del Carmen Seay LPN - 09/18/2024 9:05 AM EST 34w1d Denies vaginal bleeding/rom + movement documented in this encounter Plan of Treatment Upcoming Encounters Date Type Department Care Team (Late st Contact Info) Description 10/06/2024 8:30 AM EDT Office [facility] [address] [place] [address] Analilia Perry CRNP [address] [place] [address] Health Maintenance Due Date Last Done Comments [...] documented as of this encounter Care Teams Lcac Operator Relationship Specialty Start Date End Date Kelsey Vitale DO [address] [place] [address] PCP - General Family Medicine 11/02/23 documented as of this encounter
--- OUTSIDE RECORDS SUMMARY | 2024-10-22 12:15 | External Medical Summary | Summary of Care ---
Author Name Unknown Organization [facility] Address [address] [facility] [address] Phone [phone] Care Team Providers Care Model Set Artist Name Role Phone Kelsey Vitale DO Primary Care Provider [phone] Reason for Visit * Reason Comments Return Visit Encounter Details Date Type Department Care Team (Late st Contact Info) Description 10/06/2024 8:30 AM EDT Office Visit Gynecology/Obstetric s Nicole Osorio [address] [place] [address] Analilia Perry CRNP [address] [place] [address] High-risk in third trimester*; Postoperative hypothyroidism; Hypothyroidism [...] first trimester of . Refer back to [facility] if this occurs. She should continue to have growth assessments with MFM while she is clinically hypothyroid. If patient experiences thyroid goiter or nodule during , we recommend that she be referred to endocrinology for evaluation and management. is not a contraindication to fine needle aspiration but should be handled at the discretion of the industrial safety and health manager. If hypothyroidism is poorly controlled, consider weekly NSTs at 32 weeks. For women with a history of treated Graves' disease, third trimester MFM ultrasound should be performed to evaluate for goiter. Please refer immediately back to [facility] for persistent tachycardia on office evaluation as this may also be a symptom of hyperthyroidism. Please check TSI/TRAb after 20 weeks and notify [facility] if positive by sending a message to the [facility] Advanced Practitioner Pool ([id number]). We will alert pediatrics to the need [...] first trimester of . Refer back to [facility] if this occurs. She should continue to have growth assessments with MFM while she is clinically hypothyroid. If patient experiences thyroid goiter or nodule during , we recommend that she be referred to endocrinology for evaluation and management. is not a contraindication to fine needle aspiration but should be handled at the discretion of the industrial safety and health manager. If hypothyroidism is poorly controlled, consider weekly NSTs at 32 weeks. For women with a history of treated Graves' disease, third trimester MFM ultrasound should be performed to evaluate for goiter. Please refer immediately back to [facility] for persistent tachycardia on office evaluation as this may also be a symptom of hyperthyroidism. Please check TSI/TRAb after 20 weeks and notify [facility] if positive by sending a message to the [facility] Advanced Practitioner Pool ([id number]). We will alert pediatrics to the need for possible follow-up. AMA (advanced maternal age) multigravida 35+ Overview (04/16/2024): Age 44YO at [facility] Patient desires NIPT - ordered by [facility]. Patient deferred genetic counseling referral at [...] cffDNA screening, and testing was coordinated by [facility]. Cell-free DNA (cffDNA) screening is a [...] increased risk of congenital/structural anomalies. RECOMMENDATIONS: Recommend [facility] anatomy ultrasound at 19-20 weeks gestation. [...] positive by sending a message to the [facility] Advanced Practitioner Pool ([id number]). Abnormal mammogram 04/17/2022 Overview (04/17/2022): Subcentimeter focal [...] money to get more. Never true 06/05/2024 [place] Depression Scale Answer Date Recorded [place] Depression Scale Total 3 09/18/2024 The thought [...] NSTs at 38 weeks. 1 week NURYS. Director Of Consumer Affairs Documentation Provider requested optimization consultant. Name of optimization consultant: JAYSON Coon * Maria Del Carmen Seay LPN - 10/06/2024 8:24 AM EDT [id number] Denies vaginal bleeding/rom + movement documented in this encounter Plan of Treatment Upcoming Encounters Date Type Department Care Team (Late st Contact Info) Description 10/15/2024 11:30 AM EDT Office Visit Gynecology/Obstetrics Irvingkb Osorio [address] [place] [address] Taryn Johnson CRNP [address] [place] [address] Charlotte Osorio Stress Tests Omar [address] [place] [address] 11/12/2024 11:30 AM EDT Telemedicine Gynecology/Obstetrics Irving[facility] Venegass [address] [place] [address] Taryn Johnson CRNP [address] [place] [address] 12/04/2024 12:00 PM EDT Office Visit Gynecology/Obstetrics Irvingkb Osorio [address] [place] [address] Taryn Johnson CRNP [address] [place] [address] Scheduled Orders Name Type Priority Associated Diagnoses [...] documented as of this encounter Care Teams Model Set Artist Relationship Specialty Start Date End Date Kelsey Vitale DO [address] [place] [address] PCP - General Family Medicine 11/02/23 documented as of this encounter
--- OUTSIDE RECORDS SUMMARY | 2024-10-22 12:15 | External Medical Summary | Summary of Care ---
Author Name Unknown Organization [facility] Address [address] [facility] [place] [address] Phone [phone] Care Team Providers Care Food Safety Officer Name Role Phone IamEricmanuel Frankel DO Primary Care Provider [phone] Encounter Details Date Type Department Care Team (Late st Contact Info) Description 08/20/2024 Telephone Gynecology/Obstetrics [facility] [address] [place] [address] Cassandra Haddad MD [address] [place] [address] Allergies Active Allergy Reactions Criticality Noted Date [...] be handled at the discretion of the moisture conditioner operator. If hypothyroidism is poorly controlled, consider [...] by sending a message to the [facility] Advanced Practitioner Pool ([id number]). We will alert pediatrics to the need [...] be handled at the discretion of the moisture conditioner operator. If hypothyroidism is poorly controlled, consider weekly NSTs at 32 weeks. For women with a history of treated Graves' disease, third trimester MFM ultrasound should be performed to evaluate for goiter. Please refer immediately back to [facility] for persistent tachycardia on office evaluation as this may also be a symptom of hyperthyroidism. Please check TSI/TRAb after 20 weeks and notify MFM if positive by sending a message to the [facility] Advanced Practitioner Pool ([id number]). We will alert pediatrics to the need for possible follow-up. AMA (advanced maternal age) multigravida 35+ Overview (04/16/2024): Age 44YO at [place] Patient desires NIPT - ordered by [facility]. Patient deferred genetic counseling referral at this [...] screening, and testing was coordinated by [facility]. Cell-free DNA (cffDNA) screening is a genetic [...] screening, and testing was coordinated by [facility]. Cell-free DNA (cffDNA) screening is a genetic [...] by sending a message to the [facility] Advanced Practitioner Pool ([id number]). Abnormal mammogram 04/17/2022 3 Overview (04/17/2022): Subcentimeter [...] money to get more. Never true 06/05/2024 [place] Depression Scale Answer Date Recorded [place] Depression Scale Total 3 03/24/2024 The thought [...] AM EST Imaging Maternal Medicine Imaging, Omar Osorio [facility] [address] [place] [address] 08/21/2024 8:45 AM EST Office Visit Used Car Make Ready Mechanic Obstetrics Maternal Medicine, Omar Osorio [address] [place] [address] [place] [address] Annie Vernayola Cody, DO [address] [facility], [place] [address] 08/21/2024 10:15 AM EST Office Visit Gynecology/Obstetrics Nicole Osorio [address] [place] [address] Taryn Johnson CRNP [address] [place] [address] Health Maintenance Due Date Last Done Comments [...] documented as of this encounter Care Teams Food Safety Officer Relationship Specialty Start Date End Date Kelsey Vitale DO [address] [place] [address] PCP - General Family Medicine 11/02/23 documented as of this encounter
--- OUTSIDE RECORDS SUMMARY | 2024-10-22 12:15 | External Medical Summary | Summary of Care ---
Author Name Unknown Organization [facility] Address [address] [facility] [place] [address] Phone [phone] Care Team Providers Care Consultant [employer]. Vice President [employer] (Ex ) Name Role Phone Kelsey Vitale DO Primary Care Provider [phone] Encounter Details Date Type Department Care Team (Late st Contact Info) Description 08/20/2024 Telephone [facility] Gynecology and Obstetrics [address] [place] [address] Cassandra Haddad MD [address] [place] [address] Allergies Active Allergy Reactions Criticality Noted Date Comments Sulfa Antibiotics Hives 08/13/2018 documented as of this encounter (statuses as of 08/22/2024) Medications 28-0.8 MG Oral Tablet Take by mouth. Active Levothyroxine Sodium 112 MCG Oral Tablet (Levoxyl)Indica tions:Hypothyro idism affecting in first trimester 1 tablet by mouth on Sunday, Sunday, Sunday, Sunday, Sunday; 2 tablets on /Th (at least 30 min prior to breakfast or other meds) 36 Tablet 6 4 Active documented as of this encounter (statuses as of 08/22/2024) Active Problems Problem Noted Date Diagnosed Date [...] be handled at the discretion of the paper bundler. If hypothyroidism is poorly controlled, consider weekly [...] positive by sending a message to the [facility] Advanced Practitioner Pool ([id number]). We will alert pediatrics to the need [...] be handled at the discretion of the paper bundler. If hypothyroidism is poorly controlled, consider weekly NSTs at 32 weeks. For women with a history of treated Graves' disease, third trimester MFM ultrasound should be performed to evaluate for goiter. Please refer immediately back to [facility] for persistent tachycardia on office evaluation as this may also be a symptom of hyperthyroidism. Please check TSI/TRAb after 20 weeks and notify MF if positive by sending a message to the [facility] Advanced Practitioner Pool ([id number]). We will alert pediatrics to the need for possible follow-up. AMA (advanced maternal age) multigravida 35+ Overview (04/16/2024): Age 44YO at [place] Patient desires NIPT - ordered by [facility]. Patient deferred genetic counseling referral at [...] cffDNA screening, and testing was coordinated by [facility]. Cell-free DNA (cffDNA) screening is a [...] cffDNA screening, and testing was coordinated by [facility]. Cell-free DNA (cffDNA) screening is a [...] as of this encounter (statuses as of 08/22/2024) Resolved Problems Problem Noted Date Diagnosed Date [...] positive by sending a message to the [facility] Advanced Practitioner Pool ([id number]). Abnormal mammogram 04/17/2022 3 Overview (04/17/2022): Subcentimeter focal asymmetry about 8/9 o'clock middle to posterior depth, right breast. Additional imaging is advised. No mammographic evidence of malignancy In the left breast. Further imaging right breast ordered documented as of this encounter (statuses as of 08/22/2024) Immunizations Name Administration Dates Next Due DTaP [...] money to get more. Never true 06/05/2024 [place] Depression Scale Answer Date Recorded [place] Depression Scale Total 3 03/24/2024 The thought [...] encounter Miscellaneous Notes * Telephone Encounter - Cassandra Haddad MD - 08/20/2024 3:47 PM EST I agree with your advice, but if the pt experiences any severe pain or vaginal bleeding , pt has togo the near hospital immediately for evaluation. documented in this encounter Plan of Treatment Upcoming Encounters Date Type Department Care Team (Late st Contact Info) Description 09/05/2024 8:45 AM EST Office Visit Gynecology/Obstetrics [facility] [address] [place] [address] Taryn Johnson CRNP [address] [place] [address] Health Maintenance Due Date Last Done Comments [...] documented as of this encounter Care Teams Consultant [employer]. Vice President [employer] (Ex ) Relationship Specialty Start Date End Date Kelsey Vitale DO [address] [place] [address] PCP - General Family Medicine 11/02/23 documented as of this encounter
--- OUTSIDE RECORDS SUMMARY | 2024-10-22 12:16 | External Medical Summary | Summary of Care ---
Author Name Unknown Organization [facility] Address [address] [facility] [address] Phone [phone] Care Team Providers Care Claims Director Name Role Phone Kelsey Vitale DO Primary Care Provider [phone] Reason for Visit * Reason Comments Outpatient Testing Encounter Details Date Type Department Care Team (Late st Contact Info) Description 05/22/2024 4:10 PM EDT Laboratory Laboratory, [facility] [address] [facility] [place] [address] [facility] [address] [facility] [place] [address] Hypothyroidism affecting in second trimester; High-risk in second trimester Allergies Active Allergy Reactions Criticality Noted Date Comments Sulfa Antibiotics Hives 08/13/2018 documented as of this encounter (statuses as of 05/22/2024) Medications Medication Sig Dispensed Refills Start Date End Date Status 28-0.8 MG Oral Tablet Take by mouth. Active Levothyroxine Sodium 112 MCG Oral Tablet (Levoxyl)Indications :Hypothyroidism affecting in first trimester 1 tablet by mouth on Sunday, Sunday, Sunday, Sunday, Sunday; 2 tablets on /Th (at least 30 min prior to breakfast or other meds) 36 Tablet 6 04/25/2024 Active documented as of this encounter (statuses as of 05/22/2024) Active Problems Problem Noted Date Diagnosed Date Family history of trisomy 13 03/24/2024 Overview: Qnatal positive for Trisomy 13 in 10/2023 -- pt had miscarriage Patient deferred genetic counseling referral at this time. Patient desires NIPT. Last Assessment & Plan: Offer genetic counseling referral. At risk for complication of 10/03/2023 Overview: Moderate risk factors for preeclampsia: nulliparity, age >35YO, and BMI >30 BP Readings from Last 5 Encounters: 03/24/24 118/70 02/15/24 126/68 11/09/23 108/70 11/02/23 135/77 10/30/23 112/64 Discussed recommendation for bASA therapy (aspirin 81mg/day) starting at 13w gestation. Last Assessment & Plan: For patients with more than one moderate [...] than 150,000) High-risk 09/26/2023 Hypothyroidism affecting 09/26/2023 Overview: Postoperative hypothyroidism History of Graves disease, was on methimazole in past. Patient had thyroidectomy by Dr. Regalado in May 2015, and pathology was benign. Managed by PCP Managed with Levothyroxine 112 mcg daily Lab Results Component Value Date/Time TSH - [facility] 1.33 03/14/2024 08:14 AM TSH - [facility] 1.11 02/25/2020 08:45 AM Last Assessment & Plan: CONSIDERATIONS: Discussed with the patient that uncontrolled [...] be handled at the discretion of the admission nurse coordinator. If hypothyroidism is poorly controlled, consider weekly [...] positive by sending a message to the [facility] Advanced Practitioner Pool ([id number]). We will alert pediatrics to the need for possible follow-up. AMA (advanced maternal age) multigravida 35+ Overview: Age 44YO at [place] Patient desires NIPT - ordered by [facility]. Patient deferred genetic counseling referral at this time. 04/16/24: NIPT LR Last Assessment & Plan: CONSIDERATIONS: We reviewed the most pertinent aspects of the following: Advanced maternal age (AMA) refers to a woman with a nesbitt who will be at the age of 35 or older at the estimated time of delivery and may be associated with increased morbidity. After discussion of the genetic screening/testing options, the patient desires cffDNA screening, and testing was coordinated by [facility]. Cell-free DNA (cffDNA) screening is a genetic [...] by [facility]. Obesity in , antepartum 09/26/2023 Overview: The patient's pre-gravid BMI is 31.63. Class 1 Early 1hr GCT ordered. Last Assessment & Plan: CONSIDERATIONS: Discussed obstetrical risks associated with class [...] anatomy at 20 weeks. Postoperative hypothyroidism 08/13/2018 Overview: S/p partial thyroidectomy Chronic allergic rhinitis 08/13/2018 Estimated Date of Delivery Comme nts Yes 10/29/2024 Based on last me nstrual period of 01/23/2024 (Exact Date) documented as of this encounter (statuses as of 05/22/2024) Resolved Problems Problem Noted Date Diagnosed Date Resolved Date Maternal care for (suspected ) chromosomal abnormality in fetus, trisomy 13, fetus 1 10/31/2023 03/24/2024 Overview: Qnatal positive for Trisomy 13 in 10/2023 -- pt had miscarriage History of Graves' disease 10/01/2023 0 03/24/2024 Overview: History of Graves disease - S/P partial thyroidectomy Per MFM: Please check TSI/TRAb after 20 weeks and notify MFM if positive by sending a message to the [facility] Advanced Practitioner Pool ([id number]). Abnormal mammogram 04/17/2022 Overview: Subcentimeter focal asymmetry about 8/9 o'clock middle to posterior depth, right breast. Additional imaging is advised. No mammographic evidence of malignancy In the left breast. Further imaging right breast ordered documented as of this encounter (statuses as of 05/22/2024) Immunizations Name Administration Dates Next Due DTaP [...] the money to buy more. Never true 03/03/20 24 Within the past 12 months, t he food you bought just didn't last and you didn't have money to get more. Never true 03/03/2024 [place] Depression Scale Answer Date Recorded [place] Depression Scale Total 3 03/24/2024 The thought of harming myself has occurred to me . Never 03/24/2024 Childcare Answer Date Recorded Do you feel overwhelmed with taking care of a child, family member or friend? No 03/03/2024 Does your family need help f inding childcare? (Household - for ages 0-17 years) Not on file 03/03/2024 Clothing Answer Date Recorded Have you been unable to get clothing when it was really needed? No 03/03/2024 Is your family able to get c lothes or diapers when needed? (Household - for ages 0-17 years) Not on file 03/03/2024 Personal Safety Answer Date Recorded Do you feel unsafe or have concerns for your saf ety? No 03/03/2024 Do you have concerns for you r family's safety? (Household - for ages 0-17 years) Not on file 03/03/2024 Utilities Answer Date Recorded Do you have trouble paying y our heating, water, or electric bill? No 03/03/2024 Is your family able to pay t he heat, water, or electric bill? (Household - for ages 0-17 years) Not on file 03/03/2024 Does your family have access to good internet? (Household - for ages 0-17 years) Not on file 03/03/2024 Employment Status Answer Date Recorded Are you unemployed or without regular income? No 03/03/2024 Does the household have a re gular source of income? (Household - for ages 0-17 years) Not on file 03/03/2024 Social Connections Answer Date Recorded How often do you feel lonely or isolated from th ose around you? Never 03/03/2024 Financial Resource Strain Answer Date R ecorded Do you have any trouble payi ng for your medications, or do you think you might in the future? No 03/03/2024 Does your family have troubl e paying for medicine? (Household - for ages 0-17 years) Not on file 03/03/2024 Transportation Needs Answer Date Record ed Do you have trouble getting a ride to medical visits or work? (Adult - for ages 18 years and over) Not on file 03/03/2024 Does your family have a hard time getting a ride to doctors visits? (Household - for ages 0-17 years) Not on file 03/03/2024 Has lack of transportation k ept you from medical appointments, meetings, work, or from getting things needed for daily living? Check all that apply. No 03/03/2024 Do you (or your family) have trouble finding or paying for a ride (transportation)? (Household - for ages 0-17 years) Not on file 03/03/2024 Housing Stability Answer Date Recorded Do you currently live in a s helter or have no steady place to sleep at night? No 03/03/2024 Do you think you are at risk of becoming homeless? (Adult - for ages 18 years and over) Not on file 03/03/2024 Does your family worry about paying for your home or becoming homeless? (Household - for ages 0-17 years) Not on file 0 03/03/2024 Are you homeless or worried that you might be in the future? No 03/03/2024 Are you (or your family) tiara eless or worried that you might be in the future? (Household - for ages 0-17 years) Not on file Food Insecurity Answer Date Recorded Do you need food for this week? No 03/03/2024 Are you able to get enough f ood for your family? (Household - for ages 0-17 years) Not on file 03/03/2024 Does your family need food t his week? (Household - for ages 0-17 years) Not on file 03/03/2024 Do you always have enough fo od for your family? (Household - for ages 0-17 years) Not on file 03/03/2024 Estimated Date of Delivery Comme nts Yes 10/29/2024 Based on last me nstrual period of 01/23/2024 (Exact Date) Sex and Gender Information Value Date Recorded Sex Assigned at Female 04/06/2021 4:24 PM EDT Gender Identity Female 04/06/2021 4:24 PM EDT Sexual Orientation Straight 04/06/2021 4: 24 PM EDT Job Start Date Occupation Industry Not on file Not on file Not on file documented as of this encounter Plan of Treatment Upcoming Encounters Date Type Department Care Team (Late st Contact Info) Description 06/13/2024 1:30 PM EST Office Visit Locomotive Observer OB Maternal Medicine [facility] Linden Dunlap [address] [place] [address] [address] [place] [address] Verna Valencia, DO [address] [place] [address] 06/13/2024 1:30 PM EST Imaging Maternal Medicine [facility] Linden Dunlap [address] [place] [address] [address] [place] [address] 06/18/2024 11:15 AM EST Imaging Radiology [facility] [address] [facility] [place] [address] 06/19/2024 9:15 AM EST Office Visit Gynecology/Obstetrics [facility] [address] [facility] [place] [address] Analilia Perry CRNP [address] [facility] [place] [address] Pending Results Name Type Priority Associated Diagnoses Date /Time TSH WITH FREE T4 IF INDICATED Lab Routine Hypothyroidism affecting in second trimester 05/22/2024 4:07 PM EDT MATERNAL SERUM AFP Lab Routine High-risk in second trimester 05/22/2024 4:07 PM EDT Health Maintenance Due Date Last Done Comments HPV/Co-Test 2012 Cervical Cancer Screening 09/16/2022 Pap Smear 09/16/2022 09/16/2019, 08/30, 01/14/2018 DTap/Tdap Vaccines (7 - Td or Tdap) 01/02/2024 01/01/2014, 04/24/1986, 10/18/1983, Additional history exists COVID-19 Vaccine ( season) 2024 Influenza Vaccine (FLU shot) (#1) 2024 04/21/2022, 04/19/2021, 04/15/2020, Additional history exists Mammogram 06/18/2024 06/18/2023, 05/31, 05/02/2022, Additional history exists Depression Screening 02/14/2025 02/15/2024 TSH 03/14/2025 03/14/2024, 01/27, 01/11/2024, Additional history exists Diabetes Screening 01/23/2026 01/23/2023, 0 01/23/2022, 02/25/2020, Additional history exists Lipid Panel 01/24/2028 01/23/2023, 12/29, 02/25/2020, Additional history exists Hepatitis B Vaccine Completed 07/12/1998, 01/13/1998, 12/02/1997 MENINGOCOCCAL (MENACTRA/MENVEO) Completed 07/30/2000 HPV (Gardasil) Vaccine Aged Out No lo nger eligible based on patient's age to complete this topic Pneumococcal Vaccine: Pediatrics (0 to 5 Years) and At-Risk Patients (6 to 64 Years) Aged Out No longer eligible based on patient's age to complete this topic documented as of this encounter Goals Goal Patient Goal Type Associated Problems Recent Progress Patient-Stated? Author Reminders Care Plan OB Reminders No Rasheeda, Provider documented as of this encounter Medical Devices Not on filedocumented as of this encounter Visit Diagnoses Diagnosis Hypothyroidism affecting in second trimester High-risk in second trimester documented in this encounter Additional Health Concerns Active Problems Noted Date Diagnosed Date OB Reminders 04/08/2024 documented as of this encounter Care Teams Claims Director Relationship Specialty Start Date End Date Kelsey Vitale DO [address] [place] [address] PCP - General Family Medicine 11/02/23 documented as of this encounter
--- OUTSIDE RECORDS SUMMARY | 2024-10-22 12:16 | External Medical Summary | Summary of Care ---
Author Name Unknown Organization [facility] Address [address] [facility] [address] Phone [phone] Care Team Providers Care Systems Development Manager Name Role Phone Iam Kelsey Frankel DO Primary Care Provider [phone] Reason for Visit * Reason Comments Outpatient Testing Encounter Details Date Type Department Care Team (Late st Contact Info) Description 08/04/2024 11:20 AM EST Laboratory Laboratory, [facility] [address] [facility] [place] [phone] [facility] [address] [facility] [place] [address] High-risk in second trimester; Hypothyroidism affecting in second trimester Allergies Active Allergy Reactions Criticality Noted Date Comments Sulfa Antibiotics Hives 08/13/2018 documented as of this encounter (statuses as of 08/04/2024) Medications 28-0.8 MG Oral Tablet Take by mouth. Active Levothyroxine Sodium 112 MCG Oral Tablet (Levoxyl)Indica tions:Hypothyro idism affecting in first trimester 1 tablet by mouth on Sunday, Sunday, Sunday, Sunday, Sunday; 2 tablets on / (at least 30 min prior to breakfast or other meds) 36 Tablet 6 Active documented as of this encounter (statuses as of 08/04/2024) Active Problems Problem Noted Date Diagnosed Date [...] be handled at the discretion of the psychiatric security nurse. If hypothyroidism is poorly controlled, consider weekly [...] positive by sending a message to the [facility] Advanced Practitioner Pool ([id number]). We will alert pediatrics to the need [...] first trimester of . Refer back to [facility] if this occurs. She should continue to have growth assessments with [facility] while she is clinically hypothyroid. If patient experiences thyroid goiter or nodule during , we recommend that she be referred to endocrinology for evaluation and management. is not a contraindication to fine needle aspiration but should be handled at the discretion of the psychiatric security nurse. If hypothyroidism is poorly controlled, consider weekly NSTs at 32 weeks. For women with a history of treated Graves' disease, third trimester MFM ultrasound should be performed to evaluate for goiter. Please refer immediately back to [facility] for persistent tachycardia on office evaluation as this may also be a symptom of hyperthyroidism. Please check TSI/TRAb after 20 weeks and notify MF if positive by sending a message to the [facility] Advanced Practitioner Pool ([id number]). We will alert pediatrics to the need for possible follow-up. AMA (advanced maternal age) multigravida 35+ Overview (04/16/2024): Age 44YO at [facility] Patient desires NIPT - ordered by [facility]. Patient deferred genetic counseling referral [...] cffDNA screening, and testing was coordinated by [facility]. Cell-free DNA (cffDNA) screening is [...] cffDNA screening, and testing was coordinated by [facility]. Cell-free DNA (cffDNA) screening is [...] as of this encounter (statuses as of 08/04/2024) Resolved Problems Problem Noted Date Diagnosed Date [...] positive by sending a message to the [facility] Advanced Practitioner Pool ([id number]). Abnormal mammogram 04/17/2022 3 Overview (04/17/2022): Subcentimeter focal asymmetry about 8/9 o'clock middle to posterior depth, right breast. Additional imaging is advised. No mammographic evidence of malignancy In the left breast. Further imaging right breast ordered documented as of this encounter (statuses as of 08/04/2024) Immunizations Name Administration Dates Next Due DTaP [...] money to get more. Never true 06/05/2024 [place] Depression Scale Answer Date Recorded [place] Depression Scale Total 3 03/24/2024 The thought [...] Care Team (Late st Contact Info) Description 08/04/2024 1:30 PM EST Office Visit Gynecology/Obstetrics Nicole Osorio [address] [place] [address] Analilia Perry CRNP [address] [place] [address] Arrived 08/21/2024 8:45 AM EST Imaging Maternal Medicine Imaging, Omar Osorio [address] [place] [phone] Pending Results Name Type Priority Associated Diagnoses Date /Time 50-G GESTATIONAL GLUCOSE, 1 HOUR Lab Routine High-risk in second trimester 08/04/2024 12:37 PM EST CBC WITH WBC DIFFERENTIAL AND ANEMIA REFLEX WORKUP Lab Routine High-risk in second trimester 08/04/2024 12:37 PM EST SYPHILIS ANTIBODY SCREEN WITH REFLEX TO RPR Lab Routine High-risk in second trimester 08/04/2024 12:37 PM EST TSH WITH FREE T4 IF INDICATED Lab Routine Hypothyroidism affecting in second trimester 08/04/2024 12:37 PM EST ANEMIA CBC Lab Routine High-risk in second trimester 08/04/2024 12:37 PM EST DIFFERENTIAL, AUTOMATED Lab Routine High-risk in second trimester 08/04/2024 12:37 PM EST ANEMIA REFLEX CHEMISTRY HOLD Lab Routine High-risk in second trimester 08/04/2024 12:37 PM EST SYPHILIS ANTIBODY SCREEN Lab Routine High-risk in second trimester 08/04/2024 12:37 PM EST Health Maintenance Due Date Last Done Comments HPV/Co-Test 2012 Cervical Cancer Screening 09/16/2022 Pap Smear 09/16/2022 09/16/2019, 08/30, 01/14/2018 DTap/Tdap Vaccines (7 - Td or Tdap) 01/02/2024 01/01/2014, 04/24/1986, 10/18/1983, Additional history exists COVID-19 Vaccine ( season) 2024 Mammogram 06/18/2024 06/18/2023, 05/31, 05/02/2022, Additional history exists Depression Screening 02/14/2025 02/15/2024 TSH 05/22/2025 05/22/2024, 02/27, 02/11/2024, Additional history exists Diabetes Screening 01/23/2026 01/23/2023, [...] and 19+ Years) Aged Out No longer jeniferb blayne based on patient's age to complete this [...] cord affecting management of mother High-risk in second trimester Hypothyroidism affecting in second trimester documented in this encounter Additional Health Concerns Active Problems Noted Date Diagnosed Date OB Reminders 04/08/2024 documented as of this encounter Care Teams Systems Development Manager Relationship Specialty Start Date End Date Kelsey Vitale DO [address] [place] [phone] PCP - General Family Medicine 11/02/23 documented as of this encounter
--- OUTSIDE RECORDS SUMMARY | 2024-10-22 12:16 | External Medical Summary ---
Author Name Unknown Address Unknown Organization [id number]:[facility]AT[facility] - [address] [place] [address] [place] [address] Laboratory Report Ordering Provider Test Date Status ANDRA ZENG 08/04/2024 12:37:49 Final Observation Date Value Abnormality Reference (Units ) Status TSH 08/04/2024 12:37:49 0.45 0.27-4.20 (uIU/mL) Final Performing Location [facility]ORY [facility] - [address] [facility] [address]
--- OUTSIDE RECORDS SUMMARY | 2024-10-22 12:16 | External Medical Summary | Summary of Care ---
Author Name Unknown Organization [facility] Address [address] [facility] [address] Phone [phone] Care Team Providers Care Barn And Property Manager Name Role Phone Kelsey Vitale Primary Care Provider [phone] Reason for Visit * Reason Comments Return Visit Encounter Details Date Type Department Care Team (Late st Contact Info) Description 08/04/2024 1:30 PM EST Office Visit Gynecology/Obstetric s Nicole Osorio [address] [place] [address] Analilia Perry CRNP [address] [place] [address] High-risk in second trimester*; Postoperative hypothyroidism; Hypothyroidism affecting in second trimester; Multigravida of advanced maternal age in second trimester; Obesity in , antepartum; At risk for complication of ; Family history of trisomy 13; Marginal insertion of umbilical cord affecting management of mother; Need for osscupopbv-wnmditv-ru rtussis (Tdap) vaccine Allergies Active Allergy Reactions Criticality Noted Date [...] first trimester of . Refer back to [facility] if this occurs. She should continue to have growth assessments with MFM while she is clinically hypothyroid. If patient experiences thyroid goiter or nodule during , we recommend that she be referred to endocrinology for evaluation and management. is not a contraindication to fine needle aspiration but should be handled at the discretion of the navy fighter pilot. If hypothyroidism is poorly controlled, consider weekly NSTs at 32 weeks. For women with a history of treated Graves' disease, third trimester MFM ultrasound should be performed to evaluate for goiter. Please refer immediately back to [facility] for persistent tachycardia on office evaluation as this may also be a symptom of hyperthyroidism. Please check TSI/TRAb after 20 weeks and notify [facility] if positive by sending a message to the [facility] Advanced Practitioner Pool ([id number]). We will alert pediatrics to the need [...] first trimester of . Refer back to [facility] if this occurs. She should continue to have growth assessments with MFM while she is clinically hypothyroid. If patient experiences thyroid goiter or nodule during , we recommend that she be referred to endocrinology for evaluation and management. is not a contraindication to fine needle aspiration but should be handled at the discretion of the navy fighter pilot. If hypothyroidism is poorly controlled, consider weekly NSTs at 32 weeks. For women with a history of treated Graves' disease, third trimester MFM ultrasound should be performed to evaluate for goiter. Please refer immediately back to [facility] for persistent tachycardia on office evaluation as this may also be a symptom of hyperthyroidism. Please check TSI/TRAb after 20 weeks and notify MF if positive by sending a message to the [facility] Advanced Practitioner Pool ([id number]). We will alert pediatrics to the need for possible follow-up. AMA (advanced maternal age) multigravida 35+ Overview (04/16/2024): Age 44YO at [facility] Patient desires NIPT - ordered by [facility]. Patient deferred genetic counseling referral at [...] cffDNA screening, and testing was coordinated by [facility]. Cell-free DNA (cffDNA) screening is a [...] increased risk of congenital/structural anomalies. RECOMMENDATIONS: Recommend [facility] anatomy ultrasound at 19-20 weeks gestation. [...] positive by sending a message to the [facility] Advanced Practitioner Pool ([id number]). Abnormal mammogram 04/17/2022 Overview (04/17/2022): Subcentimeter focal [...] money to get more. Never true 06/05/2024 [place] Depression Scale Answer Date Recorded [place] Depression Scale Total 3 03/24/2024 The thought [...] Sign Reading Time Taken Comments Blood Pressure 124/82 08/04/2024 1:38 PM EST Pulse - - Temperature - - Respiratory Rate - - Oxygen Saturation - - Inhaled Oxygen Concentration - - Weight - - Height - - Body Mass Index - - documented in this encounter Progress Notes * Luz Gray CMA - 08/04/2024 1:38 PM EST 27w5d Denies any concerns TDAP vaccine today * Analilia Perry CRNP - 08/04/2024 1:15 PM EST 27w5d Completing 3rd trimester labs. No ctx, bleeding. Baby moving well, discussed movement counts and when to call w/concerns. Discussed childbirth classes, encouraged to look into pediatricians. Scheduled with MFM for growth scan in a few weeks. Accepts Tdap today. Return in 2 weeks. JAYSON Norman documented in this encounter Plan of Treatment Upcoming Encounters Date Type Department Care Team (Late st Contact Info) Description 08/21/2024 8:45 AM EST Imaging Maternal Medicine Imaging, Omar Osorio [address] [place] [phone] 08/21/2024 10:15 AM EST [facility] [address] [place] [address] Taryn Johnson CRNP [address] [place] [address] Health Maintenance Due Date Last Done Comments [...] 19+ Years) Aged Out No longer jeniferb le based on patient's age to complete [...] affecting management of mother High-risk in second trimester- Primary Postoperative hypothyroidism Postsurgical hypothyroidism Hypothyroidism affecting in second trimester Multigravida of advanced maternal age in second trimester Obesity in , antepartum Obesity complicating , childbirth, or the puerperium, antepartum condition or complication At risk for complication of Family history of trisomy 13 Marginal insertion of umbilical cord affecting management of mother Need for bxnhdolbcb-sgdluaq-awleyzotc (Tdap) vaccine Need for prophylactic vaccination with combined pfehrfykrn-ggsfbwr-wslzmngva (DTP) vaccine documented in this encounter Additional Health Concerns Active Problems Noted Date Diagnosed Date OB Reminders 04/08/2024 documented as of this encounter Care Teams Barn And Property Manager Relationship Specialty Start Date End Date Kelsey Vitale DO [address] [place] [address] PCP - General Family Medicine 11/02/23 documented as of this encounter
--- OUTSIDE RECORDS SUMMARY | 2024-10-22 12:16 | External Medical Summary ---
Author Name Unknown Address Unknown Organization K01:LABORATORY [facility] - [address] [place] [address] Laboratory Report Ordering Provider Test Date Status AZUCENABACKER 08/04/2024 12:37:49 Final Observation Date Value Abnormality Reference (Units ) Status WBC, Total 08/04/2024 12:37:49 9.51 4.00-10.8 0 (K/uL) Final RBC 08/04/2024 12:37:49 3.60 3.85-5.15 (M/uL) Final Hemoglobin 08/04/2024 12:37:49 12.0 12.0-15.3 (g/dL) Final Anemia reflex testing trigge rs on a HGB < 12.0 for Females and HGB < 13.0 for Males in accordance with the WHO Anemia Guidelines
Anemia reflex testing triggers on a HGB < 12.0 for Females and HGB < 13.0 for Males in accordance with the WHO Anemia Guidelines HCT 08/04/2024 12:37:49 37.0 36.0-45.2 (%) Final MCV 08/04/2024 12:37:49 102.8 81.5-97.5 (fL) Final MCH 08/04/2024 12:37:49 33.3 27.0-34.0 (pg) Final MCHC 08/04/2024 12:37:49 32.4 32.0-36.0 (g/dL) Final RDW 08/04/2024 12:37:49 13.4 11.5-15.5 (%) Final Platelets 08/04/2024 12:37:49 246 140-400 (K /uL) Final MPV 08/04/2024 12:37:49 8.9 6.6-11.1 ( fL) Final Nucleated erythrocytes/100 leukocytes [Ratio] in Blood by Automated count 08/04/2024 12:37:49 0 <=0 (/100 WBCs) Fi [facility] Performing Location LAB[facility]ATORY [facility] - [address] [facility] [address]
--- OUTSIDE RECORDS SUMMARY | 2024-10-22 12:16 | External Medical Summary | Summary of Care ---
Author Name Unknown Organization [facility] Address [address] [facility] [address] Phone [phone] Care Team Providers Care Cook Apprentice Pastry Name Role Phone Kelsey Vitale DO Primary Care Provider [phone] Encounter Details Date Type Department Care Team (Late st Contact Info) Description 05/23/2024 Telephone Gynecology/Obstetrics [facility] [address] [facility] [place] [address] Kelsey Arias PA-Nik [address] [facility] [place] [address] Allergies Active Allergy Reactions Criticality Noted Date Comments Sulfa Antibiotics Hives 08/13/2018 documented as of this encounter (statuses as of 05/23/2024) Medications Medication Sig Dispensed Refills Start Date [...] as of this encounter (statuses as of 05/23/2024) Active Problems Problem Noted Date Diagnosed Date [...] Lab Results Component Value Date/Time TSH - SRIER 1.33 03/14/2024 08:14 AM TSH - [facility] [...] be handled at the discretion of the centrifuge separator tender. If hypothyroidism is poorly controlled, consider weekly NSTs at 32 weeks. For women with a history of treated Graves' disease, third trimester MFM ultrasound should be performed to evaluate for goiter. Please refer immediately back to MFM for persistent tachycardia on office evaluation as this may also be a symptom of hyperthyroidism. Please check TSI/TRAb after 20 weeks and notify [facility] if positive by sending a message to the [facility] Advanced Practitioner Pool ([id number]). We will alert pediatrics to the need for possible follow-up. AMA (advanced maternal age) multigravida 35+ Overview: Age 44YO at [facility] Patient desires NIPT - ordered by [facility]. Patient deferred genetic counseling referral at this [...] cffDNA screening, and testing was coordinated by [facility]. Cell-free DNA (cffDNA) screening is a genetic [...] as of this encounter (statuses as of 05/23/2024) Resolved Problems Problem Noted Date Diagnosed Date [...] positive by sending a message to the [facility] Advanced Practitioner Pool ([id number]). Abnormal mammogram 04/17/2022 3 Overview: Subcentimeter focal asymmetry about 8/9 o'clock middle to posterior depth, right breast. Additional imaging is advised. No mammographic evidence of malignancy In the left breast. Further imaging right breast ordered documented as of this encounter (statuses as of 05/23/2024) Immunizations Name Administration Dates Next Due DTaP [...] money to get more. Never true 03/03/2024 [place] Depression Scale Answer Date Recorded [place] Depression Scale Total 3 03/24/2024 The thought [...] Telephone Encounter - Florinda Davies RN - 05/23/2024 12:29 PM EDT ----- Message from Kelsey Arias sent at 05/23/2024 8:01 AM EDT ----- Please inform patient her TSH was normal. Thanks! Kelsey Arias PA-C documented in this encounter Plan of Treatment Upcoming Encounters Date Type Department Care Team (Late st Contact Info) Description 06/13/2024 1:30 PM EST Office Visit [facility] OB Maternal Medicine [facility] Linden Dunlap [address] [place] [address] Dr [address] [place] [id number] Verna Valencia, DO [address] [place] [address] 06/13/2024 1:30 PM EST Imaging Maternal Medicine [facility] Linden Dunlap [address] [place] [address] Dr [address] [place] [address] 06/18/2024 11:15 AM EST Imaging Radiology [facility] [facility] [address] [facility] [place] [address] 06/19/2024 9:15 AM EST Office Visit Gynecology/Obstetrics [facility] [address] [facility] [place] [address] Analilia Perry CRNP [address] [facility] [place] [address] Health Maintenance Due Date Last Done Comments [...] Author Reminders Care Plan OB Reminders No Frances Vanessa documented as of this encounter Medical Devices Not on filedocumented as of this encounter Additional Health Concerns Active Problems Noted Date Diagnosed Date OB Reminders 04/08/2024 documented as of this encounter Care Teams Cook Apprentice Pastry Relationship Specialty Start Date End Date Kelsey Vitale DO [address] [place] [address] PCP - General Family Medicine 11/02/23 documented as of this encounter
--- OUTSIDE RECORDS SUMMARY | 2024-10-22 12:16 | External Medical Summary ---
Author Name Unknown Address Unknown Organization K0G:[facility] [address] [place] [address] Laboratory Report Ordering Provider Test Date Status DENY ZENGBARRERA 08/04/2024 12:37:49 Final Observation Date Value Abnormality Reference (Units ) Status Glucose [Moles/volume] in Serum or Plasma --1 hour post 50 g glucose PO 08/04/2024 12:37:49 98 70-129 (mg/dL) Final Performing Location [facility] [address] [place] [address]
--- OUTSIDE RECORDS SUMMARY | 2024-10-22 12:16 | External Medical Summary ---
Author Name Unknown Address Unknown Organization K01:[facility] - [address] [facility] [place] [address] Laboratory Report Ordering Provider Test Date Status ANDRA ZENG 08/04/2024 12:37:49 Final Observation Date Value Abnormality Reference (Units ) Status SYNC LEUKOCYTES IN BLOOD BY AUTOMATED COUNT 08/04/2024 12:37:49 9.51 4.00-10.80 (K/uL) Final Segs 08/04/2024 12:37:49 76.2 Above high normal 40.0-75.0 (%) Final Lymphs % 08/04/2024 12:37:49 14.7 Below low normal 18.0-42.0 (%) Final Monos 08/04/2024 12:37:49 6.3 1.0-11.0 (%) Final Eosinophils 08/04/2024 12:37:49 0.8 0.0-6.0 (%) Final Basos 08/04/2024 12:37:49 0.4 0.0-2.0 (%) Final Immature Granulocyte, Percent 08/04/2024 12:37:49 1.6 0.0-2.0 (%) Final Absolute Segs 08/04/2024 12:37:49 7.24 1.80-7.70 (K/uL) Final Lymphs, absolute 08/04/2024 12:37:49 1.40 1.00-4.80 (K/ul) Final Monos, Abs 08/04/2024 12:37:49 0.60 0.00-1.10 (K/uL) Final Eos, Abs 08/04/2024 12:37:49 0.08 0.00-0.70 (K/uL) Final Basos, Abs 08/04/2024 12:37:49 0.04 0.00-0.20 (K/uL) Final Immature Granulocytes, Number 08/04/2024 12:37:49 0.15 0.00-0.20 (K/uL) Final Performing Location [facility] - [facility] [place] [address]
--- OUTSIDE RECORDS SUMMARY | 2024-10-22 12:16 | External Medical Summary | Summary of Care ---
Author Name Unknown Organization [facility] Address [address] [facility] [place] [address] Phone [phone] Care Team Providers Care Property Accountant Name Role Phone Kelsey Vitale Primary Care Provider [phone] Reason for Visit * Reason Comments Return Visit Encounter Details Date Type Department Care Team (Late st Contact Info) Description 07/17/2024 8:45 AM EST Office Visit Gynecology/Obstetric s Nicole Osorio [address] [place] [address] Analilia Perry CRNP [address] [place] [address] High-risk in second trimester*; Hypothyroidism affecting in second trimester; Multigravida of advanced maternal age in second trimester; Obesity in , antepartum; At risk for complication of ; Family history of trisomy 13; Marginal insertion of umbilical cord affecting management of mother Allergies Active Allergy Reactions Criticality Noted Date Comments Sulfa Antibiotics Hives 08/13/2018 documented as of this encounter (statuses as of 07/17/2024) Medications 28-0.8 MG Oral Tablet Take by mouth. Active Levothyroxine Sodium 112 MCG Oral Tablet (Levoxyl)Indica tions:Hypothyro idism affecting in first trimester 1 tablet by mouth on Sunday, Sunday, Sunday, Sunday, Sunday; 2 tablets on / (at least 30 min prior to breakfast or other meds) 36 Tablet 6 4 Active documented as of this encounter (statuses as of 07/17/2024) Active Problems Problem Noted Date Diagnosed Date [...] first trimester of . Refer back to [facility] if this occurs. She should continue to have growth assessments with [facility] while she is clinically hypothyroid. If patient experiences thyroid goiter or nodule during , we recommend that she be referred to endocrinology for evaluation and management. is not a contraindication to fine needle aspiration but should be handled at the discretion of the accelerator operator. If hypothyroidism is poorly controlled, consider weekly NSTs at 32 weeks. For women with a history of treated Graves' disease, third trimester MF ultrasound should be performed to evaluate for goiter. Please refer immediately back to [facility] for persistent tachycardia on office evaluation as this may also be a symptom of hyperthyroidism. Please check TSI/TRAb after 20 weeks and notify [facility] if positive by sending a message to the [facility] Advanced Practitioner Pool ([id number]). We will alert pediatrics to the need [...] first trimester of . Refer back to [facility] if this occurs. She should continue to have growth assessments with MFM while she is clinically hypothyroid. If patient experiences thyroid goiter or nodule during , we recommend that she be referred to endocrinology for evaluation and management. is not a contraindication to fine needle aspiration but should be handled at the discretion of the accelerator operator. If hypothyroidism is poorly controlled, consider weekly NSTs at 32 weeks. For women with a history of treated Graves' disease, third trimester MFM ultrasound should be performed to evaluate for goiter. Please refer immediately back to [facility] for persistent tachycardia on office evaluation as this may also be a symptom of hyperthyroidism. Please check TSI/TRAb after 20 weeks and notify MFM if positive by sending a message to the [facility] Advanced Practitioner Pool ([id number]). We will alert pediatrics to the need for possible follow-up. AMA (advanced maternal age) multigravida 35+ Overview (04/16/2024): Age 44YO at [facility] Patient desires NIPT - ordered by [facility]. Patient deferred genetic counseling referral at [...] cffDNA screening, and testing was coordinated by [facility]. Cell-free DNA (cffDNA) screening is a [...] cffDNA screening, and testing was coordinated by [facility]. Cell-free DNA (cffDNA) screening is a [...] as of this encounter (statuses as of 07/17/2024) Resolved Problems Problem Noted Date Diagnosed Date [...] positive by sending a message to the [facility] Advanced Practitioner Pool ([id number]). Abnormal mammogram 04/17/2022 Overview (04/17/2022): Subcentimeter focal asymmetry about 8/9 o'clock middle to posterior depth, right breast. Additional imaging is advised. No mammographic evidence of malignancy In the left breast. Further imaging right breast ordered documented as of this encounter (statuses as of 07/17/2024) Immunizations Name Administration Dates Next Due DTaP [...] money to get more. Never true 06/05/2024 [place] Depression Scale Answer Date Recorded [place] Depression Scale Total 3 03/24/2024 The thought [...] Sign Reading Time Taken Comments Blood Pressure 124/72 07/17/2024 8:42 AM EST Pulse - - Temperature - - Respiratory Rate - - Oxygen Saturation - - Inhaled Oxygen Concentration - - Weight 102.6 kg (226 lb 3.2 oz) 07/17/2024 8:42 AM EST Height - - Body Mass Index 34.39 06/19/2024 9:12 AM EST documented in this encounter Progress Notes * Analilia Perry CRNP - 07/17/2024 8:44 AM EST 25w1d Feels well. No leaking, bleeding, ctx. Feeling baby move. Scheduled for growth scan with MFM next month. 3rd trimester labs, including TSH, with next visit in 2 weeks. Discussed Tdap at 27 weeks. JAYSON Norman * Luz Gray CMA - 07/17/2024 8:42 AM EST 25w1d Denies any concerns. Requesting blood work. documented in this encounter Plan of Treatment Upcoming Encounters Date Type Department Care Team (Late st Contact Info) Description 08/04/2024 11:20 AM EST [facility] [address] [place] [address] [facility] [address] [place] [address] 08/04/2024 1:30 PM EST Office Visit Gynecology/Obstetrics Nicole Osorio [address] [place] [address] BackerAnalilia CRNP [address] [place] [address] 08/21/2024 8:45 AM EST Imaging Maternal Medicine Imaging, Omar Osorio [address] [place] [id number] Scheduled Orders Name Type Priority Associated Diagnoses Orde r Schedule 50-G GESTATIONAL GLUCOSE, 1 HOUR Lab Routine High-risk in second trimester Expected: 07/31/2024 (Approximate), Expires: 07/17/2025 CBC WITH WBC DIFFERENTIAL AND ANEMIA REFLEX WORKUP Lab Routine High-risk in second trimester Expected: 07/31/2024 (Approximate), Expires: 07/17/2025 SYPHILIS ANTIBODY SCREEN WITH REFLEX TO RPR Lab Routine High-risk in second trimester Expected: 07/31/2024 (Approximate), Expires: 07/17/2025 TSH WITH FREE T4 IF INDICATED Lab Routine Hypothyroidism affecting in second trimester Expected: 07/31/2024 (Approximate), Expires: 07/17/2025 Health Maintenance Due Date Last Done Comments [...] of mother High-risk in second trimester- Primary Hypothyroidism affecting in second trimester Multigravida of [...] as of this encounter Care Teams Property Accountant Relationship Specialty Start Date End Date Kelsey Vitale DO [address] [address] PCP - General Family Medicine 11/02/23 documented as of this encounter
--- OUTSIDE RECORDS SUMMARY | 2024-10-22 12:16 | External Medical Summary | Summary of Care ---
Author Name Unknown Organization [facility] Address [address] [facility] [address] Phone [phone] Care Team Providers Care Building Stonecutter Name Role Phone Iam Kelsey Frankel DO Primary Care Provider [phone] Reason for Visit * Reason Onset Date Comments Return Visit Medication Administration 06/19/2024 Flu an d/or Pneumo Inj Encounter Details Date Type Department Care Team (Late st Contact Info) Description 06/19/2024 9:15 AM EST Office Visit Gynecology/Obstetric s Nicole Osorio [address] [place] [address] Analilia Perry CRNP [address] [place] [address] High-risk in second trimester*; Postoperative hypothyroidism; Hypothyroidism affecting in second trimester; Multigravida of advanced maternal age in second trimester; Obesity in , antepartum; At risk for complication of ; Family history of trisomy 13; Marginal insertion of umbilical cord affecting management of mother; Need for prophylactic vaccination and inoculation against influenza Allergies Active Allergy Reactions Criticality Noted Date Comments Sulfa Antibiotics Hives 08/13/2018 documented as of this encounter (statuses as of 06/19/2024) Medications 28-0.8 MG Oral Tablet Take by mouth. Active Levothyroxine Sodium 112 MCG Oral Tablet (Levoxyl)Indica tions:Hypothyro idism affecting in first trimester 1 tablet by mouth on Sunday, Sunday, Sunday, Sunday, Sunday; 2 tablets on / (at least 30 min prior to breakfast or other meds) 36 Tablet 6 4 Active documented as of this encounter (statuses as of 06/19/2024) Active Problems Problem Noted Date Diagnosed Date [...] 150,000) High-risk 09/26/2023 Hypothyroidism affecting 09/26/2023 Overview (03/25/2024): Postoperative hypothyroidism History of Graves disease, was [...] be handled at the discretion of the wad impregnator. If hypothyroidism is poorly controlled, consider weekly NSTs at 32 weeks. For women with a history of treated Graves' disease, third trimester MFM ultrasound should be performed to evaluate for goiter. Please refer immediately back to MF for persistent tachycardia on office evaluation as this may also be a symptom of hyperthyroidism. Please check TSI/TRAb after 20 weeks and notify MFM if positive by sending a message to the [facility] Advanced Practitioner Pool ([id number]). We will alert pediatrics to the need [...] first trimester of . Refer back to [facility] if this occurs. She should continue to have growth assessments with MFM while she is clinically hypothyroid. If patient experiences thyroid goiter or nodule during , we recommend that she be referred to endocrinology for evaluation and management. is not a contraindication to fine needle aspiration but should be handled at the discretion of the wad impregnator. If hypothyroidism is poorly controlled, consider weekly NSTs at 32 weeks. For women with a history of treated Graves' disease, third trimester MFM ultrasound should be performed to evaluate for goiter. Please refer immediately back to [facility] for persistent tachycardia on office evaluation as this may also be a symptom of hyperthyroidism. Please check TSI/TRAb after 20 weeks and notify MF if positive by sending a message to the [facility] Advanced Practitioner Pool ([id number]). We will alert pediatrics to the need for possible follow-up. AMA (advanced maternal age) multigravida 35+ Overview (04/16/2024): Age 44YO at [facility] Patient desires NIPT - ordered by [facility]. Patient deferred genetic counseling referral [...] cffDNA screening, and testing was coordinated by [facility]. Cell-free DNA (cffDNA) screening is [...] increased risk of congenital/structural anomalies. RECOMMENDATIONS: Recommend [facility] anatomy ultrasound at 19-20 weeks [...] cffDNA screening, and testing was coordinated by [facility]. Cell-free DNA (cffDNA) screening is [...] increased risk of congenital/structural anomalies. RECOMMENDATIONS: Recommend [facility] anatomy ultrasound at 19-20 weeks [...] as of this encounter (statuses as of 06/19/2024) Resolved Problems Problem Noted Date Diagnosed Date [...] positive by sending a message to the [facility] Advanced Practitioner Pool ([id number]). Abnormal mammogram 04/17/2022 Overview (04/17/2022): Subcentimeter focal asymmetry about 8/9 o'clock middle to posterior depth, right breast. Additional imaging is advised. No mammographic evidence of malignancy In the left breast. Further imaging right breast ordered documented as of this encounter (statuses as of 06/19/2024) Immunizations Name Administration Dates Next Due DTaP [...] money to get more. Never true 06/05/2024 [place] Depression Scale Answer Date Recorded [place] Depression Scale Total 3 03/24/2024 The thought [...] Sign Reading Time Taken Comments Blood Pressure 118/74 06/19/2024 9:12 AM EST Pulse - - Temperature - - Respiratory Rate - - Oxygen Saturation - - Inhaled Oxygen Concentration - - Weight 102.5 kg (226 lb) 06/19/2024 9:12 AM EST Height 172.7 cm (5' 8") 06/19/2024 9:12 AM EST Body Mass Index 34.36 06/19/2024 9:12 AM EST documented in this encounter Progress Notes * Analilia Perry CRNP - 06/19/2024 9:15 AM EST 21w1d Anatomy scan completed with M. + movement. No cramping or bleeding. Accepts flu shot. 4 week return JAYSON Norman documented in this encounter Nursing Notes * Xochitl Morris LPN - 06/19/2024 9:15 AM EST 21w1d Denies concerns documented in this encounter Plan of Treatment Upcoming Encounters Date Type Department Care Team (Late st Contact Info) Description 07/17/2024 8:45 AM EST Office Visit Gynecology/Obstetrics [facility] [address] [place] [address] Analilia Perry CRNP [address] [place] [address] 08/21/2024 8:45 AM EST Imaging Maternal Medicine Imaging, [facility] [address] [place] [phone] Health Maintenance Due Date Last Done Comments [...] cord affecting management of mother Need for prophylactic vaccination and inoculation against influenza documented in this encounter Additional Health Concerns Active Problems Noted Date Diagnosed Date OB Reminders 04/08/2024 documented as of this encounter Care Teams Building Stonecutter Relationship Specialty Start Date End Date Kelsey Vitale DO [address] [place] [address] PCP - General Family Medicine 11/02/23 documented as of this encounter
--- OUTSIDE RECORDS SUMMARY | 2024-10-22 12:16 | External Medical Summary | Summary of Care ---
Author Name Unknown Organization [facility] Address [address] [facility] [place] [address] Phone [phone] Care Team Providers Care Modeler Name Role Phone Iam Kelsey Marlys MENDEZ Primary Care Provider [phone] Encounter Details Date Type Department Care Team (Late st Contact Info) Description 05/22/2024 Telephone Gynecology/Obstetrics [facility] [address] [place] [address] Miguel A Salomon MD [address] [place] [address] Allergies Active Allergy Reactions Criticality Noted [...] be handled at the discretion of the wire stripper. If hypothyroidism is poorly controlled, consider weekly NSTs at 32 weeks. For women with a history of treated Graves' disease, third trimester MFM ultrasound should be performed to evaluate for goiter. Please refer immediately back to MFM for persistent tachycardia on office evaluation as this may also be a symptom of hyperthyroidism. Please check TSI/TRAb after 20 weeks and notify M if positive by sending a message to the [facility] Advanced Practitioner Pool ([id number]). We will alert pediatrics to the need for possible follow-up. AMA (advanced maternal age) multigravida 35+ Overview: Age 44YO at [facility] Patient desires NIPT - ordered by [facility]. Patient deferred genetic counseling referral at [...] cffDNA screening, and testing was coordinated by [facility]. Cell-free DNA (cffDNA) screening is a [...] positive by sending a message to the [facility] Advanced Practitioner Pool ([id number]). Abnormal mammogram 04/17/2022 3 Overview: Subcentimeter focal [...] money to get more. Never true 03/03/2024 [place] Depression Scale Answer Date Recorded [place] Depression Scale Total 3 03/24/2024 The thought [...] encounter Miscellaneous Notes * Telephone Encounter - Anni Chiang LPN - 05/22/2024 4:27 PM EDT Patient aware * Telephone Encounter - Anni Chiang LPN - 05/22/2024 4:27 PM EDT ----- Message from Miguel A Resendiz MD sent at 05/22/2024 4:22 PM EDT ----- Please let her know US was normal/ unremarkable No more EMELY Thank you documented in this encounter Plan of Treatment Upcoming Encounters Date Type Department Care Team (Late st Contact Info) Description 06/13/2024 1:30 PM EST Office Visit Top Frame Maker OB Maternal Medicine [facility] [place] [address] [place] [address] [address] [place] [address] Verna Valencia, DO [address] [facility] [address] 06/13/2024 1:30 PM EST Imaging Maternal Medicine [facility] [place] [address] [place] [address] [address] [place] [address] 06/18/2024 11:15 AM EST Imaging Radiology [address] [place] [address] 06/19/2024 9:15 AM EST [facility] [address] [place] [address] Backer, JAYSON Kay [address] [place] [address] Health Maintenance Due Date Last Done Comments [...] documented as of this encounter Care Teams Modeler Relationship Specialty Start Date End Date Kelsey Vitale DO [address] [place] [address] PCP - General Family Medicine 11/02/23 documented as of this encounter
--- OUTSIDE RECORDS SUMMARY | 2024-10-22 12:16 | External Medical Summary ---
Author Name Unknown Address Unknown Organization K01[place] [place] [address] [place] [address] Laboratory Report Ordering Provider Test Date Status ANDRA ZENG 08/04/2024 12:37:49 Final Observation Date Value Abnormality Reference (Units ) Status Treponema pallidum Ab [Presence] in Serum by Immunoassay 08/04/2024 12:37:49 Nonreactive Nonreactive Final No serologic evidence of syp hilis. No additional testing clinicially indicated at this time. Consider repeat testing in 2-4 weeks if acute or primary syphilis is suspected. Performing Location [facility] [place] [address] [place] [address]
--- OUTSIDE RECORDS SUMMARY | 2024-10-22 12:16 | External Medical Summary | Summary of Care ---
Author Name Unknown Organization [facility] Address [address] [place] [address] Phone [phone] Care Team Providers Care Payable Processor Name Role Phone Iam, Kelsey Marlys MENDEZ Primary Care Provider [phone] Encounter Details Date Type Department Care Team (Late st Contact Info) Description 06/13/2024 1:30 PM EST Office Visit [facility] Dunlap [address] [place] [address] Dr [address] [place] [address] Verna Valencia, [address] [place] [address] Obesity in , antepartum*; Multigravida of advanced maternal age in second trimester; Encounter for anatomic survey; 20 weeks gestation of ; Hypothyroidism affecting in second trimester; Marginal insertion of umbilical cord affecting management of mother Allergies Active Allergy Reactions Criticality Noted Date Comments Sulfa Antibiotics Hives 08/13/2018 documented as of this encounter (statuses as of 06/13/2024) Medications 28-0.8 MG Oral Tablet Take by mouth. Active Levothyroxine Sodium 112 MCG Oral Tablet (Levoxyl)Indica tions:Hypothyro idism affecting in first trimester 1 tablet by mouth on Sunday, Sunday, Sunday, Sunday, Sunday; 2 tablets on (at least 30 min prior to breakfast or other meds) 36 Tablet 6 4 Active documented as of this encounter (statuses as of 06/13/2024) Active Problems Problem Noted Date Diagnosed Date [...] first trimester of . Refer back to [facility] if this occurs. She should continue to have growth assessments with MFM while she is clinically hypothyroid. If patient experiences thyroid goiter or nodule during , we recommend that she be referred to endocrinology for evaluation and management. is not a contraindication to fine needle aspiration but should be handled at the discretion of the consulting intern. If hypothyroidism is poorly controlled, consider weekly NSTs at 32 weeks. For women with a history of treated Graves' disease, third trimester MFM ultrasound should be performed to evaluate for goiter. Please refer immediately back to [facility] for persistent tachycardia on office evaluation as this may also be a symptom of hyperthyroidism. Please check TSI/TRAb after 20 weeks and notify MF if positive by sending a message to the [facility] Advanced Practitioner Pool ([id number]). We will alert pediatrics to the need [...] first trimester of . Refer back to [facility] if this occurs. She should continue to have growth assessments with MFM while she is clinically hypothyroid. If patient experiences thyroid goiter or nodule during , we recommend that she be referred to endocrinology for evaluation and management. is not a contraindication to fine needle aspiration but should be handled at the discretion of the consulting intern. If hypothyroidism is poorly controlled, consider weekly NSTs at 32 weeks. For women with a history of treated Graves' disease, third trimester MFM ultrasound should be performed to evaluate for goiter. Please refer immediately back to [facility] for persistent tachycardia on office evaluation as this may also be a symptom of hyperthyroidism. Please check TSI/TRAb after 20 weeks and notify MF if positive by sending a message to the [facility] Advanced Practitioner Pool ([id number]). We will alert pediatrics to the need for possible follow-up. AMA (advanced maternal age) multigravida 35+ Overview (04/16/2024): Age 44YO at [facility] Patient desires NIPT - ordered by [facility]. Patient deferred genetic counseling referral at [...] cffDNA screening, and testing was coordinated by [facility]. Cell-free DNA (cffDNA) screening is a [...] cffDNA screening, and testing was coordinated by [facility]. Cell-free DNA (cffDNA) screening is a [...] as of this encounter (statuses as of 06/13/2024) Resolved Problems Problem Noted Date Diagnosed Date [...] positive by sending a message to the [facility] Advanced Practitioner Pool ([id number]). Abnormal mammogram 04/17/2022 Overview (04/17/2022): Subcentimeter focal asymmetry about 8/9 o'clock middle to posterior depth, right breast. Additional imaging is advised. No mammographic evidence of malignancy In the left breast. Further imaging right breast ordered documented as of this encounter (statuses as of 06/13/2024) Immunizations Name Administration Dates Next Due DTaP [...] money to get more. Never true 06/05/2024 [place] Depression Scale Answer Date Recorded [place] Depression Scale Total 3 03/24/2024 The thought [...] this encounter Progress Notes * Verna Valencia, DO - 06/13/2024 2:23 PM EST MATERNAL MEDICINE VISIT Brook Hardin presented today at 20w2d for an ultrasound and follow-up of her high risk . She was seen for the following indications: Problem List Items Addressed This Visit Hypothyroidism affecting TSH Results: Lab Results Component Value Date/Time TSH - [facility] 1.55 05/22/2024 04:07 PM TSH - [facility] 1.33 03/14/2024 08:14 AM TSH - [facility] 0.17 (L) 02/11/2024 12:07 PM TSH - [facility] 1.11 02/25/2020 08:45 AM TSH - [facility] 0.72 04/02/2019 07:24 AM Stable on current levothyroxine. AMA (advanced maternal age) multigravida 35+ Low risk NIPT and msAFP appreciated. Plan to repeat u/s for growth in the third trimester as well as NST at 38 weeks and delivery by EDC reviewed. Obesity in , antepartum - Primary Marginal insertion of umbilical cord affecting management of mother A marginal cord insertion was noted on today's u/s. This finding may be associated with a mildly increased risk for poor OB outcomes, including PTD, pre-eclampsia, and IUGR. Other Visit Diagnoses Encounter for anatomic survey 20 weeks gestation of We reviewed today's ultrasound findings. Follow up with MFM for ultrasound as clinically indicated. (For full details, please refer to ultrasound report provided separately). Ms. Hardin's questions were answered to her satisfaction. She was advised to contact our office or her OB provider for any additional questions regarding her . RECOMMENDATIONS: Recommend follow up ultrasound with MFM in 10 weeks for growth secondary to above indications. Thank you for allowing us to participate in the care of this patient. Please call with any questions. Verna Valencia DO 06/13/2024 2:23 PM documented in this encounter Miscellaneous Notes * Assessment & Plan Note - Verna Valencia DO - 06/13/2024 2:23 PM EST Associated Problem(s): Marginal insertion of umbilical cord affecting management of mother A marginal cord insertion was noted on today's u/s. This finding may be associated with a mildly increased risk for poor OB outcomes, including PTD, pre-eclampsia, and IUGR. * Assessment & Plan Note - Verna Valencia DO - 06/13/2024 1:26 PM EST Associated Problem(s): AMA (advanced maternal age) multigravida 35+ Low risk NIPT and msAFP appreciated. Plan to repeat u/s for growth in the third trimester as well as NST at 38 weeks and delivery by EDC reviewed. * Assessment & Plan Note - Verna Valencia DO - 06/13/2024 1:25 PM EST Associated Problem(s): Hypothyroidism affecting TSH Results: Lab Results Component Value Date/Time TSH - [facility] 1.55 05/22/2024 04:07 PM TSH - [facility] 1.33 03/14/2024 08:14 AM TSH - [facility] 0.17 (L) 02/11/2024 12:07 PM TSH - [facility] 1.11 02/25/2020 08:45 AM TSH - [facility] 0.72 04/02/2019 07:24 AM Stable on current levothyroxine. documented in this encounter Plan of Treatment Upcoming Encounters Date Type Department Care Team (Late st Contact Info) Description 06/19/2024 9:15 AM EST Office Visit Gynecology/Obstetrics [facility] Osorio [address] [place] [address] Backer, JAYSON Kay [address] [place] [address] 08/21/2024 8:45 AM EST Imaging Maternal Medicine Imaging, Omar Osorio [address] [place] [address] Scheduled Orders Name Type Priority Associated Diagnoses Orde r Schedule MFM US PREG FOLLOW UP EACH FETUS Medical Imaging Routine Obesity in , antepartum Multigravida of advanced maternal age in second trimester Encounter for anatomic survey 20 weeks gestation of Hypothyroidism affecting in second trimester Marginal insertion of umbilical cord affecting management of mother 5 Occurrences starting 06/13/2024 until 11/11/2024 Health Maintenance Due Date Last Done Comments [...] Depression Screening 02/14/2025 02/15/2024 TSH 05/22/2025 05/22/2024, 08/12/2023, 02/11/2024, Additional history exists Diabetes Screening 01/23/2026 [...] documented as of this encounter Care Teams Payable Processor Relationship Specialty Start Date End Date Kelsey Vitale DO [address] [place] [address] PCP - General Family Medicine 11/02/23 documented as of this encounter
--- OUTSIDE RECORDS SUMMARY | 2024-10-22 12:16 | External Medical Summary | Summary of Care ---
Author Name Unknown Organization [facility] Address [address] [facility] [address] Phone [phone] Care Team Providers Care Manager Switch Name Role Phone Kelsey Vitale DO Primary Care Provider [phone] Encounter Details Date Type Department Care Team (Late st Contact Info) Description 05/23/2024 Telephone Gynecology/Obstetrics [facility] [address] [place] [address] Kelsey Arias PA-C [address] [place] [address] Allergies Active Allergy Reactions Criticality [...] be handled at the discretion of the order processor. If hypothyroidism is poorly controlled, consider weekly [...] positive by sending a message to the [facility] Advanced Practitioner Pool ([id number]). We will alert pediatrics to the need for possible follow-up. AMA (advanced maternal age) multigravida 35+ Overview: Age 44YO at [facility] Patient desires NIPT - ordered by [facility]. Patient deferred genetic counseling referral at [...] cffDNA screening, and testing was coordinated by [facility]. Cell-free DNA (cffDNA) screening is a [...] positive by sending a message to the [facility] Advanced Practitioner Pool ([id number]). Abnormal mammogram 04/17/2022 3 Overview: Subcentimeter focal [...] money to get more. Never true 03/03/2024 [place] Depression Scale Answer Date Recorded [place] Depression Scale Total 3 03/24/2024 The thought [...] Telephone Encounter - Anni Chiang LPN - 05/23/2024 8:38 AM EDT Communication sent * Telephone Encounter - Anni Chiang LPN - 05/23/2024 8:32 AM EDT ----- Message from Kelsey Arias sent at 05/23/2024 8:01 AM EDT ----- Please inform patient her TSH was normal. Thanks! Kelsey Arias PA-C documented in this encounter Plan of Treatment Upcoming Encounters Date Type Department Care Team (Late st Contact Info) Description 06/13/2024 1:30 PM EST Office Visit Food Preparation Supervisor OB Maternal Medicine [facility] Linden Dunlap [address] [place] [address] Dr [address] [place] [address] Verna Valencia, DO [address] [facility] [place] [address] 06/13/2024 1:30 PM EST Imaging Maternal Medicine [facility] Linden Dunlap [address] [place] [address] [address] [place] [address] 06/18/2024 11:15 AM EST Imaging Radiology [address] [place] [address] 06/19/2024 9:15 AM EST Office Visit Gynecology/Obstetrics Nicole Osorio [address] [place] [address] Backer, JAYSON Kay [address] [place] [address] Health Maintenance Due Date Last Done Comments [...] documented as of this encounter Care Teams Manager Switch Relationship Specialty Start Date End Date Kelsey Vitale DO [address] [place] [address] PCP - General Family Medicine 11/02/23 documented as of this encounter
--- OUTSIDE RECORDS SUMMARY | 2024-10-22 12:16 | External Medical Summary | Summary of Care ---
Author Name Unknown Organization [facility] Address [address] [facility] [address] Phone [phone] Care Team Providers Care Hob Grinder Name Role Phone Iam Kelsey Frankel DO Primary Care Provider [phone] Reason for Visit * Reason Onset Date Comments Return Visit Medication Administration 06/19/2024 Flu an d/or Pneumo Inj Encounter Details Date Type Department Care Team (Late st Contact Info) Description 06/19/2024 9:15 AM EST Office Visit Gynecology/Obstetric s Nicole Osorio [address] [place] [address] Analilia Perry CRNP [address] [place] [address] High-risk in second trimester*; Postoperative hypothyroidism; Hypothyroidism [...] be handled at the discretion of the cell plasterer. If hypothyroidism is poorly controlled, consider weekly [...] positive by sending a message to the [facility] Advanced Practitioner Pool ([id number]). We will alert pediatrics to the need [...] first trimester of . Refer back to [facility] if this occurs. She should continue to have growth assessments with MFM while she is clinically hypothyroid. If patient experiences thyroid goiter or nodule during , we recommend that she be referred to endocrinology for evaluation and management. is not a contraindication to fine needle aspiration but should be handled at the discretion of the cell plasterer. If hypothyroidism is poorly controlled, consider weekly NSTs at 32 weeks. For women with a history of treated Graves' disease, third trimester MFM ultrasound should be performed to evaluate for goiter. Please refer immediately back to [facility] for persistent tachycardia on office evaluation as this may also be a symptom of hyperthyroidism. Please check TSI/TRAb after 20 weeks and notify MF if positive by sending a message to the [facility] Advanced Practitioner Pool ([id number]). We will alert pediatrics to the need for possible follow-up. AMA (advanced maternal age) multigravida 35+ Overview (04/16/2024): Age 44YO at [facility] Patient desires NIPT - ordered by [facility]. Patient deferred genetic counseling referral at [...] cffDNA screening, and testing was coordinated by [facility]. Cell-free DNA (cffDNA) screening is a [...] increased risk of congenital/structural anomalies. RECOMMENDATIONS: Recommend [facility] anatomy ultrasound at 19-20 weeks gestation. [...] cffDNA screening, and testing was coordinated by [facility]. Cell-free DNA (cffDNA) screening is a [...] increased risk of congenital/structural anomalies. RECOMMENDATIONS: Recommend [facility] anatomy ultrasound at 19-20 weeks gestation. [...] positive by sending a message to the [facility] Advanced Practitioner Pool ([id number]). Abnormal mammogram 04/17/2022 Overview (04/17/2022): Subcentimeter focal [...] money to get more. Never true 06/05/2024 [place] Depression Scale Answer Date Recorded [place] Depression Scale Total 3 03/24/2024 The thought [...] Notes * Xochitl Morris LPN - 06/19/2024 9:44 AM EST Patient here for tdap injection. Patient doing well no complaints. Injection given IM as ordered. Patient tolerated well. Patient to follow up as directed. Patient instructed to call if any complications. Patient verbalized understanding of instructions given and her follow up appt for NURYS Injection site: Left Deltoid Medication Source: Dispensed stock medication * Xochitl Morris LPN - 06/19/2024 9:15 AM EST 21w1d Denies concerns documented in this encounter Plan of Treatment Upcoming Encounters Date Type Department Care Team (Late st Contact Info) Description 07/17/2024 8:45 AM EST Office Visit Gynecology/Obstetrics [facility] Osorio [address] [place] [address] Analilia Perry CRNP [address] [place] [address] 08/21/2024 8:45 AM EST Imaging Maternal Medicine Imaging, Omar Osorio [address] [place] [address] Health Maintenance Due Date Last Done Comments [...] documented as of this encounter Care Teams Hob Grinder Relationship Specialty Start Date End Date Kelsey Vitale DO [address] [place] [address] PCP - General Family Medicine 11/02/23 documented as of this encounter
--- OUTSIDE RECORDS SUMMARY | 2024-10-22 12:17 | External Medical Summary | Summary of Care ---
Author Name Unknown Organization [facility] Address [address] [facility] [address] Phone [phone] Care Team Providers Care Language Arts Teacher Name Role Phone Kelsey Vitale DO Primary Care Provider [phone] Encounter Details Date Type Department Care Team (Late st Contact Info) Description 04/29/2024 Telephone Gynecology/Obstetrics [facility] [address] [place] [address] Cullen Stanton MD [address] [place] [address] Allergies Active Allergy Reactions Criticality Noted Date Comments Sulfa Antibiotics Hives 08/13/2018 documented as of this encounter (statuses as of 04/29/2024) Medications Medication Sig Dispensed Refills Start Date End Date Status 28-0.8 MG Oral Tablet Take by mouth. Active Cephalexin 500 MG Oral Capsule (Keflex) TAKE 1 CAPSULE BY MOUTH THREE TIMES A DAY FOR 7 DAYS 04/22/2024 Active Levothyroxine Sodium 112 MCG Oral Tablet (Levoxyl)Indications :Hypothyroidism affecting in first trimester 1 tablet by mouth on Sunday, Sunday, Sunday, Sunday, Sunday; 2 tablets on /Th (at least 30 min prior to breakfast or other meds) 36 Tablet 6 04/25/2024 Active documented as of this encounter (statuses as of 04/29/2024) Active Problems Problem Noted Date Diagnosed Date [...] be handled at the discretion of the typing teacher. If hypothyroidism is poorly controlled, consider weekly [...] positive by sending a message to the [facility] Advanced Practitioner Pool ([id number]). We will alert pediatrics to the need for possible follow-up. AMA (advanced maternal age) multigravida 35+ Overview: Age 44YO at [facility] Patient desires NIPT - ordered by [facility]. Patient deferred genetic counseling referral at [...] cffDNA screening, and testing was coordinated by [facility]. Cell-free DNA (cffDNA) screening is a [...] as of this encounter (statuses as of 04/29/2024) Resolved Problems Problem Noted Date Diagnosed Date [...] positive by sending a message to the [facility] Advanced Practitioner Pool ([id number]). Abnormal mammogram 04/17/2022 3 Overview: Subcentimeter focal asymmetry about 8/9 o'clock middle to posterior depth, right breast. Additional imaging is advised. No mammographic evidence of malignancy In the left breast. Further imaging right breast ordered documented as of this encounter (statuses as of 04/29/2024) Immunizations Name Administration Dates Next Due DTaP [...] money to get more. Never true 03/03/2024 [place] Depression Scale Answer Date Recorded [place] Depression Scale Total 3 03/24/2024 The thought [...] Telephone Encounter - Heaven Ching LPN - 04/29/2024 1:39 PM EDT I spoke to dr stanton and he said no concerns just to monitor vb. If bleeding becomes heavier to callus back. Spoke with pt she verbalized understanding * Telephone Encounter - Heaven Ching LPN - 04/29/2024 1:25 PM EDT Pt called in with concerns of having dark brown discharge. Pt denies any recent intercourse. Pt didgo to er last week for vb and everything was WINL at that time with US. I let pt know I will discuss with workers compensation claims analyst provider Dr Stanton and call pt back. documented in this encounter Plan of Treatment Upcoming Encounters Date Type Department Care Team (Late st Contact Info) Description 05/22/2024 3:45 PM EDT Office Visit Gynecology/Obstetrics [facility] [address] [facility] [place] [address] Kelsey Arias PA-C [address] [place] [address] 06/13/2024 1:30 PM EST Office Visit [facility] Dunlap [address] [place] [address] [address] [place] [address] Verna Valencia, DO [address] [facility] [place] [address] 06/13/2024 1:30 PM EST [facility] Dunlap [address] [place] [address] [address] [place] [address] 06/18/2024 11:15 AM EST Imaging Radiology [address], [address] [place] [address] Health Maintenance Due Date Last Done Comments [...] documented as of this encounter Care Teams Language Arts Teacher Relationship Specialty Start Date End Date Kelsey Vitale DO [address] [place] [address] PCP - General Family Medicine 11/02/23 documented as of this encounter
--- OUTSIDE RECORDS SUMMARY | 2024-10-22 12:17 | External Medical Summary ---
Author Name Unknown Address Unknown Organization : Laboratory Report Ordering Provider Test Date Status BK RICHARDSON 05/22/2024 16:07:33 Final Observation Date Value Abnormality Reference (Units ) Status INTERPRETATION 05/22/2024 16:07:33 SEE BELOW Final Screen negative for open NTD RISK FOR ONTD 05/22/2024 16:07:33 <1:5000 Final CALC'D GESTATIONAL AGE 1005/22/2024 16:07:33 17.1 Final AFP, SERUM 05/22/2024 16:07:33 36.5 (ng/mL) Final AFP MOM 05/22/2024 16:07:33 1.16 Final Reference Range:
NTD <2 .50
IDD <1.90
TWINS <4.00
TWINS IDD <3.50
TRIPLETS <4.50
The AFP test result indicates that this patient is
screen negative for open NTD. It should be noted
that normal test results can never guarantee the
of a normal baby and that 2-3% of newborns
have some type of physical or mental defect, many
of which are undetectable through any known
diagnostic technique.
This is a screening test, not a diagnostic test.
This risk assessment report is based in part on
demographic data provided by the ordering
physician. Please notify the laboratory promptly
if any data are incorrect. For assistance with
recalculations, please call your local [facility] laboratory. For assistance with
interpretation of these results, please contact
your Local [facility] genetic counselor or
call [phone] ([phone]).
Interpretive Cutoffs
Screen Positive for Open NTD:
> or = 2.50 adjusted MOM
> or = 1.90 adjusted MOM for insulin- dependent diabetics
> or = 4.00 adjusted MOM for twins
> or = 3.50 adjusted MOM for twins insulin-dependent diabetics
> or = 4.50 adjusted MOM for triplets
For additional information, please refer to
[email or web address]/faq/[email or web address]
(This link is being provided for
informational/educational purposes only.) DATE OF 05/22/2024 16:07:33 1980 Final COLLECTION DATE 05/22/2024 16:07:33 05/22/2024 Final MATERNAL WEIGHT 05/22/2024 16:07:33 214 (lbs ) Final EST'D DATE OF DELIVERY 05/22/2024 16:07:33 10/29/2024 Final [facility] DETERMINED BY 05/22/2024 16:07:33 LMP Final MOTHER'S ETHNIC ORIGIN 05/22/2024 16:07:33 WHITE Final NUMBER OF FETUSES 05/22/2024 16:07:33 1 Final INSULIN DEPEND DIABETIC 05/22/2024 16:07:33 NO Final REPEAT SPECIMEN 05/22/2024 16:07:33 NO Final HX OF NEURAL TUBE DEFECTS 05/22/2024 16:07:33 NO Final PREV DOWN SYND 05/22/2024 16:07:33 NO Final DONOR EGG 05/22/2024 16:07:33 NO Final DONOR AGE: EGG RETRIEVAL 05/22/2024 16:07:33 NOT GIVEN Final Test performed by [facility]
[address],
[place] [address]

Director Social Welfare: Kalpana Hanks MD,PHD,PRIMO
Test Rep[facility] by [facility],
[facility],
[address] [place], [place]
Colin Rosales M.D., Ph.D., Director of Laboratories
, CLIA [id number] Performing Location
--- OUTSIDE RECORDS SUMMARY | 2024-10-22 12:17 | External Medical Summary | Summary of Care ---
Author Name Unknown Organization [facility] Address [address] [facility] [address] Phone [phone] Care Team Providers Care Tab Machine Operator Name Role Phone Kelsey Vitale DO Primary Care Provider [phone] Reason for Visit * Reason Comments Return Visit Encounter Details Date Type Department Care Team (Late st Contact Info) Description 05/22/2024 3:45 PM EDT Office Visit Gynecology/Obstetric [facility] [address] [facility] [place] [address] Kelsey Arias PA-C [address] [facility] [place] [id number] High-risk in second trimester*; Multigravida of advanced maternal age in second trimester; Obesity in , antepartum; Hypothyroidism affecting in second trimester; Postoperative hypothyroidism; Vaginal bleeding in ; Family history of trisomy 13; At risk for complication of Allergies Active Allergy Reactions Criticality Noted Date Comments Sulfa Antibiotics Hives 08/13/2018 documented as of this encounter (statuses as of 05/22/2024) Medications Medication Sig Dispensed Refills Start Date End Date Status 28-0.8 MG Oral Tablet Take by mouth. Active Levothyroxine Sodium 112 MCG Oral Tablet (Levoxyl)Indicati ons:Hypothyroidis m affecting in first trimester 1 tablet by mouth on Sunday, Sunday, Sunday, Sunday, Sunday; 2 tablets on / (at least 30 min prior to breakfast or other meds) 36 Tablet 6 04/25/2024 Active Cephalexin 500 MG Oral Capsule (Keflex) TAKE 1 CAPSULE BY MOUTH THREE TIMES A DAY FOR 7 DAYS 04/22/2024 05/22/2024 Discontinued (Medication List Clean Up) documented as of this encounter (statuses as [...] first trimester of . Refer back to [facility] if this occurs. She should continue to have growth assessments with [facility] while she is clinically hypothyroid. If patient experiences thyroid goiter or nodule during , we recommend that she be referred to endocrinology for evaluation and management. is not a contraindication to fine needle aspiration but should be handled at the discretion of the fan installer. If hypothyroidism is poorly controlled, consider weekly NSTs at 32 weeks. For women with a history of treated Graves' disease, third trimester MF ultrasound should be performed to evaluate for goiter. Please refer immediately back to [facility] for persistent tachycardia on office evaluation as this may also be a symptom of hyperthyroidism. Please check TSI/TRAb after 20 weeks and notify [facility] if positive by sending a message to the [facility] Advanced Practitioner Pool ([id number]). We will alert pediatrics to the need for possible follow-up. AMA (advanced maternal age) multigravida 35+ Overview: Age 44YO at [facility] Patient desires NIPT - ordered by [facility]. Patient deferred genetic counseling referral at this [...] cffDNA screening, and testing was coordinated by [facility]. Cell-free DNA (cffDNA) screening is a genetic [...] positive by sending a message to the [facility] Advanced Practitioner Pool ([id number]). Abnormal mammogram 04/17/2022 Overview: Subcentimeter focal asymmetry [...] money to get more. Never true 03/03/2024 Ages [place] Depression Scale Answer Date Recorded Ages [place] Depression Scale Total 3 03/24/2024 The thought [...] Reading Time Taken Comments Blood Pressure 124/72 05/22/2024 3:35 PM EDT Pulse - - Temperature - - Respiratory Rate - - Oxygen Saturation - - Inhaled Oxygen Concentration - - Weight 97.5 kg (215 lb) 05/22/2024 3:35 PM EDT Height - - Body Mass Index 32.69 03/24/2024 2:24 PM EDT documented in this encounter Progress Notes * Maria Del Carmen Seay LPN - 05/22/2024 3:35 PM EDT 17w1d Denies vaginal bleeding/rom + movement Round ligament pain * Kelsey Arias PA-C - 05/22/2024 3:21 PM EDT Brook Hardin is a 44 year old female here for her routine OB appointment at 17w1d Her Estimated Date of Delivery: 10/29/24 Had U/S today to follow-up on subchorionic hemorrhage. Final report not in at time of visit - review of PACS images states EMELY no longer visualized. Will follow-up with final report. She has not had any vaginal bleeding for the last 2 weeks. Has been evaluated in the ED twice for vaginal bleeding in . Has not had any bleeding or discharge for the last 2 weeks. Is having some round ligament pain worse after prolonged sitting. Also had 1 episode of vomiting secondary to acid reflux. Nothing since. Having some infrequent headaches that are not bothersome or worsening. REVIEW OF SYSTEMS She affirms movement. Denies vaginal bleeding, LOF, contractions. PHYSICAL EXAM Filed Vitals: 05/22/24 1535 BP: 124/72 Weight: 97.5 kg (215 lb) +FHT 140s ASSESSMENT/PLAN High-risk in second trimester (Primary) - MATERNAL SERUM AFP; Future; Expected date: 05/22/2024 Multigravida of advanced maternal age in second trimester Obesity in , antepartum Hypothyroidism affecting in second trimester - TSH WITH FREE T4 IF INDICATED; Future; Expected date: 05/22/2024 Postoperative hypothyroidism Vaginal bleeding in - Bleeding resolved as of today. Precautions given. Family history of trisomy 13 At risk for complication of Supervision of - anatomy u/s due in 4 weeks. Patient is scheduled with MFM 06/13. - discussed MSAFP and role in detecting open neural tube defects. Patient desires. - encouraged cushion at work for round ligament pain. Can try belly band/light stretching. - discussed OTC treatment for acid reflux. To call if ineffective. RTO in 4 weeks Kelsey Arias PA-C 05/22/2024 documented in this encounter Plan of Treatment Upcoming Encounters Date Type Department Care Team (Late st Contact Info) Description 06/13/2024 1:30 PM EST Office Visit Composition Instructor OB Maternal Medicine [facility] [place] [address] [place] [address] [address] [place] [id number] Verna Valencia, DO [address] [facility] [address] 06/13/2024 1:30 PM EST Imaging Maternal Medicine [facility] Linden Dunlap [address] [place] [address] [address] [place] [address] 06/18/2024 11:15 AM EST Imaging Radiology [facility]st [facility] [place] [address] [place] [address] 06/19/2024 9:15 AM EST Office Visit Gynecology/Obstetrics [facility] [address] [place] [address] Analilia Perry CRNP [address] [place] [address] Pending Results Name Type Priority Associated Diagnoses Date /Time TSH WITH FREE T4 IF INDICATED Lab Routine Hypothyroidism affecting in second trimester 05/22/2024 4:07 PM EDT MATERNAL SERUM AFP Lab Routine High-risk in second trimester 05/22/2024 4:07 PM EDT Scheduled Orders Name Type Priority Associated Diagnoses Orde r Schedule TSH WITH FREE T4 IF INDICATED Lab Routine Hypothyroidism affecting in second trimester Expected: 05/22/2024, Expires: 05/22/2025 MATERNAL SERUM AFP Lab Routine High-risk in second trimester Expected: 05/22/2024 (Approximate), Expires: 05/22/2025 Health Maintenance Due Date Last Done Comments [...] as of this encounter Visit Diagnoses Diagnosis High-risk in second trimester- Primary Multigravida of advanced maternal age in second trimester Obesity in , antepartum Obesity complicating , childbirth, or the puerperium, antepartum condition or complication Hypothyroidism affecting in second trimester Postoperative hypothyroidism Postsurgical hypothyroidism Vaginal bleeding in Unspecified antepartum hemorrhage, unspecified as to episode of care Family history of trisomy 13 At risk for complication of documented in this encounter Additional Health Concerns Active Problems Noted Date Diagnosed Date OB Reminders 04/08/2024 documented as of this encounter Care Teams Tab Machine Operator Relationship Specialty Start Date End Date Kelsey Vitale DO [address] [place] [address] PCP - General Family Medicine 11/02/23 documented as of this encounter
--- OUTSIDE RECORDS SUMMARY | 2024-10-22 12:17 | External Medical Summary | Summary of Care ---
Author Name Unknown Organization [facility] Address [address] [facility] [place] [address] Phone [phone] Care Team Providers Care Hydroblaster Name Role Phone Kelsey Vitale DO Primary Care Provider [phone] Encounter Details Date Type Department Care Team (Late st Contact Info) Description 05/10/2024 Result Scan Unspecified Department <No scans attached> Allergies Active Allergy Reactions Criticality Noted Date Comments Sulfa Antibiotics Hives 08/13/2018 documented as of this encounter (statuses as of 05/12/2024) Medications Medication Sig Dispensed Refills Start Date [...] as of this encounter (statuses as of 05/12/2024) Active Problems Problem Noted Date Diagnosed Date [...] be handled at the discretion of the hand bobbin cleaner. If hypothyroidism is poorly controlled, consider weekly [...] the [facility] Advanced Practitioner Pool ([id number]). We will alert pediatrics to the need [...] as of this encounter (statuses as of 05/12/2024) Resolved Problems Problem Noted Date Diagnosed Date [...] the [facility] Advanced Practitioner Pool ([id number]). Abnormal mammogram 04/17/2022 3 Overview: Subcentimeter focal asymmetry about 8/9 o'clock middle to posterior depth, right breast. Additional imaging is advised. No mammographic evidence of malignancy In the left breast. Further imaging right breast ordered documented as of this encounter (statuses as of 05/12/2024) Immunizations Name Administration Dates Next Due DTaP [...] money to get more. Never true 03/03/2024 [place] Depression Scale Answer Date Recorded [place] Depression Scale Total 3 03/24/2024 The thought [...] No 03/03/2024 Are you (or your family) tiaar eless or worried that you might be [...] 05/22/2024 3:45 PM EDT Office Visit Gynecology/Obstetrics [facility] [address] [facility] [place] [address] Kelsey Arias PA-C [address] [facility] [place] [address] 06/13/2024 1:30 PM EST Office Visit Manufacturing Supervisor 2Nd Shift OB Maternal Medicine [facility] Lind[place]lap [address] [place] [address] [address] [place] [address] Verna Valencia, [address] [place] [address] 06/13/2024 1:30 PM EST Imaging Maternal Medicine [facility] Linden Dunlap [address] [place] [address] [address] [place] [address] 06/18/2024 11:15 AM EST Imaging Radiology [facility] 1st [facility] [place] 132 [facility] [place] [address] Health Maintenance Due Date Last Done Comments [...] Procedure Name Priority Date/Time Associated Diagnosis Comments RADIOLOGY SCANNED RESULT 05/10/2024 documented in this encounter Results * RADIOLOGY SCANNED RESULT (05/10/2024) 05/10/2024 No Physician Data Unknown DIAGNOSTIC RAD IOLOGY SERVICES documented in this encounter Additional Health Concerns Active Problems Noted Date Diagnosed Date OB Reminders 04/08/2024 documented as of this encounter Care Teams Hydroblaster Relationship Specialty Start Date End Date Kelsey Vitale DO [address] [place] [address] PCP - General Family Medicine 11/02/23 documented as of this encounter
--- OUTSIDE RECORDS SUMMARY | 2024-10-22 12:17 | External Medical Summary | Summary of Care ---
Author Name Unknown Organization [facility] Address [address] [facility] [address] Phone [phone] Care Team Providers Care Self Sealing Fuel Tank Builder Name Role Phone Kelsey Vitale DO Primary Care Provider [phone] Reason for Visit * Reason Comments Return Visit Encounter Details Date Type Department Care Team (Late st Contact Info) Description 04/25/2024 11:45 AM EDT Office Visit Gynecology/Obstetric s [facility] [address] [place] [address] Analilia Perry CRNP [address] [facility] [place] [address] High-risk in first trimester*; Postoperative hypothyroidism; Hypothyroidism affecting in first trimester; Multigravida of advanced maternal age in first trimester; Obesity in , antepartum; At risk for complication of ; Family history of trisomy 13 Allergies Active Allergy Reactions Criticality Noted Date Comments Sulfa Antibiotics Hives 08/13/2018 documented as of this encounter (statuses as of 04/25/2024) Medications Medication Sig Dispensed Refills Start Date End Date Status 28-0.8 MG Oral Tablet Take by mouth. Active Cephalexin 500 MG Oral Capsule (Keflex) TAKE 1 CAPSULE BY MOUTH THREE TIMES A DAY FOR 7 DAYS 04/22/2024 Active Levothyroxine Sodium 112 MCG Oral Tablet (Levoxyl)Indicat ions:Hypothyroid ism affecting in first trimester 1 tablet by mouth on Sunday, Sunday, Sunday, Sunday, Sunday; 2 tablets on / (at least 30 min prior to breakfast or other meds) 36 Tablet 6 04/25/2024 Active Triamcinolone Acetonide 0.1 % External Cream (Aristocort)Reyna cations:Rash and nonspecific skin eruption APPLY TO AFFECTED AREA TWICE A DAY 15 g 4 08/28/2023 4 Discontinued(Med ication List Clean Up) Levothyroxine Sodium 112 MCG Oral Tablet (Levoxyl) Take 1 Tablet by mouth in the morning. (at least 30 min prior to breakfast or other meds). 90 Tablet 1 02/12/2024 4 Discontinued documented as of this encounter (statuses as of 04/25/2024) Active Problems Problem Noted Date Diagnosed Date [...] first trimester of . Refer back to [facility] if this occurs. She should continue to have growth assessments with [facility] while she is clinically hypothyroid. If patient experiences thyroid goiter or nodule during , we recommend that she be referred to endocrinology for evaluation and management. is not a contraindication to fine needle aspiration but should be handled at the discretion of the fry cook. If hypothyroidism is poorly controlled, consider weekly NSTs at 32 weeks. For women with a history of treated Graves' disease, third trimester MFM ultrasound should be performed to evaluate for goiter. Please refer immediately back to [facility] for persistent tachycardia on office evaluation as this may also be a symptom of hyperthyroidism. Please check TSI/TRAb after 20 weeks and notify [facility] if positive by sending a message to the [facility] Advanced Practitioner Pool ([id number]). We will alert pediatrics to the need for possible follow-up. AMA (advanced maternal age) multigravida 35+ Overview: Age 44YO at [place] Patient desires NIPT - ordered by [facility]. Patient deferred genetic counseling referral at [...] screening, and testing was coordinated by [facility]. Cell-free DNA (cffDNA) screening is a [...] as of this encounter (statuses as of 04/25/2024) Resolved Problems Problem Noted Date Diagnosed Date [...] by sending a message to the [facility] Advanced Practitioner Pool ([id number]). Abnormal mammogram 04/17/2022 3 Overview: Subcentimeter focal asymmetry about 8/9 o'clock middle to posterior depth, right breast. Additional imaging is advised. No mammographic evidence of malignancy In the left breast. Further imaging right breast ordered documented as of this encounter (statuses as of 04/25/2024) Immunizations Name Administration Dates Next Due DTaP [...] money to get more. Never true 03/03/2024 [place] Depression Scale Answer Date Recorded [place] Depression Scale Total 3 03/24/2024 The thought [...] Sign Reading Time Taken Comments Blood Pressure 124/78 04/25/2024 11:29 AM EDT Pulse - - Temperature - - Respiratory Rate - - Oxygen Saturation - - Inhaled Oxygen Concentration - - Weight 98.4 kg (217 lb) 04/25/2024 11:29 AM EDT Height - - Body Mass Index 32.99 03/24/2024 2:24 PM EDT documented in this encounter Progress Notes * Analilia Perry CRNP - 04/25/2024 11:31 AM EDT 13w2d Patient was in the ER on 04/22 with a gush of blood; normal ultrasound findings with normal FHR. Shehas not had any further bleeding nor cramping. TSH in the ER was >3. Recommend starting 2 tabs of levothyroxine on T/Th, continue 1 tab on the other days. Will recheck TSH in 4 weeks. Encouraged to start baby ASA as recommended by MFM. Low risk NIPT noted. She is scheduled with MFM. 4 week return JAYSON Norman documented in this encounter Plan of Treatment Upcoming Encounters Date Type Department Care Team (Late st Contact Info) Description 05/22/2024 3:45 PM EDT Office Visit Gynecology/Obstetrics [facility] [address] [facility] [place] [address] Kelsey Arias PA-C [address] [facility] [place] [address] 06/13/2024 1:30 PM EST Office Visit Manager Heavy Equipment OB Maternal Medicine [facility] Linden Dunlap [address] [place] [address] [address] [place] [address] Verna Valencia, DO [address] [place] [address] 06/13/2024 1:30 PM EST Imaging Maternal Medicine [facility] Linden Dunlap [address] [place] [address] [address] [place] [address] 06/18/2024 11:15 AM EST Imaging Radiology [facility] 1st [facility] [address] [facility] [place] [address] Health Maintenance Due Date Last Done Comments [...] Patient-Stated? Author Reminders Care Plan OB Reminders Frances Nichols documented as of this encounter Medical Devices Not on filedocumented as of this encounter Visit Diagnoses Diagnosis High-risk in first trimester- Primary Postoperative hypothyroidism Postsurgical hypothyroidism Hypothyroidism affecting in first trimester Multigravida of advanced maternal age in first trimester Obesity in , antepartum Obesity complicating , childbirth, or the puerperium, antepartum condition or complication At risk for complication of Family history of trisomy 13 documented in this encounter Additional Health Concerns Active Problems Noted Date Diagnosed Date OB Reminders 04/08/2024 documented as of this encounter Care Teams Self Sealing Fuel Tank Builder Relationship Specialty Start Date End Date Kelsey Vitale DO [address] [place] [address] PCP - General Family Medicine 11/02/23 documented as of this encounter
--- OUTSIDE RECORDS SUMMARY | 2024-10-22 12:17 | External Medical Summary ---
Author Name Unknown Address Unknown Organization K01:[facility] - [address] [facility] [place] [address] Laboratory Report Ordering Provider Test Date Status BK RICHARDSON 05/22/2024 16:07:33 Final Observation Date Value Abnormality Reference (Units ) Status TSH 05/22/2024 16:07:33 1.55 0.27-4.20 (uIU/mL) Final Performing Location [facility] - [address] [facility] [address]
--- NOTE | 2024-10-22 18:11 | Obstetrical Progress Note ---
Date of Service October 22, 2024 Assessment & Plan Admission and Anticipated Discharge Date Admission Date: October 22, 2024 Subjective Patient i reevaluated Fels well, no complaints Ate lunch and dinner with no nausea Mild irregular cramps, on and off No LOF/VB +FM FHR categ I [place] mild irregular ctxs Continue to monitor closely Results & Data Vital Signs (Past 12 Hours) Vital Signs Temp Pulse Resp BP 10/22/24 17:43 18 10/22/24 17:43 18 10/22/24 15:29 36.6 C 90 18 131/83 10/22/24 11:35 18 10/22/24 11:35 36.7 C 18 10/22/24 10:55 96 H 18 135/86 10/22/24 08:21 36.6 C 18 10/22/24 08:16 107 H 133/80
[2024-10-22] MEDS: miSOPROStoL 50 MCG TAB PO SCH (23:41)
--- NOTE | 2024-10-23 00:14 | Obstetrical Progress Note ---
Date of Service October 23, 2024 Assessment & Plan Admission and Anticipated Discharge Date Admission Date: October 22, 2024 Subjective Late entry from 23:30 Patient is reevaluated Cervdl was removed after 12 hours and she ate, took shower Feels more stronger cramps comapred to before VE; Cervix posterior, moderate ( softer than this morningz), 20% effaced, 1 cm, -3, Patient uncomfortable during exam FHR Categ I [place] no ctxs Discussed to continue with cervical ripening, another Cervidil vs PO PG, patient prefers PO cytotec instead of another cervical insert Continue to monitor closely Cytotec 50 mcg PO, q 4 hours Results & Data Vital Signs (Past 12 Hours) Vital Signs Temp Pulse Resp BP O2 Del Method 10/22/24 23:30 18 10/22/24 23:30 36.8 C 18 10/22/24 23:29 82 138/78 10/22/24 19:00 Room Air 10/22/24 18:58 36.8 C 88 18 129/72 10/22/24 17:43 18 10/22/24 17:43 18 10/22/24 15:29 36.6 C 90 18 131/83
[2024-10-23] MEDS: D5W AND LACTATED RINGERS 1,000 ML IV SCH ×2 (04:02→04:55)
[2024-10-23] MEDS: LEVOTHYROXINE SODIUM 112 MCG TABLET PO SCH (07:31)
[2024-10-23] MEDS ORDERED: Nursing to Pharmacy Communication SCH ×2 (07:45→11:45)
[2024-10-23] MEDS: LEVOTHYROXINE SODIUM 112 MCG TABLET PO ONE (08:18)
[2024-10-23] MEDS ORDERED: LEVOTHYROXINE SODIUM 112 MCG TABLET PO SCH (09:15)
[2024-10-23] MEDS ORDERED: LEVOTHYROXINE 112 MCG PO SCH (09:15)
[2024-10-23] MEDS: PRENATAL VITAMIN 1 TAB PO SCH (11:38)
--- NOTE | 2024-10-23 13:16 | Labor Progress Brief Note ---
Date of Service October 23, 2024 Assessment & Plan Admission and Anticipated Discharge Date Admission Date: October 22, 2024 Physical Exam Genitourinary: Manual OB Exam: + cervical dilation fingertip, + cervical effacement 40% and 50% and + station high OB Exam Monitor Tracing: + external FHT monitor used, + external uterine monitor used, + category I and + normal FHT variability Cervix still unripe and very posterior. patient is uncomfortable with exams. Will continue with Cytotec for ripening. Results & Data Vital Signs (Past 12 Hours) Vital Signs Temp Pulse Resp BP 10/23/24 10:53 20 10/23/24 10:53 20 10/23/24 10:30 20 10/23/24 10:30 20 10/23/24 09:54 101 H 135/86 10/23/24 08:53 20 10/23/24 08:53 20 10/23/24 08:15 18 10/23/24 08:15 18 10/23/24 07:37 20 10/23/24 07:37 36.7 C 20 10/23/24 07:34 93 H 137/87 10/23/24 03:18 36.9 C 87 16 120/63
[2024-10-23] MEDS: LACTATED RINGER'S 1,000 ML IV PRN (14:39)
[2024-10-23] MEDS: DINOPROSTONE 10 MG INSERT PV ONE (21:50)
--- NOTE | 2024-10-23 21:58 | Labor Progress Brief Note ---
Date of Service October 23, 2024 Assessment & Plan Admission and Anticipated Discharge Date Admission Date: October 22, 2024 Physical Exam Genitourinary: Manual OB Exam: + cervical dilation fingertip, + cervical effacement 40% and 50% and + station high OB Exam Monitor Tracing: + external FHT monitor used, + external uterine monitor used, + category I and + normal FHT variability Cervidil placed in posterior vaginal fornix Results & Data Vital Signs (Past 12 Hours) Vital Signs Temp Pulse Resp BP 10/23/24 19:03 16 10/23/24 19:03 36.9 C 16 10/23/24 19:02 97 H 145/84 H 10/23/24 16:30 20 10/23/24 16:30 20 10/23/24 14:56 86 129/66 10/23/24 14:40 36.5 C 10/23/24 14:23 88 141/89 H 10/23/24 13:32 18 10/23/24 13:32 18 10/23/24 13:00 18 10/23/24 13:00 18 10/23/24 10:53 20 10/23/24 10:53 20 10/23/24 10:30 20 10/23/24 10:30 20
[2024-10-24] MEDS ORDERED: Nursing to Pharmacy Communication SCH (09:00)
[2024-10-24] MEDS: LEVOTHYROXINE SODIUM 112 MCG TABLET PO SCH (09:00)
--- NOTE | 2024-10-24 09:11 | Obstetrical Progress Note ---
Date of Service October 24, 2024 Assessment & Plan Admission and Anticipated Discharge Date Admission Date: October 22, 2024 Subjective Patient is related. Day 3 of induction of labor at term for AMA, She has received p.o. Cytotec yesterday did not going to labor at all and cervix has not changed. Another Cervidil was placed last night for cervical ripening. Patient feels well no complaints other than back pain when baby kicks. She denies contractions, leakage of fluid, vaginal bleeding. She reports good movements. heart rate had been category 1 with episodes of minimal variability, no decelerations, multiple accelerations present. Discussed option of mechanical dilatation with Faria balloon and oxytocin per protocol. Patient understand and agrees. She was placed in dorsal lithotomy position, speculum was placed in the vagina, cervidil was removed, cervix was visualized, noted white curdy discharge suggesting vaginal Portia. The cervix was cleaned with Betadine solution x 4. Tip of Faria catheter was inserted through the cervical os and inflated with 40 mL of sterile water. It was checked to be in, cervix 2-3 cm/ 50%. It was attached to medial thigh with minimal tension/ traction. Continue monitor closely, Start oxytocin per protocol. Diflucan for portia Miralax, MOM, colace for constipation. All questions were answered. Results & Data Vital Signs (Past 12 Hours) Vital Signs Temp Pulse Resp BP 10/24/24 07:00 36.6 C 10/24/24 07:00 85 18 135/83 10/24/24 04:51 36.8 C 78 16 137/88 10/23/24 23:54 77 139/87 10/23/24 23:51 14 10/23/24 23:51 36.6 C 14
[2024-10-24] MEDS: ACETAMINOPHEN 1,000 MG/100 ML VIAL IV PRN (09:31)
[2024-10-24] MEDS: POLYETHYLENE (MIRALAX) 17 GM PACK PO SCH (10:20)
[2024-10-24] MEDS: MAGNESIUM HYDROXIDE SUSP 30 ML UDC PO PRN (10:20)
[2024-10-24] MEDS: FLUCONAZOLE 50 MG TAB PO ONE (10:20)
[2024-10-24] MEDS: DOCUSATE SODIUM 100 MG CAP PO SCH (10:20)
[2024-10-24] MEDS: OXYTOCIN 30 UNITS/NSS 30 UNITS/500 ML BAG IV PRN (12:07)
--- NOTE | 2024-10-24 16:19 | Obstetrical Progress Note ---
Date of Service October 24, 2024 Assessment & Plan Admission and Anticipated Discharge Date Admission Date: October 22, 2024 Subjective FHR had periods of absent variability No decels VE; sujey was in vagina, cervix is still very high and posterior, 4/50%/ -4, tight bag, unable to perform scalp stim due to patient's discomfort, desires AROM after epidural Bedside ultrasound was performed by myself, vertex, direct occiput posterior position movement and breathings seen, CAROL 6.1 cm, EFW is [id number] g, heart rate now has minimal variability and had accelerations 15X15, no decelerations, toco shows contractions every 2 to 4 minutes discussed the findings, options of continuing for trial of labor for vaginal versus primary . Understand the risks and benefits of both sides, decide to have epidural and then we will perform AROM to check the amniotic fluid and perform scalp submission and reevaluate status, Continue to monitor closely, all questions were answered. Results & Data Vital Signs (Past 12 Hours) Vital Signs Temp Pulse Resp BP 10/24/24 14:57 36.6 C 82 18 143/84 H 10/24/24 13:10 85 18 139/91 10/24/24 12:04 88 125/73 10/24/24 11:06 36.8 C 82 20 134/77 10/24/24 07:00 36.6 C 10/24/24 07:00 85 18 135/83 10/24/24 04:51 36.8 C 78 16 137/88
[2024-10-24] MEDS: fentANYL 2 MCG/ML BUPIVacaine 0.125%-NSS 100ML BAG ONE (17:17)
[2024-10-24] MEDS: SODIUM CHLORIDE 0.9% PF INJ 10 ML VIAL ONE (17:17)
[2024-10-24] MEDS: BUPIVACAINE 0.25% PF 30 ML VIAL ONE (17:17)
[2024-10-24] MEDS ORDERED: diphenhydrAMINE 50 MG/ML VIAL IV PRN (17:23)
[2024-10-24] MEDS ORDERED: fentaNYL citrate PF 100 MCG/2 ML VIAL EPI PRN (17:23)
[2024-10-24] MEDS ORDERED: PROMETHAZINE 6.25 MG/50.25 ML BAG IV PRN (17:23)
[2024-10-24] MEDS ORDERED: ONDANSETRON INJ 2 MG/ML 2 ML VIAL IV PRN (17:23)
[2024-10-24] MEDS ORDERED: LIDOCAINE 2% MPF LOCAL 5 ML VIAL EPI PRN (17:23)
[2024-10-24] MEDS ORDERED: NALOXONE HCL 0.4 MG/1 ML VIAL/CARP IV PRN (17:23)
[2024-10-24] MEDS ORDERED: SODIUM CHLORIDE 0.9% PF INJ 10 ML VIAL EPI PRN (17:23)
[2024-10-24] MEDS ORDERED: BUPIVACAINE 0.25% PF 30 ML VIAL EPI PRN (17:23)
[2024-10-24] MEDS ORDERED: fentANYL 2 MCG/ML BUPIVacaine 0.125%-NSS 100ML BAG EPI PRN (17:23)
[2024-10-24] MEDS ORDERED: NALOXONE HCL 1 MG in SODIUM CHLORIDE 0.9% 1,000 ML IV PRN (17:23)
[2024-10-24] MEDS ORDERED: ePHEDrine sulfate 50 MG/ML AMP IV PRN (17:23)
[2024-10-24] MEDS ORDERED: NALBUPHINE HCL INJ 10 MG/ML AMP IV PRN (17:23)
[2024-10-24] MEDS: ePHEDrine sulfate 50 MG/ML AMP ONE (17:23)
[2024-10-24] MEDS ORDERED: ROPIVACAINE 0.5% PF 5 MG/ML 20 ML VIAL EPI PRN (17:23)
--- NOTE | 2024-10-24 17:23 | Anesthesiology Consultation ---
Date of Service October 24, 2024 Assessment & Plan Chart Review Chart Review: Patient NOT seen in Pre Admission Testing and Acceptable Risk for Labor Epidural Consults Requested none ASA ASA2 Proposed Anesthesia Anesthesia Type: Labor Epidural Risk / Benefits Reviewed With: PT / POA / Parent / Guardian, Accepts Plan and Informed Consent Obtained History Height/Weight Height: 5 ft 8 in Weight: 108.409 kg Allergies Allergy/AdvReac Type Severity Reaction Status Date / Time Sulfa (Sulfonamide Allergy Intermediate Rash Verified 10/22/24 08:52 Antibiotics) Medications Home Medications Medication Instructions Recorded Confirmed Last Taken levothyroxine 112 mcg capsule 112 mcg PO Q OTHER DAY 10/22/24 10/23/24 10/22/24 vits no.124-ferrous fum 1 tab PO DAILY 10/22/24 10/22/24 10/21/24 27 mg iron-folic acid 800 mcg tablet ( Vitamin) levothyroxine 112 mcg tablet 224 mcg PO Q OTHER DAY 10/23/24 10/23/24 10/21/24 Active Medications Generic Name Dose Route Start Last Admin Trade Name Freq PRN Reason Stop Dose Admin Docusate Sodium 100 mg 10/24/24 09:30 10/24/24 10:20 Docusate Sodium 100 Mg Cap PO 11/23/24 09:29 100 mg BID EMELY Administration Acetaminophen 1,000 mg in 100 mls @ 400 mls/hr 10/23/24 00:34 10/24/24 09:48 Ofirmev IV 10/26/24 00:33 Infused Q8H PRN Infusion Pain Lactated Ringer's 1,000 mls @ 125 mls/hr 10/23/24 11:40 10/24/24 16:40 Lr IV 11/22/24 11:39 125 mls/hr .Q8H PRN Infusion L&D Protocol Protocol Oxytocin 30 units in 500 mls @ 0 mls/hr 10/24/24 09:11 10/24/24 16:45 Pitocin 30 Units/Nss IV 10/26/24 09:10 0 units/hr .Q0M PRN 0 mls/hr Labor Induction/Augmentation Titration Protocol 0 UNITS/HR Levothyroxine Sodium 112 mcg 10/24/24 06:30 10/24/24 09:00 Levothyroxine Sodium 112 Mcg Tablet PO 11/23/24 06:29 112 mcg Q2D@0630 EMELY Administration Magnesium Hydroxide 30 ml 10/24/24 09:25 10/24/24 10:20 Magnesium Hydroxide Susp 30 Ml Udc PO 11/23/24 09:24 30 ml Q6H PRN Administration Constipation Polyethylene Glycol 17 gm 10/24/24 09:30 10/24/24 10:20 Polyethylene (Miralax) 17 Gm Pack PO 11/23/24 09:29 17 gm DAILY EMELY Administration Prenat Multivit/[place]/Iron/Folic Ac 1 tab 10/23/24 09:15 10/24/24 09:00 Vitamin 1 Tab PO 11/22/24 09:14 Not Given DAILY EMELY Past Medical History Medical History AMA (advanced maternal age) primigravida 35+ Marginal insertion of umbilical cord affecting management of mother in third trimester Exercise / Class Metabolic Activity II 4-5 Yardwork/Stairs/Walk up hill Past Family History Family History Mother Hypertension Hyperlipidemia Father Hypertension Hyperlipidemia Past Surgical History Surgical History Hx of partial thyroidectomy Past Anesthesia History No Hx of Anesthesia Complications and No Family Hx of Anesthesia Complications History of PONV No Hx of PONV and No Hx of Motion Sickness Social History Smoking Status: Former smoker Do You Dip or Chew Tobacco: No Hx Alcohol Use: No Hx Substance Use: No Physical Exam Vital Signs Last Vital Signs Temp 36.6 C 10/24/24 14:57 Pulse 90 10/24/24 17:21 Resp 18 10/24/24 14:57 BP 139/79 10/24/24 17:21 Pulse Ox 100 10/24/24 17:19 O2 Del Method Room Air 10/22/24 19:00 ENMT Mouth: no dentition abnormality Thyromental Distance: > or= 3.5 Finger Breadths Mallampati Class: II Neck normal visual inspection Respiratory normal respiratory effort Auscultation: lungs clear to auscultation bilaterally Cardiovascular Rate/Rhythm: regular rate and regular rhythm Psychiatric Orientation: alert Testing Laboratory Results 10/22/24 10:26 10/22/24 10:26 Blood Type O Positive 10/22/24 10:26 Antibody Screen NEGATIVE 10/22/24 10:26
[2024-10-24] MEDS: LIDOCAINE 2%/EPINEPHRINE 1:200,000 20 ML PF ONE (17:24)
[2024-10-24] MEDS: fentaNYL citrate PF 100 MCG/2 ML VIAL ONE (17:24)
--- NOTE | 2024-10-24 17:46 | Obstetrical Progress Note ---
Date of Service October 24, 2024 Assessment & Plan Admission and Anticipated Discharge Date Admission Date: October 22, 2024 Subjective patient received epidural and comfortable now, oxytocin was stopped before epidural heart rate 140's, minimal variability, no decelerations vaginal exam, cervix is 5 cm dilated, 50% effaced, tight bulging bag is ruptured, clear fluid was obtained head is at -2 station, scalp stimulation caused heart rate acceleration to 170s came down back to 150s with increased variability, Continue to monitor closely Results & Data Vital Signs (Past 12 Hours) Vital Signs Temp Pulse Resp BP Pulse Ox 10/24/24 17:44 98 H 133/72 10/24/24 17:42 101 H 123/78 10/24/24 17:39 94 H 142/81 H 100 10/24/24 17:37 93 H 133/73 10/24/24 17:35 104 H 125/77 10/24/24 17:34 89 100 10/24/24 17:33 89 126/75 10/24/24 17:31 90 126/76 10/24/24 17:29 90 123/76 98 10/24/24 17:27 89 123/73 10/24/24 17:25 85 134/70 10/24/24 17:24 92 H 99 10/24/24 17:23 90 130/64 10/24/24 17:21 90 139/79 10/24/24 17:19 100 10/24/24 17:19 92 H 10/24/24 17:19 93 H 136/75 10/24/24 17:17 93 H 131/73 10/24/24 17:15 96 H 160/76 H 10/24/24 17:14 100 10/24/24 17:14 95 H 10/24/24 17:14 96 H 162/101 H 10/24/24 17:11 91 H 10/24/24 17:11 136/84 10/24/24 17:11 90 142/87 H 10/24/24 17:09 92 H 100 10/24/24 17:04 107 H 100 10/24/24 16:59 87 100 10/24/24 16:54 93 H 99 10/24/24 16:49 88 100 10/24/24 16:44 88 99 10/24/24 16:39 86 152/84 H 99 10/24/24 14:57 36.6 C 82 18 143/84 H 10/24/24 13:10 85 18 139/91 10/24/24 12:04 88 125/73 10/24/24 11:06 36.8 C 82 20 134/77 10/24/24 07:00 36.6 C 10/24/24 07:00 85 18 135/83
[2024-10-24] MEDS: BUPIVACAINE 0.25% PF 30 ML VIAL EPI STA (19:05)
[2024-10-24] MEDS: fentaNYL citrate PF 100 MCG/2 ML VIAL EPI STA (19:05)
[2024-10-24] MEDS: LIDOCAINE 2%/EPINEPHRINE 1:200,000 20 ML PF EPI STA (19:06)
[2024-10-24] MEDS: SODIUM CHLORIDE 0.9% PF INJ 10 ML VIAL EPI STA (19:06)
--- NOTE | 2024-10-24 19:44 | Obstetrical Progress Note ---
Date of Service October 24, 2024 Assessment & Plan Admission and Anticipated Discharge Date Admission Date: October 22, 2024 Subjective Patient is reevaluated She has been resting FHR categ I [place] not showing any contractions Oxytocin was restarted at 19:05 VE; 5/ 50%/ -2, IUPC is placed Continue to increase Oxytocin per protocol and monitor closely Results & Data Vital Signs (Past 12 Hours) Vital Signs Temp Pulse Resp BP Pulse Ox 10/24/24 19:39 96 H 100 10/24/24 19:35 81 130/73 10/24/24 19:34 81 100 10/24/24 19:29 83 106/55 L 100 10/24/24 19:24 78 113/59 L 100 10/24/24 19:19 88 115/58 L 100 10/24/24 19:14 91 H 121/59 L 100 10/24/24 19:10 95 H 121/63 10/24/24 19:09 103 H 100 10/24/24 19:05 91 H 123/71 10/24/24 19:04 92 H 98 10/24/24 18:59 94 H 124/72 98 10/24/24 18:55 92 H 123/72 10/24/24 18:54 95 H 98 10/24/24 18:50 94 H 131/72 10/24/24 18:49 99 H 99 10/24/24 18:45 93 H 18 132/75 10/24/24 18:44 98 H 100 10/24/24 18:39 93 H 18 135/74 99 10/24/24 18:34 99 10/24/24 18:34 91 H 10/24/24 18:34 90 136/76 10/24/24 18:30 90 18 130/76 10/24/24 18:29 93 H 98 10/24/24 18:26 90 128/66 10/24/24 18:24 92 H 98 10/24/24 18:19 86 18 127/74 97 10/24/24 18:14 88 128/72 99 10/24/24 18:09 90 18 124/71 98 10/24/24 18:05 88 121/72 10/24/24 18:04 89 99 10/24/24 18:00 91 H 124/66 10/24/24 17:59 89 100 10/24/24 17:54 88 100 03/28/25 17:50 88 18 122/71 10/24/24 17:49 89 98 10/24/24 17:44 100 10/24/24 17:44 98 H 10/24/24 17:44 98 H 18 133/72 10/24/24 17:42 101 H 123/78 10/24/24 17:39 94 H 142/81 H 100 10/24/24 17:37 93 H 18 133/73 10/24/24 17:35 104 H 18 125/77 10/24/24 17:34 89 100 10/24/24 17:33 89 126/75 10/24/24 17:31 90 20 126/76 10/24/24 17:29 90 123/76 98 10/24/24 17:27 89 20 123/73 10/24/24 17:25 85 134/70 10/24/24 17:24 92 H 99 10/24/24 17:23 90 20 130/64 10/24/24 17:21 90 139/79 10/24/24 17:19 100 10/24/24 17:19 92 H 10/24/24 17:19 93 H 20 136/75 10/24/24 17:17 93 H 131/73 10/24/24 17:15 96 H 20 160/76 H 10/24/24 17:14 100 10/24/24 17:14 95 H 10/24/24 17:14 96 H 162/101 H 10/24/24 17:11 91 H 10/24/24 17:11 136/84 10/24/24 17:11 90 18 142/87 H 10/24/24 17:09 92 H 100 10/24/24 17:04 107 H 100 10/24/24 16:59 87 100 10/24/24 16:54 93 H 99 10/24/24 16:49 88 100 10/24/24 16:44 88 99 10/24/24 16:39 86 18 152/84 H 99 10/24/24 14:57 36.6 C 82 18 143/84 H 10/24/24 13:10 85 18 139/91 10/24/24 12:04 88 125/73 10/24/24 11:06 36.8 C 82 20 134/77
--- NOTE | 2024-10-24 23:10 | Obstetrical Progress Note ---
Date of Service October 24, 2024 Assessment & Plan Admission and Anticipated Discharge Date Admission Date: October 22, 2024 Subjective Patient is reevaluated She feels well no complaints VE: unchanged, 5/ 50%/ -2 FHR categ I with episodes of minimal variability, accels+, no decels, + response to scalp stimulation IUPC documenting ctxs q 2-3 min Discussed the findings, end of day 3 for IOL, no progress despite all medications, AROM, position change Recommended Primary Csection. Patient understands C section is a major surgery, with risks including but not limited to bleeding , infection, injury to surrounding organs like bowels, bladder, ureters, adhesions, scarring, wound infection, blood cloths in legs/ lungs, longer recovery. All questions were answered. She signed an informed consent. Results & Data Vital Signs (Past 12 Hours) Vital Signs Temp Pulse Resp BP Pulse Ox 10/24/24 23:04 100 H 100 10/24/24 22:59 100 H 100 10/24/24 22:54 102 H 100 10/24/24 22:50 86 130/75 10/24/24 22:49 90 100 10/24/24 22:44 76 95 10/24/24 22:39 77 96 10/24/24 22:36 76 128/70 10/24/24 22:34 80 95 10/24/24 22:29 75 95 10/24/24 22:24 77 96 10/24/24 22:20 77 132/72 10/24/24 22:19 78 97 10/24/24 22:14 78 98 10/24/24 22:09 79 99 10/24/24 22:06 89 132/78 10/24/24 22:04 86 99 10/24/24 21:59 90 100 10/24/24 21:54 88 100 10/24/24 21:51 85 133/63 10/24/24 21:49 83 98 10/24/24 21:44 79 99 10/24/24 21:39 84 99 10/24/24 21:35 80 128/60 10/24/24 21:34 77 100 10/24/24 21:29 87 100 10/24/24 21:24 82 99 10/24/24 21:21 80 127/66 10/24/24 21:19 85 100 10/24/24 21:14 81 99 10/24/24 21:09 76 97 10/24/24 21:05 73 129/66 10/24/24 21:04 76 97 10/24/24 21:00 18 10/24/24 21:00 37.0 C 18 10/24/24 20:59 72 98 10/24/24 20:54 76 98 10/24/24 20:50 75 122/73 10/24/24 20:49 73 98 10/24/24 20:44 76 98 10/24/24 20:39 91 H 99 10/24/24 20:36 81 134/71 10/24/24 20:34 74 100 10/24/24 20:29 87 100 10/24/24 20:24 78 100 10/24/24 20:20 85 128/67 10/24/24 20:19 86 100 10/24/24 20:14 82 122/66 96 10/24/24 20:09 82 123/70 96 10/24/24 20:04 78 124/66 98 10/24/24 20:00 77 120/64 10/24/24 19:59 78 99 10/24/24 19:56 77 118/62 10/24/24 19:54 81 99 10/24/24 19:50 85 118/58 L 10/24/24 19:49 82 100 10/24/24 19:45 81 131/67 10/24/24 19:44 81 100 10/24/24 19:41 78 127/62 10/24/24 19:39 96 H 100 10/24/24 19:35 81 130/73 10/24/24 19:34 81 100 10/24/24 19:29 83 106/55 L 100 10/24/24 19:24 78 113/59 L 100 10/24/24 19:19 88 115/58 L 100 10/24/24 19:14 91 H 121/59 L 100 10/24/24 19:10 36.8 C 95 H 18 121/63 10/24/24 19:09 103 H 100 10/24/24 19:05 36.8 C 18 10/24/24 19:05 91 H 123/71 10/24/24 19:04 92 H 98 10/24/24 18:59 94 H 124/72 98 10/24/24 18:55 92 H 123/72 10/24/24 18:54 95 H 98 10/24/24 18:50 94 H 131/72 10/24/24 18:49 99 H 99 10/24/24 18:45 93 H 18 132/75 10/24/24 18:44 98 H 100 10/24/24 18:39 93 H 18 135/74 99 10/24/24 18:34 99 10/24/24 18:34 91 H 10/24/24 18:34 90 136/76 10/24/24 18:30 90 18 130/76 10/24/24 18:29 93 H 98 10/24/24 18:26 90 128/66 10/24/24 18:24 92 H 98 10/24/24 18:19 86 18 127/74 97 10/24/24 18:14 88 128/72 99 10/24/24 18:09 90 18 124/71 98 10/24/24 18:05 88 121/72 10/24/24 18:04 89 99 10/24/24 18:00 91 H 124/66 10/24/24 17:59 89 100 10/24/24 17:54 88 100 10/24/24 17:50 88 18 122/71 10/24/24 17:49 89 98 10/24/24 17:44 100 10/24/24 17:44 98 H 10/24/24 17:44 98 H 18 133/72 10/24/24 17:42 101 H 123/78 10/24/24 17:39 94 H 142/81 H 100 10/24/24 17:37 93 H 18 133/73 10/24/24 17:35 104 H 18 125/77 10/24/24 17:34 89 100 10/24/24 17:33 89 126/75 10/24/24 17:31 90 20 126/76 10/24/24 17:29 90 123/76 98 10/24/24 17:27 89 20 123/73 10/24/24 17:25 85 134/70 10/24/24 17:24 92 H 99 10/24/24 17:23 90 20 130/64 10/24/24 17:21 90 139/79 10/24/24 17:19 100 10/24/24 17:19 92 H 10/24/24 17:19 93 H 20 136/75 10/24/24 17:17 93 H 131/73 10/24/24 17:15 96 H 20 160/76 H 10/24/24 17:14 100 10/24/24 17:14 95 H 10/24/24 17:14 96 H 162/101 H 10/24/24 17:11 91 H 10/24/24 17:11 136/84 10/24/24 17:11 90 18 142/87 H 10/24/24 17:09 92 H 100 10/24/24 17:04 107 H 100 10/24/24 16:59 87 100 10/24/24 16:54 93 H 99 10/24/24 16:49 88 100 10/24/24 16:44 88 99 10/24/24 16:39 86 18 152/84 H 99 10/24/24 14:57 36.6 C 82 18 143/84 H 10/24/24 13:10 85 18 139/91 10/24/24 12:04 88 125/73
[2024-10-24] MEDS: ACETAMINOPHEN 500 MG TAB PO STA (23:38)
[2024-10-24] MEDS: CITRIC ACID/SODIUM CITRATE 15 ML UDC PO SCH (23:39)
[2024-10-24] MEDS: LACTATED RINGER'S 1,000 ML IV SCH (23:52)
--- NOTE | 2024-10-24 23:52 | Communication Note ---
Date of Service: October 24, 2024 OB Plans cessarian delivery for arrest of labor. Epidural is working well. Will plan to dose labor epidural for a surgical anesthetic.
[2024-10-24] MEDS: ceFAZolin 3000MG 3,000 MG/72.5 ML BAG IV SCH (23:55)
[2024-10-24] MEDS: AZITHROMYCIN 500 MG/255 ML BAG IV SCH (23:57)
[2024-10-24] MEDS ORDERED: ONDANSETRON INJ 2 MG/ML 2 ML VIAL ONE (23:59)
[2024-10-24] MEDS ORDERED: OXYTOCIN 10 UNITS/ML VIAL ONE (23:59)
[2024-10-25] MEDS ORDERED: LIDOCAINE 2%/EPINEPHRINE 1:200,000 20 ML PF ONE
[2024-10-25] MEDS ORDERED: LACTATED RINGER'S 1,000 ML IV SCH (00:15)
[2024-10-25] MEDS ORDERED: MoRPHine SULFATE PF 1 MG/ML 10 ML AMP/VIAL ONE (00:38)
[2024-10-25] MEDS ORDERED: METHYLERGONOVINE MALEATE 0.2 MG/ML AMP ONE (01:04)
[2024-10-25] MEDS ORDERED: NALOXONE HCL 0.4 MG/1 ML VIAL/CARP IV PRN (01:15)
[2024-10-25] MEDS ORDERED: NALBUPHINE HCL INJ 10 MG/ML AMP IV PRN (01:15)
[2024-10-25] MEDS ORDERED: NALOXONE HCL 1 MG in SODIUM CHLORIDE 0.9% 1,000 ML IV PRN (01:15)
[2024-10-25] MEDS ORDERED: oxyCODONE HCL IR 5 MG TAB (IMMEDIATE RELEASE) PO PRN ×2 (01:15→19:15)
[2024-10-25] MEDS ORDERED: DC INTRASPINAL MORPHINE SCH (01:15)
[2024-10-25] MEDS ORDERED: HYDROmorphone INJ 0.5 MG/0.5 ML SYR IV PRN ×2 (01:15→19:15)
[2024-10-25] MEDS ORDERED: diphenhydrAMINE 50 MG/ML VIAL IV PRN ×2 (01:15→19:15)
[2024-10-25] MEDS ORDERED: MoRPHine SULFATE 2 MG/ML CARP IV PRN (01:15)
[2024-10-25] MEDS ORDERED: MEPERIDINE HCL 25 MG/ML CARP/VIAL IV PRN (01:15)
[2024-10-25] MEDS ORDERED: NALOXONE HCL 0.08 MG in SYRINGE 1.8 ML IV PRN (01:15)
[2024-10-25] MEDS ORDERED: NO NARCOTICS OR SEDATIVES SCH (01:15)
[2024-10-25] MEDS ORDERED: ePHEDrine sulfate 50 MG/ML AMP IV PRN (01:15)
[2024-10-25] MEDS ORDERED: BENZOCAINE 20% SPRY 85 APPLN/85 GM CAN EXT PRN (01:32)
[2024-10-25] MEDS ORDERED: SENNA 8.6 MG TAB PO PRN (01:32)
[2024-10-25] MEDS ORDERED: HYDROCORTISONE ACETATE 25 MG SUPP PR PRN (01:32)
[2024-10-25] MEDS ORDERED: CALCIUM CARBONATE 500 MG CHEWABLE TAB PO PRN (01:32)
--- NOTE | 2024-10-25 01:44 | Operative Report ---
Post Operative Report Pre & Post Diagnosis Operation Date: 10/24/24 23:00 <No data on this case meets the specified criteria> I identified the patient and participated in the time-out.: Yes Procedure Operation Date: 10/24/24 23:00 Actual Procedures p Section in LD of a [facility] @ 0048 - Miguel A Simmons MD Surgeon Miguel A Simmons MD Computed Tomography Technician Yaritza Dia RN Quantitative Blood Loss (QBL) 612 Findings Consistent with Post-Op Diagnosis Baby was a viable Female infant, delivered at 00: 48 AM encephalic presentation, occipitoposterior, weight is 3395 g, Apgars 8 /9, Maternal findings, normal uterus fallopian tubes and ovaries. Specimens Placenta and cord Drains Faria catheter drained 100 mL of Anesthesia Type Labor Epidural Complications none Disposition Accompanied Patient To Recovery: Yes Indications patient is a 44-year-old G1, P0 at 39 weeks and 3 days of gestation who was admitted on October 22 for induction of labor at term for advanced maternal age. She has received 2 days of cervical ripening with prostaglandins including 2 Cervidil vaginal inserts and multiple dose of p.o. Cytotec. Faria catheter was placed by myself yesterday morning and oxytocin was started per protocol. Artificial rupture of membranes were done in the afternoon and oxytocin was increased. Despite all these measures there was no progress in cervix, arrest of dilatation active phase of labor, heart rate in between category 1 and category 2, remote from delivery. After discussion with the patient and her decision was made to proceed with primary , patient understands the risks and signed informed consent. Description of Procedure Patient was taken to operating room where a spinal anesthesia was given without difficulty. She was placed in dorsal supine position with a leftward tilt. She was prepared and draped in usual sterile fashion. A financial skin incision was made and carried through to the underlying layer of fascia with the Bovie. Fascia was incised in the midline and incision was extended laterally with the help of New scissors. Then the upper aspect of the fascial incision was gr asped with 2 Brayden clamps elevated the underlying rectus muscles were dissected off sharply with New scissors. Same thing was done on the lower incision. Then the muscles were in the midline, peritoneum was identified grasped with 2 pickups and entered sharply with Metzenbaum scissors. Peritoneal incision was extended superior and inferiorly with good visualization of the bladder. The bladder blade was inserted. Vesicouterine peritoneum was identified, grasped with pickups and entered sharply with Metzenbaum scissors, bladder flap was created digitally and bladder blade was reinserted. Uterus was incised in transverse fashion, incision was extended laterally, membranes were ruptured and clear fluid was obtained. Baby's head was at direct occiput posterior position, was delivered without difficulty, followed by shoulders and body with minimal traction without difficulty. Mouth and nose were suctioned there was dried on the field he was vigorously crying and moving. The cord was clamped times and cut at 1 minute delay and then the was handed off to the pediatric team. Then the placenta was delivered manually as intact and complete. Uterus was externalized and cleared of all clots and debris's. Uterine incision was repaired with 0 Vicryl in a running locked fashion, second umbricating layer was placed with the same suture in running locked fashion. Excellent hemostasis achieved. Cul-de-sac and the pelvis was irrigated with warm normal saline and suctioned. Incision was checked of to be hemostatic again. Uterus was returned to the abdomen, parietal peritoneum was reapproximated with 3-0 Vicryl in a running fashion and the muscles were reapproximated in the same suture in a running fashion. All of the fascia and rectus muscles were hemostatic. Rectus fascia was reapproximated with 0 Vicryl starting from both columns meeting in the midline. Subcuticular fat tissue was brought together with 2-0 Vicryl in a running fashion, skin was closed with 4-0 Monocryl in a subcuticular cuticular fashion. The mom and baby tolerated procedure well. Sponge needle instrument count was correct x3. she was given 3 g of cefazolin and 500 mg of azithromycin before surgery. No complications happened, I was present during whole procedure. My virtual office assistant was needed for retraction, hemostasis and aid during delivery of I attest to the content of the Intraoperative Record and any orders documented therein. Any exceptions are noted below.
[2024-10-25] MEDS: DIPHTHER/TETAN/PERTUS Vaccine (Tdap, Adol/Adult) 0.5mL IM ONE (02:15)
[2024-10-25] MEDS: MEASLES, MUMPS & RUBELLA VIRUS VACCINE (MMR) 0.5ML VIAL SQ ONE (02:15)
[2024-10-25] MEDS: KETOROLAC 30 MG/ML VIAL IV SCH (02:16)
[2024-10-25] MEDS: MoRPHine SULFATE PF 1 MG/ML 10 ML AMP/VIAL EPI ONE (02:19)
--- NOTE | 2024-10-25 02:22 | Anesthesiology Progress Note ---
Date of Service October 25, 2024 Anesthesia Post Procedure Vital Signs Vital Signs: Temp Pulse Resp BP Pulse Ox 10/25/24 02:18 73 96 10/25/24 02:15 36.9 C 18 10/25/24 02:13 74 119/57 L 96 10/25/24 02:08 74 96 10/25/24 02:05 36.9 C 18 10/25/24 02:03 96 10/25/24 02:03 79 10/25/24 02:03 77 123/59 L 10/25/24 01:58 74 95 10/25/24 01:55 36.9 C 18 10/25/24 01:53 94 10/25/24 01:53 78 10/25/24 01:53 75 119/60 10/25/24 01:48 78 95 10/25/24 01:45 36.9 C 18 10/25/24 01:44 79 94 10/25/24 01:43 95 10/25/24 01:43 83 10/25/24 01:43 75 115/58 L 10/25/24 00:24 105 H 98 10/25/24 00:20 98 H 142/77 H 10/25/24 00:19 98 H 98 10/25/24 00:14 97 H 100 10/25/24 00:09 100 H 99 10/25/24 00:06 96 H 137/71 10/25/24 00:04 96 H 100 10/24/24 23:59 99 H 100 10/24/24 23:54 95 H 100 10/24/24 23:50 97 H 123/78 10/24/24 23:49 99 H 99 10/24/24 23:44 104 H 100 10/24/24 23:39 109 H 98 10/24/24 23:37 100 H 140/77 10/24/24 23:34 96 H 100 10/24/24 23:30 18 10/24/24 23:30 37.0 C 18 10/24/24 23:29 94 H 100 10/24/24 23:24 105 H 100 10/24/24 23:22 102 H 138/70 10/24/24 23:19 105 H 100 10/24/24 23:14 121 H 99 10/24/24 23:12 103 H 89 L 10/24/24 23:09 105 H 100 10/24/24 23:08 97 H 143/67 H 10/24/24 23:04 100 H 100 10/24/24 22:59 100 H 100 10/24/24 22:54 102 H 100 10/24/24 22:50 86 130/75 10/24/24 22:49 90 100 10/24/24 22:44 76 95 10/24/24 22:39 77 96 10/24/24 22:36 76 128/70 10/24/24 22:34 80 95 10/24/24 22:29 75 95 10/24/24 22:24 77 96 10/24/24 22:20 77 132/72 10/24/24 22:19 78 97 10/24/24 22:14 78 98 10/24/24 22:09 79 99 10/24/24 22:06 89 132/78 10/24/24 22:04 86 99 10/24/24 21:59 90 100 10/24/24 21:54 88 100 10/24/24 21:51 85 133/63 10/24/24 21:49 83 98 10/24/24 21:44 79 99 10/24/24 21:39 84 99 10/24/24 21:35 80 128/60 10/24/24 21:34 77 100 10/24/24 21:29 87 100 10/24/24 21:24 82 99 10/24/24 21:21 80 127/66 10/24/24 21:19 85 100 10/24/24 21:14 81 99 10/24/24 21:09 76 97 10/24/24 21:05 73 129/66 10/24/24 21:04 76 97 10/24/24 21:00 18 10/24/24 21:00 37.0 C 18 10/24/24 20:59 72 98 10/24/24 20:54 76 98 10/24/24 20:50 75 122/73 10/24/24 20:49 73 98 10/24/24 20:44 76 98 10/24/24 20:39 91 H 99 10/24/24 20:36 81 134/71 10/24/24 20:34 74 100 10/24/24 20:29 87 100 10/24/24 20:24 78 100 10/24/24 20:20 85 128/67 03/28/25 20:19 86 100 10/24/24 20:14 82 122/66 96 10/24/24 20:09 82 123/70 96 10/24/24 20:04 78 124/66 98 10/24/24 20:00 77 120/64 10/24/24 19:59 78 99 10/24/24 19:56 77 118/62 10/24/24 19:54 81 99 10/24/24 19:50 85 118/58 L 10/24/24 19:49 82 100 10/24/24 19:45 81 131/67 10/24/24 19:44 81 100 10/24/24 19:41 78 127/62 10/24/24 19:39 96 H 100 10/24/24 19:35 81 130/73 10/24/24 19:34 81 100 10/24/24 19:29 83 106/55 L 100 10/24/24 19:24 78 113/59 L 100 10/24/24 19:19 88 115/58 L 100 10/24/24 19:14 91 H 121/59 L 100 10/24/24 19:10 36.8 C 95 H 18 121/63 10/24/24 19:09 103 H 100 10/24/24 19:05 36.8 C 18 10/24/24 19:05 91 H 123/71 10/24/24 19:04 92 H 98 10/24/24 18:59 94 H 124/72 98 10/24/24 18:55 92 H 123/72 10/24/24 18:54 95 H 98 10/24/24 18:50 94 H 131/72 10/24/24 18:49 99 H 99 10/24/24 18:45 93 H 18 132/75 10/24/24 18:44 98 H 100 10/24/24 18:39 93 H 18 135/74 99 10/24/24 18:34 99 10/24/24 18:34 91 H 10/24/24 18:34 90 136/76 10/24/24 18:30 90 18 130/76 10/24/24 18:29 93 H 98 10/24/24 18:26 90 128/66 10/24/24 18:24 92 H 98 10/24/24 18:19 86 18 127/74 97 03/28/25 18:14 88 128/72 99 10/24/24 18:09 90 18 124/71 98 10/24/24 18:05 88 121/72 10/24/24 18:04 89 99 10/24/24 18:00 91 H 124/66 10/24/24 17:59 89 100 10/24/24 17:54 88 100 10/24/24 17:50 88 18 122/71 10/24/24 17:49 89 98 10/24/24 17:44 100 10/24/24 17:44 98 H 10/24/24 17:44 98 H 18 133/72 10/24/24 17:42 101 H 123/78 10/24/24 17:39 94 H 142/81 H 100 10/24/24 17:37 93 H 18 133/73 10/24/24 17:35 104 H 18 125/77 10/24/24 17:34 89 100 10/24/24 17:33 89 126/75 10/24/24 17:31 90 20 126/76 10/24/24 17:29 90 123/76 98 10/24/24 17:27 89 20 123/73 10/24/24 17:25 85 134/70 10/24/24 17:24 92 H 99 10/24/24 17:23 90 20 130/64 10/24/24 17:21 90 139/79 10/24/24 17:19 100 10/24/24 17:19 92 H 10/24/24 17:19 93 H 20 136/75 10/24/24 17:17 93 H 131/73 10/24/24 17:15 96 H 20 160/76 H 10/24/24 17:14 100 10/24/24 17:14 95 H 10/24/24 17:14 96 H 162/101 H 10/24/24 17:11 91 H 10/24/24 17:11 136/84 10/24/24 17:11 90 18 142/87 H 10/24/24 17:09 92 H 100 10/24/24 17:04 107 H 100 10/24/24 16:59 87 100 10/24/24 16:54 93 H 99 10/24/24 16:49 88 100 10/24/24 16:44 88 99 10/24/24 16:39 86 18 152/84 H 99 10/24/24 14:57 36.6 C 82 18 143/84 H 10/24/24 13:10 85 18 139/91 10/24/24 12:04 88 125/73 10/24/24 11:06 36.8 C 82 20 134/77 10/24/24 07:00 36.6 C 10/24/24 07:00 85 18 135/83 10/24/24 04:51 36.8 C 78 16 137/88 Pain Intensity Abdomen: Pain Intensity: 3 Transfer of Care Handoff Completed per policy Notes Mental Status: alert / awake / arousable Nausea / Vomiting: adequately controlled Pain: adequately controlled Airway Patency, RR, SpO2: stable & adequate BP & HR: stable & adequate Hydration State: stable & adequate Neuraxial Anesthesia: was administered and sensory block is resolving Anesthetic Complications: no major complications apparent and Pt Satisfied with anesthetic care Notes: epidural pulled prior to leaving the OR. Tip intact
[2024-10-25] MEDS: OXYTOCIN 10 UNITS/ML 10ML VIAL IM ONE (04:44)
[2024-10-25] MEDS: LACTATED RINGER'S 1,000 ML IV SCH (05:37)
[2024-10-25] MEDS ORDERED: Nursing to Pharmacy Communication SCH ×2 (05:45→12:15)
[2024-10-25] MEDS: LEVOTHYROXINE SODIUM 112 MCG TABLET PO SCH (06:20)
[2024-10-25] MEDS ORDERED: LEVOTHYROXINE SODIUM 112 MCG TABLET PO SCH (06:30)
[2024-10-25] MEDS: ONDANSETRON INJ 2 MG/ML 2 ML VIAL IV PRN (08:06)
[2024-10-25] MEDS: ceFAZolin 2000MG 2,000 MG/15 ML SYR IV SCH (08:47)
[2024-10-25] MEDS: PROMETHAZINE 6.25 MG/50.25 ML BAG IV PRN (10:10)
[2024-10-25] MEDS: OXYTOCIN 20 UNITS/LR 1,002 ML IV SCH (10:42)
[2024-10-25] MEDS: ACETAMINOPHEN 325 MG TAB PO SCH (11:55)
[2024-10-25] MEDS: SIMETHICONE 80 MG CHEW PO SCH (11:56)
[2024-10-25] MEDS: DOCUSATE SODIUM 100 MG CAP PO SCH (15:19)
[2024-10-25] MEDS: PRENATAL VITAMIN 1 TAB PO SCH (17:50)
[2024-10-25] MEDS: FERROUS SULFATE 325 MG TAB PO SCH (17:50)
[2024-10-25] MEDS ORDERED: diphenhydrAMINE Capsule 25 MG CAP PO PRN (19:15)
[2024-10-25] MEDS ORDERED: ONDANSETRON INJ 2 MG/ML 2 ML VIAL IV PRN (19:15)
[2024-10-25] MEDS ORDERED: PROMETHAZINE 12.5 MG/50.5 ML BAG IV PRN (19:15)
[2024-10-25] MEDS: bisacodyL 5 MG TABEC PO SCH (20:44)
[2024-10-26] MEDS ORDERED: KETOROLAC 30 MG/ML VIAL IV PRN (02:00)
[2024-10-26] MEDS: IBUPROFEN 600 MG TAB PO SCH (06:20)
[2024-10-26 07:37] LABS: Basophils # (auto) 0.04 K/uL (0.00-0.20); Basophils % (auto) 0.3 %; Eosinophils # (auto) 0.17 K/uL (0.00-0.50); Eosinophils % (auto) 1.1 %; Hematocrit (blood only) 30.1 % (37.0-47.0); Hemoglobin 10.3 g/dl (12.0-16.0); Immature Granulocytes # (auto) 0.19 K/uL (0.01-0.20); Immature Granulocytes % (auto) 1.3 %; Lymphocytes % (auto) 8.8 %; Mean Corpuscular Hemoglobin 33.3 pg (25.0-34.0); Mean Corpuscular Hgb Conc 34.2 g/dL (32.0-36.0); Mean Corpuscular Volume 97.4 fL (80.0-100.0); Mean Platelet Volume 8.6 fL (9.4-12.4); Monocytes # (auto) 0.95 K/uL (0.11-0.59); Monocytes % (auto) 6.4 %; Neutrophils # (auto) 12.14 K/uL (1.40-6.50); Neutrophils % (auto) 82.1 %; Platelet Count 150 K/uL (130-400); RDW Coefficient of Variation 13.7 % (11.5-14.5); RDW Standard Deviation 48.7 fL (36.4-46.3); Red Blood Count 3.09 M/uL (4.20-5.40); White Blood Count 14.79 K/ul (4.8-10.8)
--- NOTE | 2024-10-26 08:32 | Obstetrical Progress Note ---
Date of Service October 26, 2024 Subjective Ambulation: ambulating normally Voiding: no voiding problems Passing Gas:: Yes Diet Tolerance:: regular diet Lochia:: Small Feeding Type:: breast feeding Current Pain Level(1-10): 0 doing well. arm less resd and sore now. Physical Exam Constitutional WD/WN, vitals as above Gastrointestinal (Abdomen) Inspection/Auscultation: abdomen normal to inspection incision c//d/i. dressing taken off. abdomen soft and non-tender. Musculoskeletal Extremities: extremities normal to inspection Skin no rashes, warm and dry right IV site is less red. no evidence of cellulitis at this time. Neurologic patellar DTR's 2+ bilat, sensation intact Psychiatric A+Ox3, euthymic affect Results & Data Vital Signs (Past 12 Hours) Vital Signs Temp Pulse Resp BP O2 Del Method 10/26/24 08:20 36.5 C 78 16 120/79 10/26/24 00:30 36.6 C 72 16 112/70 Room Air Laboratory Results 10/22/24 10/24/24 10/26/24 10:26 23:30 07:11 WBC 9.60 14.79 H RBC 3.64 L 3.09 L Hgb 11.8 L 10.3 L Hct 34.3 L 30.1 L MCV 94.2 97.4 MCH 32.4 33.3 MCHC 34.4 34.2 RDW Std Deviation 46.2 48.7 H RDW Coeff of Radha 13.4 13.7 Plt Count 194 150 MPV 8.6 L 8.6 L Immature Gran % (Auto) 1.3 Neut % (Auto) 82.1 Lymph % (Auto) 8.8 [place] % (Auto) 6.4 Eos % (Auto) 1.1 Baso % (Auto) 0.3 Neut # (Auto) 12.14 H Lymph # (Auto) 1.30 [place] # (Auto) 0.95 H Eos # (Auto) 0.17 Baso # (Auto) 0.04 Immature Gran # (Auto) 0.19 Sodium 137 Potassium 3.7 Chloride 108 H Carbon Dioxide 22 Anion Gap 7 BUN 10 Creatinine 0.63 Est Cr Clr Drug Dosing 150.0 eGFR 113.52 BUN/Creatinine Ratio 15.9 Glucose 113 H Calcium 8.9 Total Bilirubin 0.3 AST 19 ALT 25 Alkaline Phosphatase 123 H Total Protein 6.2 Albumin 3.5 Globulin 2.7 Albumin/Globulin Ratio 1.3 Treponema pallidum Ab Negative Blood Type O Positive O Positive Antibody Screen NEGATIVE NEGATIVE
[2024-10-27] MEDS ORDERED: bisacodyL 10 MG SUPP PR PRN (01:32)
[2024-10-27] MEDS: IBUPROFEN 600 MG TAB PO PRN (02:45)
[2024-10-27] MEDS: ACETAMINOPHEN 325 MG TAB PO PRN (02:46)
--- NOTE | 2024-10-27 02:48 | Obstetrical Progress Note ---
Date of Service October 27, 2024 Assessment & Plan Admission and Anticipated Discharge Date Admission Date: October 22, 2024 Subjective Patient is seen and examined. She feels well, no complaints. Pain is under control with oral meds. Ambulating without dizziness Voiding without difficulty Tolerating regular diet with out N&V Flatus + BM none, since the day before admission ( 10/21) Bleeding is minimal No fever/ chills/ CP/ SOB/ N&V/ Leg pain Breast feeding without problems, and supplementing Vital Signs Temp Pulse Resp BP O2 Del Method 10/26/24 20:45 Room Air 10/26/24 20:30 36.5 C 78 18 132/89 Room Air Vital Signs Temp Pulse Resp BP O2 Del Method 10/26/24 20:45 Room Air 10/26/24 20:30 36.5 C 78 18 132/89 Room Air 10/26/24 08:20 36.5 C 78 16 120/79 Lab Results 10/22/24 10/24/24 10/26/24 Range/Units 10:26 23:30 07:11 WBC 9.60 14.79 H (4.8-10.8) K/ul RBC 3.64 L 3.09 L (4.20-5.40) M/uL Hgb 11.8 L 10.3 L (12.0-16.0) g/dl Hct 34.3 L 30.1 L (37.0-47.0) % MCV 94.2 97.4 (80.0-100.0) fL MCH 32.4 33.3 (25.0-34.0) pg MCHC 34.4 34.2 (32.0-36.0) g/dL RDW Std Deviation 46.2 48.7 H (36.4-46.3) fL RDW Coeff of Radha 13.4 13.7 (11.5-14.5) % Plt Count 194 150 (130-400) K/uL MPV 8.6 L 8.6 L (9.4-12.4) fL Immature Gran % (Auto) 1.3 % Neut % (Auto) 82.1 % Lymph % (Auto) 8.8 % [place] % (Auto) 6.4 % Eos % (Auto) 1.1 % Baso % (Auto) 0.3 % Neut # (Auto) 12.14 H (1.40-6.50) K/uL Lymph # (Auto) 1.30 (1.20-3.40) K/uL [place] # (Auto) 0.95 H (0.11-0.59) K/uL Eos # (Auto) 0.17 (0.00-0.50) K/uL Baso # (Auto) 0.04 (0.00-0.20) K/uL Immature Gran # (Auto) 0.19 (0.01-0.20) K/uL Sodium 137 (136-145) mmol/L Potassium 3.7 (3.5-5.1) mmol/L Chloride 108 H (98-107) mmol/L Carbon Dioxide 22 (21-32) mmol/L Anion Gap 7 (3-11) BUN 10 (6-23) mg/dl Creatinine 0.63 (0.6-1.2) mg/dl Est Cr Clr Drug Dosing 150.0 ml/min eGFR 113.52 BUN/Creatinine Ratio 15.9 (10-20) Glucose 113 H (70-99(Fasting)) mg/dl Calcium 8.9 (8.6-10.3) mg/dl Total Bilirubin 0.3 (0.2-1.0) mg/dl AST 19 (13-39) U/L ALT 25 (7-52) U/L Alkaline Phosphatase 123 H (34-104) U/L Total Protein 6.2 (6.0-8.3) gm/dl Albumin 3.5 (3.4-5.0) gm/dl Globulin 2.7 (2.5-4.0) gm/dl Albumin/Globulin Ratio 1.3 (0.9-2) Treponema pallidum Ab Negative (Negative) Blood Type O Positive O Positive Antibody Screen NEGATIVE NEGATIVE PE: General: Alert, orientedx3, NAD CVS: S1S2 RRR Lungs; CTAB Abd: soft, NT, ND, BS+, fundus firm, below Umbilicus Incision: Clean, dry, intact Perineum intact, Lochia rubra minimal Ext; NT, 2+ edema, Homans sign neg/ neg AP: 44 yo s/p Primary C Section, pod# 2 VSS Afebrile doing well Continue routine postop care Encourage ambulation, PO intake H/o constipation, no BM since 10/21, plan to continue with colace, miralax daily and start MOM All questions were answered D/C home , f/u in office Results & Data Vital Signs (Past 12 Hours) Vital Signs Temp Pulse Resp BP O2 Del Method 10/26/24 20:45 Room Air 10/26/24 20:30 36.5 C 78 18 132/89 Room Air
[2024-10-27 06:12] LABS: Basophils # (auto) 0.03 K/uL (0.00-0.20); Basophils % (auto) 0.4 %; Eosinophils # (auto) 0.22 K/uL (0.00-0.50); Eosinophils % (auto) 2.6 %; Hematocrit (blood only) 29.7 % (37.0-47.0); Hemoglobin 10.1 g/dl (12.0-16.0); Immature Granulocytes # (auto) 0.14 K/uL (0.01-0.20); Immature Granulocytes % (auto) 1.7 %; Lymphocytes # (auto) 1.57 K/uL (1.20-3.40); Lymphocytes % (auto) 18.8 %; Mean Corpuscular Volume 97.1 fL (80.0-100.0); Mean Platelet Volume 8.7 fL (9.4-12.4); Monocytes # (auto) 0.64 K/uL (0.11-0.59); Monocytes % (auto) 7.7 %; Neutrophils # (auto) 5.76 K/uL (1.40-6.50); Neutrophils % (auto) 68.8 %; Platelet Count 172 K/uL (130-400); RDW Coefficient of Variation 13.2 % (11.5-14.5); Red Blood Count 3.06 M/uL (4.20-5.40); White Blood Count 8.36 K/ul (4.8-10.8)
[2024-10-27] MEDS ORDERED: MAGNESIUM HYDROXIDE SUSP 30 ML UDC PO ONE (14:01)
--- NOTE | 2024-10-27 14:01 | Obstetrical Progress Note ---
Date of Service October 27, 2024 Assessment & Plan Admission and Anticipated Discharge Date Admission Date: October 22, 2024 Subjective Patient has diffuse rash on her abdomen and sides up to flank/ back area It is very itchy She has not moved her bowels yet Able to eat and drink Passing gas Will continue with PO MOM Hydrocortisone ointment, but will need systemic oral therapy Consult Hospitalist Results & Data Vital Signs (Past 12 Hours) Vital Signs Temp Pulse Resp BP BP Pulse Ox O2 Del Method 10/27/24 12:38 36.9 C 80 16 130/88 117/71 97 10/27/24 08:15 36.9 C 80 16 117/71 97 Room Air 10/27/24 02:30 36.6 C 78 18 130/88 Room Air
[2024-10-27] MEDS ORDERED: OR MISCELLANEOUS MED ONE (14:29)
--- NOTE | 2024-10-27 14:31 | Obstetrical Progress Note ---
Date of Service October 27, 2024 Assessment & Plan Admission and Anticipated Discharge Date Admission Date: October 22, 2024 Subjective Hospitalist ELSY texted back and recommended PO Benadryl and Prednisone to start today, if no improvement then they they will see her tomorrow Results & Data Vital Signs (Past 12 Hours) Vital Signs Temp Pulse Resp BP BP Pulse Ox O2 Del Method 10/27/24 12:38 36.9 C 80 16 130/88 117/71 97 10/27/24 08:15 36.9 C 80 16 117/71 97 Room Air
[2024-10-27] MEDS: HYDROCORTISONE 2.5% OINT 20 GM TUBE EXT SCH (15:00)
[2024-10-27] MEDS: predniSONE 10 MG TABLET PO SCH (15:41)
[2024-10-27] MEDS: diphenhydrAMINE Capsule 25 MG CAP PO SCH (23:19)
[2024-10-28] MEDS: LEVOTHYROXINE SODIUM 112 MCG TABLET PO SCH (06:21)
[2024-10-28] MEDS: predniSONE 5 MG TAB PO SCH (06:22)
--- NOTE | 2024-10-28 07:15 | Obstetrical Progress Note ---
Date of Service October 28, 2024 Assessment & Plan Admission and Anticipated Discharge Date Admission Date: October 22, 2024 Subjective Patient is seen and examined. She feels well, no complaints. Pain is under control with oral meds. Ambulating without dizziness Voiding without difficulty Tolerating regular diet with out N&V Flatus + BM + Bleeding is minimal No fever/ chills/ CP/ SOB/ N&V/ Leg pain Breast and bottle feeding without problems Vital Signs Temp Pulse Resp BP O2 Del Method 10/27/24 23:15 36.7 C 61 14 142/88 H Room Air 10/27/24 20:00 36.4 C L 77 16 133/78 Room Air PE: General: Alert, orientedx3, NAD CVS: S1S2 RRR Lungs; CTAB Abd: soft, NT, ND, BS+, fundus firm, below Umbilicus, rash is less red and looks better Incision: Clean, dry, intact Perineum intact, Lochia rubra minimal Ext; NT, , homans neg/ neg AP: 44 yo s/p C Section, pod# 4 VSS Afebrile doing well Continue routine postop care Encourage ambulation, PO intake All questions were answered D/C home , /fu in office Discussed how to use meds, when to call Results & Data Vital Signs (Past 12 Hours) Vital Signs Temp Pulse Resp BP O2 Del Method 10/27/24 23:15 36.7 C 61 14 142/88 H Room Air 10/27/24 20:00 36.4 C L 77 16 133/78 Room Air
[2024-10-28 10:16] VITALS: BP 123/78; PULSE 63; RESP 17; TEMP 98.2; O2SAT 98
== END 2024-10-28 14:15 | disposition home or self-care (01) | DRG 787 ==
LOC: 4S1 07:53 → 4E2 10-25 04:30